=== PATIENT | male | born 1955 | race Caucasian/White ===

== ENCOUNTER → 2017-07-31 08:10 | Outpatient (CLI) | payer OTHER, SELFPAY ==
--- NOTE | 2017-07-31 08:10 | DT_ITS ---
This patient was seen during an EMR downtime July 31, 2017 - August 07, 2017. This patient may have a combination of paper and electronic documentation or all paper documentation. All documentation is viewable within the e-chart portion of [facility] for each patient visit.
[2017-08-06 09:13] LABS: ALB/GLOB Ratio 1.2 RATIO (0.9-2.4); AST(SGOT) 12 U/L (15-37); Alanine Aminotransfer ALT/SGPT 34 U/L (16-61); Albumin, Serum 3.9 g/dL (3.2-5.0); Alkaline Phosphatase 66 U/L (45-117); BUN 15 mg/dL (7-18); BUN/Creat Ratio 15.6 RATIO (10-20); Calcium,Total 8.9 mg/dL (8.5-10.1); Creatinine, Serum 0.96 mg/dL (0.70-1.30); EST Glomerular Filtration Rate 84 mL/min (>60); Est Glom Filt Rate - Afr Amer 102 mL/min (>60); Globulin 3.3 g/dL (2.2-4.2); Glucose 104 mg/dL (74-106); Protein, Total 7.2 g/dL (6.4-8.2)
[2017-08-06 09:14] LABS: Anion Gap 7 (5-15); Chloride 104 mmol/L (98-107); Cholesterol 175 mg/dL (200); High Density Lipoprotein 63 mg/dL; PSA,Total - Annual Screen 5.47 ng/mL (0.00-4.00); Potassium 4.4 mmol/L (3.5-5.1); Sodium Level 140 mmol/L (136-145); Triglycerides 80 mg/dL; Very Low Density Lipoprotein 16 mg/dL (5-40)
== END ==
PROVIDERS: Family Provider Family Medicine; PCP Family Medicine; Visit Provider Family Medicine
DX: Z00.00 Encounter for general adult medical examination without abnormal findings (principal); Z12.5 Encounter for screening for malignant neoplasm of prostate; I10 Essential (primary) hypertension; E78.00 Pure hypercholesterolemia, unspecified
CPT/HCPCS: 36415; 80053; 80061; 84153; G0103

== ENCOUNTER → 2017-10-31 11:06 | Outpatient (CLI) | payer OTHER, SELFPAY ==
[2017-11-01 13:42] LABS: PSA, Free 0.96 ng/mL; PSA, Free % 18.5 % (.); PSA, Total Ultrasensitive 5.2 ng/mL (0.0-4.0)
== END ==
PROVIDERS: Family Provider Family Medicine; PCP Family Medicine; Visit Provider Family Medicine
DX: R97.20 Elevated prostate specific antigen [PSA] (principal)
CPT/HCPCS: 36415; 84153; 84154

== ENCOUNTER → 2018-10-01 10:18 | Outpatient (CLI) | payer MEDICARE, OTHER, SELFPAY ==
[2018-10-01 12:52] LABS: ALB/GLOB Ratio 1.3 RATIO (0.9-2.4); AST(SGOT) 13 U/L (15-37); Alanine Aminotransfer ALT/SGPT 33 U/L (16-61); Albumin, Serum 3.8 g/dL (3.2-5.0); Alkaline Phosphatase 56 U/L (45-117); Anion Gap 8 (5-15); BUN 11 mg/dL (7-18); BUN/Creat Ratio 11.1 RATIO (10-20); Calcium,Total 8.8 mg/dL (8.5-10.1); Chloride 106 mmol/L (98-107); Cholesterol 183 mg/dL (200); Creatinine, Serum 0.99 mg/dL (0.70-1.30); EST Glomerular Filtration Rate 80 mL/min (>60); Est Glom Filt Rate - Afr Amer 97 mL/min (>60); Glucose 99 mg/dL (74-106); High Density Lipoprotein 67 mg/dL; Protein, Total 6.8 g/dL (6.4-8.2); Sodium Level 141 mmol/L (136-145); Triglycerides 142 mg/dL; Very Low Density Lipoprotein 28 mg/dL (5-40)
[2018-10-02 10:44] LABS: PSA, Free 1.15 ng/mL; PSA, Total Ultrasensitive 6.4 ng/mL (0.0-4.0)
== END ==
PROVIDERS: Family Provider Family Medicine; PCP Family Medicine; Visit Provider Family Medicine
DX: R97.20 Elevated prostate specific antigen [PSA] (principal); I10 Essential (primary) hypertension
CPT/HCPCS: 36415; 80053; 80061; 84153; 84154

== ENCOUNTER → 2018-11-19 08:00 | Outpatient (CLI) | payer MEDICARE, OTHER, SELFPAY ==
--- NOTE | 2018-11-19 08:00 | PROSBIL_PTH ---
PATIENT: FERN TAPIA LOC: [facility] U#:[id number] AGE/SX: 69/M ROOM: RE11/19/[address]: Dr. Houston Conklin MD : 1955 BED: DIS: SPEC #: [id number] RECD: 11/20/18 13:27 STATUS: YO MARILYNN #: [id number] SHANTELL: 11/19/18 08:[address]: Houston Conklin DEPT: SURGICAL PATHOLOGY RECD BY: Hernandez Tanner ENTERED: 11/20/18 13:28 SP TYPE: PROST BX MARTHA DR: Dr. Darin Walton MD Tissues: A - PROSTATE RIGHT B - PROSTATE RIGHT C - PROSTATE RIGHT D - PROSTATE LEFT E - PROSTATE LEFT F - PROSTATE LEFT Procedures: PROSTATE BX HEADER OPERATION: Prostate biopsy PRE-OP DIAGNOSIS: Elevated PSA TISSUE SUBMITTED: A - Right apex, B - Right mid, C - Right base, D - Left apex, E - Left mid, F - Left base MICROSCOPIC DIAGNOSIS A. Right prostate, apex, core biopsy: Prostatic adenocarcinoma: Lamar grade: 3+4=7 Number of cores involved: 2/2 Proportion of tissue involved: 50% Perineural invasion: Not identified. Greatest tumor length: 0.8 cm Focal high-grade prostatic intraepithelial neoplasia (HGPIN). B. Right prostate, mid, core biopsy: Prostatic adenocarcinoma: Lamar grade: 3+4=7 Number of cores involved: 2/2 Proportion of tissue involved: ~60% Perineural invasion: Present. Greatest tumor length: 1 cm Focal high-grade prostatic intraepithelial neoplasia (HGPIN). C. Right prostate, base, core biopsy: Prostatic adenocarcinoma: Manjinder grade: 3+4=7 Number of cores involved: 3/3 Proportion of tissue involved: ~75% Perineural invasion: Present. Greatest tumor length: 0.5 cm Focal high-grade prostatic intraepithelial neoplasia (HGPIN). D. Left prostate, apex, core biopsy: Prostatic tissue, negative for malignancy. E. Left prostate, mid, core biopsy: Prostatic tissue, negative for malignancy. F. Left prostate, base, core biopsy: Focal high-grade prostatic intraepithelial neoplasia (HGPIN). SJ:apple 11/21/18 COMMENT Case has been reviewed in consultation with Dr. Nance who concurs with the above diagnosis. IDC:AM MICROSCOPIC DESCRIPTION Slides are reviewed. GROSS DESCRIPTION A - Received is one container designated prostate, right apex. The specimen consists of two elongated fragments of light dorman-white soft tissue each measuring 1 cm in length and 0.1 cm in diameter. The specimen is totally submitted in one cassette. B - Received is one container designated prostate, right mid. The specimen consists of two elongated fragments of light dorman-white soft tissue each measuring 1 cm in length and 0.1 cm in diameter. The specimen is totally submitted in one cassette. C - Received is one container designated prostate, right base. The specimen consists of three elongated fragments of light dorman-white soft tissue each measuring 1.5 cm in length and 0.1 cm in diameter. The specimen is totally submitted in one cassette. D - Received is one container designated prostate, left apex. The specimen consists of two elongated fragments of light dorman-white soft tissue each measuring 0.8 cm in length and 0.1 cm in diameter. The specimen is totally submitted in one cassette. E - Received is one container designated prostate, left mid. The specimen consists of two elongated fragments of light dorman-white soft tissue each measuring 1 cm in length and 0.1 cm in diameter. The specimen is totally submitted in one cassette. F - Received is one container designated prostate, left base. The specimen consists of two elongated fragments of light dorman-white soft tissue each measuring 0.8 cm in length and 0.1 cm in diameter. The specimen is totally submitted in one cassette. / AM:rg 11/20/18 TC:0 [facility]: [id number]
== END ==
PROVIDERS: Family Provider Family Medicine; PCP Family Medicine; Referring Provider Urology; Visit Provider Urology
DX: R97.20 Elevated prostate specific antigen [PSA] (principal)
CPT/HCPCS: 88305; G0416

== ENCOUNTER → 2018-11-26 13:33 | Outpatient (CLI) | payer MEDICARE, OTHER, SELFPAY ==
--- NOTE | 2018-11-26 13:35 | CT_ITS ---
STUDY: CT ABDOMEN AND PELVIS WITH CONTRAST REASON FOR EXAM: Male, 63 years old. New diagnosis of Prostate cancer. RADIATION DOSAGE (If Supplied By Facility): CTDIvol = ( 15.03 ) mGy, DLP = ( 972.07 ) mGycm TECHNIQUE: Transaxial images were obtained from the dome of the diaphragm to the symphysis pubis with oral contrast. IV/Oral Isovue 300 100ml was administered. Sagittal and coronal images were reconstructed. Individualized dose optimization techniques were used for this CT. COMPARISON: None. FINDINGS: The visualized lung bases are unremarkable. The visualized portions of the heart are within normal limits. There are a few subcentimeter low densities consistent with cysts scattered in the liver. Normal gallbladder and extrahepatic biliary system. Normal spleen. Normal pancreas. Normal bilateral adrenal glands. Normal right kidney. Normal left kidney. No hydronephrosis. Normal visualized stomach. Normal small intestine. There are a few sigmoid colon diverticula consistent with diverticulosis. The appendix is visualized and appears normal. There is moderate atherosclerotic calcification of the abdominal aorta and proximal iliac arteries, without a demonstrated aneurysm. Normal inferior vena cava. Normal retroperitoneum. Normal urinary bladder. There is mild enlargement of the prostate gland, measuring 4.5 x 3.5 x 4.75 cm (R 39 cc). Coarse calcification in the prostate gland just right of midline Normal abdominal wall. There are mild degenerative changes of the visualized lower thoracic and lumbar spine. Irregular 1.5 x 0.9 x 1.3 cm sclerotic density in the medial right ilium (series 2 image 95, series 601 image 81) has a benign appearance, such as that seen with local bone infarct. 1.75 x 1.0 x 0.8 cm sclerotic density in the posterolateral margin of the right femoral head (series 2 image 119, series 601 image 68) is difficult to characterize. CT/Abdomen/Pelvis WITH Contrast IMPRESSION: 1. Mildly enlarged prostate gland. No hydronephrosis. 2. Sclerotic densities in the medial right ilium as well as the right femoral head, likely benign. One might consider correlation with bone scan to exclude an active process. 3. Moderate aortoiliac atherosclerotic calcific plaquing. No demonstrated aneurysm. 4. There are a few small diverticula of the sigmoid colon without acute diverticulitis. No sign of bowel obstruction. The appendix is normal. 5. A few subcentimeter benign-appearing cysts are scattered in the liver. Electronically Signed: Andrés Horn MD at 15:03 EDT , Service support ,
[2018-11-26 13:46] LABS: CREATININE FINGERSTICK 0.8 mg/dL (0.70-1.30)
== END ==
PROVIDERS: Family Provider Family Medicine; PCP Family Medicine; Referring Provider Urology; Visit Provider Urology
DX: C61 Malignant neoplasm of prostate (principal)
CPT/HCPCS: 74177; Q9967

== ENCOUNTER → 2018-11-30 10:06 | Outpatient (CLI) | payer MEDICARE, OTHER, SELFPAY ==
--- NOTE | 2018-11-30 10:11 | NM_ITS ---
CLINICAL: 63-year-old male with recent diagnosis of primary prostate carcinoma. WHOLE BODY 99m Tc MDP RADIONUCLIDE BONE SCINTIGRAPHY COMPARISON: CT of the abdomen-pelvis report 11/26/2018 FINDINGS: Following the intravenous administration of 27.0 mCi of 99m Tc MDP, whole body bone images reveal: 1. Increased radiopharmaceutical concentration appears evident in the acromioclavicular, glenohumeral and sternoclavicular compartments of both shoulders, the left knee, posterior midline sacrum. 2. The remaining skeletal structures are scintigraphically unremarkable with normal-appearing renal images and urinary bladder activity identified. An asymmetric increase in uptake is noted in the right superior orbital ridge-frontozygomatic suture consistent with a normal variant. NM/Bone Scan Whole Body IMPRESSION: 1. The increase in radiopharmaceutical concentration identified in the bilateral shoulders, left knee, posterior midline sacrum is most consistent with degenerative arthritis. 2. There is no definitive scintigraphic evidence of diffuse axial skeletal metastatic disease on the current examination. Electronically Signed: Ric Romero DO at 9:45 EDT Tel , Service support ,
== END ==
PROVIDERS: Family Provider Family Medicine; PCP Family Medicine; Referring Provider Urology; Visit Provider Urology
DX: C61 Malignant neoplasm of prostate (principal)
CPT/HCPCS: 78306

== ENCOUNTER 2019-02-06 05:25 | Day surgery (SDC) | payer MEDICARE, OTHER, SELFPAY ==
[2019-01-29 10:57] VITALS: BP 134/85; PULSE 73; RESP 16; TEMP 36.5; O2SAT 95; BMI 29.5
[2019-01-29 12:11] LABS: Hematocrit 46.9 % (40-54); Hemoglobin 15.9 g/dL (13.0-16.5); Mean Corp Hgb Conc 33.9 g/dL (32-36); Mean Corpuscular Hgb 30.6 pg (27.0-32.0); Mean Corpuscular Volume 90.2 fL (80-94); Mean Platelet Vol. 10.2 fl (6.2-12.0); Platelet Count 307 K/mm3 (150-450); RBC Distribution Width CV 12.3 % (11.6-14.6); RBC Distribution Width SD 40.5 fl (35.1-43.9); White Blood Count 5.3 K/mm3 (4.4-11.0)
[2019-01-29 12:50] LABS: Anion Gap 6 (5-15); BUN 12 mg/dL (7-18); BUN/Creat Ratio 12.4 RATIO (10-20); Calcium,Total 9.3 mg/dL (8.5-10.1); Chloride 107 mmol/L (98-107); Creatinine, Serum 0.97 mg/dL (0.70-1.30); EST Glomerular Filtration Rate 83 mL/min (>60); Est Glom Filt Rate - Afr Amer 100 mL/min (>60); Estimated Creatinine Clearance 78.39 ml/min; Glucose 88 mg/dL (74-106); Potassium 4.1 mmol/L (3.5-5.1); Sodium Level 140 mmol/L (136-145)
[2019-02-06] VITALS (11 sets, daily range): BP systolic 111–162; BP diastolic 73–90; PULSE 64–93; RESP 16–18; TEMP 36.3–37; O2SAT 94–99; BMI 29.5
[2019-02-06] MEDS: Lactated Ringers 1,000 ML 100 ML IV ×3 (06:17→13:29)
--- NOTE | 2019-02-06 07:30 | PROST_PTH ---
PATIENT: FERN TAPIA LOC: [facility] [place] U#:[id number] AGE/SX: 63/M ROOM: RE02/06/[address]: Dr. Houston Conklin MD : 1955 BED: DIS: 02/07/2019 SPEC #: [id number] RECD: 02/06/19 16:47 STATUS: YO RERosemary #: [id number] SHANTELL: 02/06/19 07:[address]: Houston Conklin DEPT: SURGICAL PATHOLOGY RECD BY: Hernandez Tanner ENTERED: 02/07/19 09:55 SP TYPE: PROSTATE OTHR DR: Dr. Darin Walton MD Tissues: A - Prostate, NOS B - Lymph node, NOS C - Lymph node, NOS D - Prostate, NOS E - Prostate, NOS Procedures: Surgery Specimen Level IV Surgery Specimen Level V Surgery Specimen Level HEADER OPERATION: Lap robotic prostatectomy PRE-OP DIAGNOSIS: Malignant neoplasm of prostate TISSUE SUBMITTED: A - Fat over prostate, B - Right obturator lymph node, C - Left obturator lymph node, D - Prostate, E - Apical margin MICROSCOPIC DIAGNOSIS A. Fat over prostate: A piece of mature adipose tissue, negative for carcinoma. B. Right obturator lymph node, biopsy: Four out of four lymph nodes, negative for metastatic carcinoma. C. Left obturator lymph node, biopsy: Three out of three lymph nodes, negative for metastatic carcinoma. D. Prostate, radical prostatectomy: Prostatic adenocarcinoma. E. Apical margin: Benign prostatic tissue, negative for carcinoma. SJ:apple 02/08/19 PROSTATE CANCER (RADICAL) SUMMARY: (Including specimens A to E) Procedure: Radical Prostatectomy Prostate Size: Weight: 54 gm Size: 4.5 x 4.5 x 3.6 cm Histologic Type: Acinar adenocarcinoma Histologic Grade: Group 2 (Manjinder score 3+4=7) Percentage of Pattern 4 in Gorham Score 7: ~30% Tumor Quantitation: Percentage of prostate involved by tumor: ~30% Extraprostatic Extension: Present, focal Location of Extraprostatic Extension: Right and left posterior surface. Urinary Bladder Neck Invasion: Not applicable Seminal Vesicle Invasion: Not identified Lymphovascular Invasion: Not identified Perineural Invasion: Present, frequent Margins: focally involved by invasive carcinoma. See comment. Treatment Effect: No known presurgical therapy. Regional Lymph Nodes: Number of lymph nodes involved by carcinoma: 0 Total number of lymph nodes examined: 7 Distant Metastasis: Not applicable Additional Pathologic Findings: High-grade prostatic intraepithelial neoplasia (HGPIN). - Benign nodular prostatic hyperplasia. PATHOLOGIC STAGE: pT3a pN0 Mx The above summary is in compliance with [employer] (CAP) Cancer Protocols Checklist and [place] [employer] on Cancer (AJCC), Staging Manual, 8th Ed. COMMENT The apical enface margin in specimen D, prostate, radical prostatectomy specimen is involved by tumor; however, the separately submitted apical margin is negative for carcinoma. The tumor is also focally present at the posterior margin involving right and left lobe. The tumor involves the apical, mid and basal portion of the right lobe and measures 2.5 x 1.5 cm (measured microscopically); and apical and mid portion of the left lobe and measures 1.0 x 0.5 cm (measured microscopically). Please make reference to previous specimen ([id number]) right prostate, apex, mid and base, core biopsies with diagnosis of prostatic adenocarcinoma and left prostate, base, core biopsy with diagnosis of focal high-grade prostatic intraepithelial neoplasia and left prostate, apex and mid, core biopsies with diagnosis of prostatic tissue, negative for malignancy. Case has been reviewed in consultation with Dr. Carter who concurs with the above diagnosis. IDC:SJ MICROSCOPIC DESCRIPTION Slides are reviewed. GROSS DESCRIPTION A - Received in fixative is one container labeled with the patient's name and designated fat over prostate. The specimen consists of an irregular fragment of yellow fatty tissue measuring 2 x 1 x 0.2 cm. The specimen is totally submitted in one cassette. B - Received in fixative is one container labeled with the patient's name and designated right obturator lymph node. The specimen consists of multiple irregular fragments of yellow fatty tissue that in aggregate measure 5 x 4 x 1 cm. Dissection reveals four indurated fragments of light dorman-yellow tissue ranging in size from 1 to 1.7 cm in greatest dimension. These nodules are submitted in their entirety in one cassette. C - Received in fixative is one container labeled with the patient's name and designated left obturator lymph node. The specimen consists of multiple irregular fragments of yellow fatty tissue that in aggregate measure 3 x 2 x 1 cm. The specimen is submitted in its entirety in one cassette. D - Received in fixative is one container labeled with the patient's name and designated prostate. The specimen consists of a prostate with seminal vesicles. The specimen as a whole measures 7 x 4.5 x 4 cm. The prostate gland measures 4.5 x 4.5 x 3.6 cm. The specimen weighs 54 gm. The external surface is smooth and glistening. No distinct nodularities or mass lesions are identified. The specimen is differentially inked as follows: anterior - red, right half of gland and right seminal vesicle - blue, left half of gland and left seminal vesicle - green, and entire posterior surface - black. The gland is cut from apex to base of gland serially at approximately 3-4 mm sections. No distinct mass lesion is identified. The cut surfaces are dorman-yellow in color. Sections are submitted as follows: 1 - apex (distal mucosal shaved margin, 2 - bladder shave margin (proximal mucosal margin), 3 - right and left seminal vesicles, 4-6 - apex, 7-14 - mid portion of gland, 15-18 - basal portion of gland, 19 & 20 - most basal section of gland. E - Received in fixative is one container labeled with the patient's name and designated apical margin. The specimen consists of an irregular fragment of dorman tissue measuring 0.3 x 0.2 x 0.1 cm. The specimen is totally submitted in one cassette. / AM:apple 02/07/19 TC:0 CPT: 01066, 43562, 45699 x2
--- NOTE | 2019-02-06 07:35 | DCINST_ITS ---
Discharge Diet: Light diet - advance as tolerated, Soft diet Discharge Activity: May Not Drive, May not drive while taking narcotic pain medications., May Shower Return to work on:: 03/13/19 May shower in (days): 1 Lifting Restrictions: no lifting > 10lbs for 6 weeks Call your doctor if your incision/area has: Continuous Slow Oozing, Sudden Increased Bleeding, Increased Pain/ Swelling, Increased Redness, Foul Smelling Discharge, Swelling at the incision site Call your doctor if you observe: Fever of 101 or Higher, Uncontrolled pain Suture Line Care: Avoid Pulling/Pushing, Avoid Pinching/Bending Catheter: Singh to leg bag Drain: Sharon Allergies/Adverse Reactions: Allergies No Known Allergies Allergy (Verified 02/06/19 05:57) Medications to take at Discharge Aspirin E.C. [Ecotrin] 81 mg PO DAILY@0800 01/29/19 Lisinopril/Hydrochlorothiazide [Lisinopril-Hctz 20-12.5 mg Tab] 1 ea PO DAILY 01/29/19 Multivit-Min/FA/Lycopen/Lutein [Centrum Silver Men Tablet] 1 ea PO DAILY 01/29/19 Simvastatin [Zocor] 40 mg PO QHS 01/29/19 Primary Care Physician: Diallo Walton MD [Primary Care Provider] - Test Results: Test results from this visit will be discussed in further detail at your follow- up appointment, if applicable. Please Follow Up With: Houston Conklin MD When: please call to make an appointment- 10 days Proposed Discharge Date: 02/07/19
[2019-02-06] MEDS: Cefazolin 2 GM in 0.9% Normal Saline 100 ML IV (08:34)
[2019-02-06] MEDS: Bupivacaine Mpf 0.5% 30 ML VIAL (11:35)
--- NOTE | 2019-02-06 11:43 | OP.PCM_ITS ---
Report of Operation Date of Procedure: 02/06/19 Pre-Operative Diagnosis: Prostate cancer [place] 7 disease involving the right side of the prostate Post-Operative Diagnosis: Same Surgery/Procedure Performed:: Laparoscopic robotic assisted radical prostatectomy, bilateral nerve sparing dissection, bilateral pelvic lymph node dissection Description of Surgical Findings:: 63-year-old male who presented to the office with elevated PSA he underwent a prostate biopsy biopsy demonstrated [place] 7 disease involving the right side of the prostate high-volume disease in consultation with the patient we discussed the options regarding his prostate cancer one would be close observation, surgical removal prostate, radiation therapy we talked about what risks are involved with the each procedure with surgery specifically we talked about the risk of losing ability to get a natural erections that he may need medications are different prescriptions or devices etc. to maintain erections or get erections. He is still sexually active. With radiation we talked about the side effects of radiation including radiation cystitis proctitis radiation injury to the nerves for erections bladder control problems urinary problems. After reviewing all the side effects and different options between surgery and radiation observation he elected to undergo radical prostatectomy with bilateral nerve sparing. 63-year-old male was taken back to the operating room and smooth induction of general anesthesia he was placed supine on the table. The abdomen was shaved prepped and draped in usual sterile fashion. He was placed in lithotomy position. Nathan catheter was placed in the bladder. The bladder was drained with clear yellow yellow urine. I then made a an incision above the umbilicus infiltrated the skin with half percent % Marcaine and then introduced a Veress needle into the CO2 into the peritoneal cavity. We then placed the camera trocar end we then placed a right robotic trocar and left robotic trocar and and second left robotic trocar we placed an air seal port and and suction port for the post production assistant. We then docked the robot and proceeded with the dissection of the colon was out of the pouch of Sergey in the posterior aspect between the bladder and the rectum I opened up the peritoneum over the seminal vesicles and vas deferens we did our dissection here in this area using no electrocautery and only using bipolar and and mint this q. amounts I first dissected out the right vas deferens following all the way back up to behind the seminal vesicles were transected the right vas deferens with the bipolar and then transected with scissors I then came up on the seminal vesicles we used the bipolar to pinpoint cautery to separate the perforating the blood vessels off the of the seminal vesicle and freed up the seminal vesicle all the way up to the prostate on the right side I then went to the left side and the vas deferens was identified and transected with the bipolar I then freed up the seminal vesicle the left side a ll the way up to the prostate I then identified th Denonvilliers' fascia fascia that was running below the prostate I was able to push this down off the prostate all the way up to the apex and then dissected it laterally to the right side into the left side to free the prostate off the rectum above Denonvilliers' fascia. Once this dissection was completed then we pulled out of the pelvis we then dropped the bladder placed the bladder on traction with the fourth arm created the space of Retzius Retzius. I think started with the dissection of the pelvic lymph nodes on the right side I first dissected the fat off the external iliac artery and iliac vein and then dissected deeper into the pelvis until I identified the obturator nerve I then used large clips to clip along the lateral wall of the pelvis down to the obturator nerve and in doing so this I took the obturator lymph node packet some of the packets broke up a little pieces but all the pieces were then individually dissected out and sent off as a specimen there was fairly healthy lymph node tissue that was removed from the right side after the lymph node dissection was completed the boundaries of course were the lateral pelvic wall the obturator nerve the note of [place] and the iliac vein. We then went to the left side and again dissected a pelvic lymph node dissection the left side and the vacuum drum drier operator space again it was the lateral pelvic wall the obturator nerve and the lymph node of Hecla I then dissected the lymph node tissue off the lateral pelvic wall off the external iliac vein used clips to placed clips on the lymph nodes and then dissected lymph nodes free and handed off as a specimen. Took about 45 minutes to do the dissection of the lymph nodes on both sides once this was completed then we proceeded with the prostate dissection I freed off the fat from the prostate this was sent off as a specimen as a fat of her prostate., FOP. I then dissected the endopelvic fascia off the apex of the prostate at the right and left side dissected to the dorsal vein complex transected both the puboprostatic ligaments and then placed a stitch in the dorsal vein complex to obtain good hemostasis. We then move the catheter around and identified the junction between the bladder and the prostate and the bladder neck and then dissected using bipolar to the catheter then after this we switched over to monopolar just to dissect between the posterior bladder neck and the seminal vesicles and then we took the monopolar off I then went and identified the vas deferens and seminal vesicles that been previously dissected and pulled these out we then placed a prostate on lateral traction with the fourth arm I incised the endopelvic fascia over the top of the prostate dissected the endopelvic fascia off the lateral aspect the prostate sweeping it laterally until I encountered the neurovascular bundle that was running on the lateral aspect of the right prostate we freed up the bundle off the prostate I then identified the vascular pedicle on the right side and use medium size clips on the vascular pedicle and then used diced section and little snips to then free the neurovascular bundle off the right side of the prostate the neurovascular was then slowly swept off the right of the prostate was a little sticky and there is few areas where he had to do some fine cutting in order to free up the neurovascular bundle but I was able to do this in a complete fashion and dissected all the way up to the apex on the right side. We then went to the left side and we incised the endopelvic fascia over the left side of the prostate swept this tissue off the left side of the prostate and identified the neurovascular bundle on the left side of the prostate we dissected off sweeping towards the pedicle pedicle was then identified and then we used small clips to clip to the pedicle and then we able to dissect the left neurovascular bundle off the prostate this came back in a very nice easy fashion with no stickiness in a very nice plane all the way up to the apex. I then transected to the dorsal vein complex we then placed extra stitches in the dorsal vein complex obtain hemostasis I then transected circumferentially around the urethra makes making sure had a nice urethral stump and then transected through the urethra and then put the prostate in an Endo Catch bag. We then reconstructed the bladder neck I closed up the posterior bladder neck and a tennis racquet fashion in order to make a nice small bladder neck to match the size of the urethra. I then laid my stitches between the bladder neck and the urethra we did find a small bleeder in the along the right vascular lymph nodes and along the right neurovascular bundle and use cautery to control the small bleeding we then placed FloSeal in the pelvis to control bleeding at the place another stitch in the dorsal vein complex to control bleeding but once this was done then I continued my anastomosis and I ran the stitches from the anastomosis from the bladder neck to the urethra over catheter we started at 6 o'clock position working her way to the 12 o'clock position in a continuous fashion at the end of the dissection then I flushed the bladder and there was a nice watertight anastomosis between the bladder and the urethra and in the in the bladder neck of the beak reconstructed. We then extracted the prostate through the supraumbilical site closed at site with interrupted stitches we undocked the robot we closed our air seal port with the Gregorio Bourgeois stitch all the instruments were accounted for there is minimal blood loss during the case all the sponges and needles were reported to be correct and patient anesthetic is currently being reversed is being taken back to the PACU in good condition uncle talk to the family. Type of Anesthesia:: General Drains: nathan. - Admit VTE Documentation VTE Present on Admission: No VTE Mechan Device Prophylaxis: SCD's
[2019-02-06] MEDS: Ketorolac 15 MG/ML Vial IV ×3 (12:24→22:58)
[2019-02-06 12:42] LABS: Hematocrit 41.3 % (40-54); Hemoglobin 13.9 g/dL (13.0-16.5); Mean Corp Hgb Conc 33.7 g/dL (32-36); Mean Corpuscular Hgb 30.5 pg (27.0-32.0); Mean Corpuscular Volume 90.8 fL (80-94); Mean Platelet Vol. 10.2 fl (6.2-12.0); Platelet Count 265 K/mm3 (150-450); RBC Distribution Width CV 12.3 % (11.6-14.6); Red Blood Count 4.55 M/mm3 (4.6-6.2); White Blood Count 12.5 K/mm3 (4.4-11.0)
[2019-02-06 13:04] LABS: Anion Gap 5 (5-15); BUN 14 mg/dL (7-18); BUN/Creat Ratio 13.2 RATIO (10-20); Calcium,Total 8.4 mg/dL (8.5-10.1); Chloride 107 mmol/L (98-107); Creatinine, Serum 1.06 mg/dL (0.70-1.30); EST Glomerular Filtration Rate 74 mL/min (>60); Est Glom Filt Rate - Afr Amer 90 mL/min (>60); Estimated Creatinine Clearance 71.74 ml/min; Glucose 162 mg/dL (74-106); Potassium 4.4 mmol/L (3.5-5.1); Sodium Level 139 mmol/L (136-145)
[2019-02-06] MEDS: 0.45% Normal Saline 1,000 ML 125 ML IV ×2 (13:58→21:39)
[2019-02-06] MEDS: Acetaminophen 500 MG Tablet PO (15:34)
[2019-02-06] MEDS: Ciprofloxacin 400 MG/200 ML BAG 200 MG IV (16:55)
[2019-02-06] MEDS: Morphine 2 MG/ML Syringe IV ×3 (17:40→22:06)
[2019-02-06] MEDS: HYDROcodone Bitartrate/Apap 5/325 Tablet PO (20:29)
[2019-02-06] MEDS: Docusate Sodium 100 MG Capsule PO (20:30)
[2019-02-06] MEDS: Atorvastatin Calcium 20 MG Tablet PO (20:30)
[2019-02-06] MEDS: Tolterodine Tartrate 4 MG CAP.SA PO (20:50)
--- NOTE | 2019-02-06 21:05 | NURSING ---
pt complaint of bladder discomfort like he is not emptying. nathan draining, bladder scanned for 0mL. medication given. pt ambulated in mayers and returned to his chair
[2019-02-06] MEDS: 0.9% Saline Lock 10 ML Syringe IV ×2 (22:07→22:59)
[2019-02-07] MEDS: Morphine 2 MG/ML Syringe IV (01:04)
[2019-02-07] MEDS: 0.9% Saline Lock 10 ML Syringe IV ×3 (01:04→11:21)
[2019-02-07 01:08] VITALS: BP 139/81; PULSE 109; RESP 16; TEMP 37.1; O2SAT 94
[2019-02-07] MEDS: Ciprofloxacin 400 MG/200 ML BAG 200 MG IV (04:19)
[2019-02-07] MEDS: HYDROcodone Bitartrate/Apap 5/325 Tablet PO ×2 (04:20→10:20)
[2019-02-07 04:25] VITALS: BP 134/74; PULSE 94; RESP 16; TEMP 36.8; O2SAT 95
[2019-02-07] MEDS: 0.45% Normal Saline 1,000 ML 125 ML IV (05:03)
[2019-02-07] MEDS: Ketorolac 15 MG/ML Vial IV ×2 (05:04→11:21)
[2019-02-07 06:36] LABS: Hematocrit 28.5 % (40-54); Mean Corp Hgb Conc 35.1 g/dL (32-36); Mean Corpuscular Hgb 31.3 pg (27.0-32.0); Mean Corpuscular Volume 89.1 fL (80-94); Mean Platelet Vol. 10.3 fl (6.2-12.0); Platelet Count 224 K/mm3 (150-450); RBC Distribution Width CV 12.4 % (11.6-14.6); RBC Distribution Width SD 40.8 fl (35.1-43.9); White Blood Count 9.3 K/mm3 (4.4-11.0)
[2019-02-07 07:00] LABS: Anion Gap 8 (5-15); BUN 16 mg/dL (7-18); Calcium,Total 7.8 mg/dL (8.5-10.1); Chloride 102 mmol/L (98-107); Creatinine, Serum 1.23 mg/dL (0.70-1.30); EST Glomerular Filtration Rate 63 mL/min (>60); Est Glom Filt Rate - Afr Amer 76 mL/min (>60); Estimated Creatinine Clearance 61.82 ml/min; Glucose 170 mg/dL (74-106); Sodium Level 134 mmol/L (136-145)
[2019-02-07 07:50] VITALS: BP 143/83; PULSE 110; RESP 18; TEMP 36.8; O2SAT 97
[2019-02-07] MEDS: Docusate Sodium 100 MG Capsule PO (07:53)
[2019-02-07] MEDS: hydroCHLOROthiazide 12.5mg 12.5 MG PO (07:53)
[2019-02-07] MEDS: Multivitamins,Ther W-Minerals Tablet 1 TABLET PO (07:53)
[2019-02-07] MEDS: Lisinopril 20 MG Tablet PO (07:54)
[2019-02-07] MEDS: Pantoprazole Sodium 20 MG Tablet PO (07:54)
[2019-02-07] MEDS: Acetaminophen 500 MG Tablet PO (07:59)
[2019-02-07] MEDS: ChlorproMAZINE 25 MG Tablet PO (11:20)
== END 2019-02-07 11:45 | disposition home or self-care (01) ==
LOC: SDC 05:25 → AC 05:25 → ACINP 02-07 07:34 → MS2 02-07 07:35
PROVIDERS: Family Provider Family Medicine; PCP Family Medicine; Referring Provider Urology; Visit Provider Urology
PROC: 0VT04ZZ Resection of Prostate, Percutaneous Endoscopic Approach (ICD-10-PCS; CPT 55866; principal; 2019-02-06 07:10)
DX: C61 Malignant neoplasm of prostate (principal); F17.200 Nicotine dependence, unspecified, uncomplicated; R97.20 Elevated prostate specific antigen [PSA]; I10 Essential (primary) hypertension; E78.00 Pure hypercholesterolemia, unspecified; F10.20 Alcohol dependence, uncomplicated; Y90.9 Presence of alcohol in blood, level not specified
CPT/HCPCS: 38571; 55866; 36415; 80048; 85027; 86850; 86900; 86901; 88305; 88307; 88309; 99251; J7120; A4216; G0463; J0744; J2405

== ENCOUNTER → 2019-03-26 10:20 | Outpatient (CLI) | payer MEDICARE, OTHER, SELFPAY ==
[2019-02-06 14:11] VITALS: BMI 29.5
[2019-03-26 11:44] LABS: PSA,Total- Diagnostic < 0.01 ng/mL (0.0-4.0)
== END ==
PROVIDERS: PCP Family Medicine; Referring Provider Urology; Visit Provider Urology
DX: C61 Malignant neoplasm of prostate (principal)
CPT/HCPCS: 36415; 84153

== ENCOUNTER → 2019-07-26 13:43 | Outpatient (CLI) | payer MEDICARE, OTHER, SELFPAY ==
[2019-02-06 14:11] VITALS: BMI 29.5
[2019-07-26 15:48] LABS: PSA,Total- Diagnostic < 0.01 ng/mL (0.0-4.0)
== END ==
PROVIDERS: PCP Family Medicine; Referring Provider Urology; Visit Provider Urology
DX: C61 Malignant neoplasm of prostate (principal)
CPT/HCPCS: 36415; 84153

== ENCOUNTER → 2020-01-24 11:30 | Outpatient (CLI) | payer MEDICARE, OTHER, SELFPAY ==
[2019-02-06 14:11] VITALS: BMI 29.5
[2020-01-24 12:36] LABS: ALB/GLOB Ratio 1.3 RATIO (0.9-2.4); AST(SGOT) 11 U/L (15-37); Alanine Aminotransfer ALT/SGPT 30 U/L (16-61); Albumin, Serum 3.9 g/dL (3.2-5.0); Alkaline Phosphatase 64 U/L (45-117); Anion Gap 3 (5-15); BUN 12 mg/dL (7-18); BUN/Creat Ratio 12.4 RATIO (10-20); Calcium,Total 8.8 mg/dL (8.5-10.1); Chloride 106 mmol/L (98-107); Cholesterol 194 mg/dL (200); Creatinine, Serum 0.97 mg/dL (0.70-1.30); EST Glomerular Filtration Rate 82 mL/min (>60); Est Glom Filt Rate - Afr Amer 100 mL/min (>60); Globulin 3.1 g/dL (2.2-4.2); Glucose 105 mg/dL (74-106); High Density Lipoprotein 70 mg/dL; PSA,Total- Diagnostic < 0.01 ng/mL (0.0-4.0); Potassium 3.9 mmol/L (3.5-5.1); Sodium Level 138 mmol/L (136-145); Triglycerides 100 mg/dL; Very Low Density Lipoprotein 20 mg/dL (5-40)
== END ==
PROVIDERS: PCP Family Medicine; Referring Provider Urology; Visit Provider Urology
DX: C61 Malignant neoplasm of prostate (principal); E78.00 Pure hypercholesterolemia, unspecified
CPT/HCPCS: 36415; 80053; 80061; 84153

== ENCOUNTER → 2020-07-28 08:53 | Outpatient (CLI) | payer MEDICARE, OTHER, SELFPAY ==
[2019-02-06 14:11] VITALS: BMI 29.5
[2020-07-28 09:52] LABS: PSA,Total- Diagnostic 0.02 ng/mL (0.0-4.0)
== END ==
PROVIDERS: PCP Family Medicine; Referring Provider Urology; Visit Provider Urology
DX: C61 Malignant neoplasm of prostate (principal)
CPT/HCPCS: 36415; 84153

== ENCOUNTER → 2021-02-01 08:08 | Outpatient (CLI) | payer MEDICARE, OTHER, SELFPAY ==
[2021-02-01 09:48] LABS: Anion Gap 6 (5-15); BUN 14 mg/dL (7-18); BUN/Creat Ratio 13.2 RATIO (10-20); Calcium,Total 8.8 mg/dL (8.5-10.1); Chloride 106 mmol/L (98-107); Creatinine, Serum 1.06 mg/dL (0.70-1.30); EST Glomerular Filtration Rate 74 mL/min (>60); Est Glom Filt Rate - Afr Amer 90 mL/min (>60); Glucose 117 mg/dL (74-106); PSA,Total- Diagnostic 0.06 ng/mL (0.0-4.0); Sodium Level 140 mmol/L (136-145)
== END ==
PROVIDERS: PCP Family Medicine; Referring Provider Urology; Visit Provider Urology
DX: C61 Malignant neoplasm of prostate (principal)
CPT/HCPCS: 36415; 80048; 84153

== ENCOUNTER → 2021-08-17 | Outpatient (CLI) | payer MEDICARE, OTHER, SELFPAY ==
[2021-08-17 15:57] LABS: PSA,Total- Diagnostic 0.08 ng/mL (0.0-4.0)
== END | disposition home or self-care (01) ==
LOC: LAB 14:31
PROVIDERS: PCP Family Medicine; Visit Provider Urology
DX: C61 Malignant neoplasm of prostate (principal)
CPT/HCPCS: 36415; 84153

== ENCOUNTER → 2022-03-04 | Outpatient (CLI) | payer MEDICARE, OTHER, SELFPAY ==
[2022-03-04 08:25] LABS: PSA,Total- Diagnostic 0.08 ng/mL (0.0-4.0)
== END | disposition home or self-care (01) ==
LOC: LAB 07:29
PROVIDERS: PCP Family Medicine; Referring Provider Urology; Visit Provider Urology
DX: C61 Malignant neoplasm of prostate (principal)
CPT/HCPCS: 36415; 84153

== ENCOUNTER → 2022-09-08 | Outpatient (CLI) | payer MEDICARE, OTHER, SELFPAY ==
[2022-09-09 11:46] LABS: PSA,Total- Diagnostic 0.12 ng/mL (0.0-4.0)
== END | disposition home or self-care (01) ==
LOC: LAB 14:26
PROVIDERS: PCP Family Medicine; Referring Provider Urology; Visit Provider Urology
DX: C61 Malignant neoplasm of prostate (principal)
CPT/HCPCS: 36415; 84153; G0103

== ENCOUNTER → 2022-12-29 | Outpatient (CLI) | payer MEDICARE, OTHER, SELFPAY ==
[2022-12-29 15:49] LABS: ALB/GLOB Ratio 1.3 RATIO (0.9-2.4); AST(SGOT) 14 U/L (15-37); Alanine Aminotransfer ALT/SGPT 31 U/L (16-61); Albumin, Serum 3.9 g/dL (3.2-5.0); Alkaline Phosphatase 62 U/L (45-117); Anion Gap 8 (5-15); BUN 14 mg/dL (7-18); BUN/Creat Ratio 13.3 RATIO (10-20); Calcium,Total 8.9 mg/dL (8.5-10.1); Chloride 107 mmol/L (98-107); Cholesterol 162 mg/dL (200); Creatinine, Serum 1.05 mg/dL (0.70-1.30); EST Glomerular Filtration Rate 74 mL/min (>60); Est Glom Filt Rate - Afr Amer 90 mL/min (>60); Globulin 3.1 g/dL (2.2-4.2); Glucose 93 mg/dL (74-106); High Density Lipoprotein 59 mg/dL; Potassium 3.8 mmol/L (3.5-5.1); Sodium Level 140 mmol/L (136-145); Triglycerides 105 mg/dL; Very Low Density Lipoprotein 21 mg/dL (5-40)
[2023-01-02 10:01] LABS: Magnesium 2.4 mg/dL (1.6-2.6); Thyroid Stim Hormone (TSH) 2.51 uIU/mL (0.358-3.74)
== END | disposition home or self-care (01) ==
LOC: MFPLAB 13:53
PROVIDERS: PCP Family Medicine; Visit Provider Family Medicine
DX: E78.00 Pure hypercholesterolemia, unspecified (principal); R00.0 Tachycardia, unspecified
CPT/HCPCS: 36415; 80053; 80061; 83735; 84443

== ENCOUNTER → 2023-03-01 | Outpatient (CLI) | payer MEDICARE, OTHER, SELFPAY ==
--- NOTE | 2023-03-01 12:53 | ECHOD_ITS ---
Reason For Study: Aflutter Procedure This was a 2D Doppler, Color Flow transthoracic echocardiogram. Exam performed in department. Left Ventricle Normal LV size. Left ventricular systolic function is normal. The estimated ejection fraction is 55 %. No regional wall motion abnormalities noted. Right Ventricle Normal RV size. Normal systolic function. Atria Normal left atrium. Normal right atrium. Mitral Valve Normal mitral valve. Tricuspid Valve Normal tricuspid valve. Mild tricuspid valve insufficiency. Pulmonary artery systolic pressure is 22 mmHg. Aortic Valve Trisinus/trileaflet aortic valve. Pulmonic Valve Normal pulmonic valve. Great Vessels Normal aortic root. The pulmonary artery is normal size. Normal inferior vena cava. Pericardium/Pleural No pericardial effusion. MMode/2D Measurements & Calculations LVIDd: 4.5 cm IVSd: 0.89 cm Ao root diam: 3.3 cm LVIDs: 3.0 cm LVPWd: 1.0 cm RVDd: 3.1 cm FS: 32.1 % LAV(MOD-bp): 45.9 ml LVAd ap4: 15.9 cm2 SV(MOD-sp4): 20.4 ml LAV(MOD-bp) Indexed: 21.8 ml/m2 LVLd ap4: 6.0 cm LAV(MOD-sp2): 45.0 ml EDV(MOD-sp4): 34.3 ml LAV(MOD-sp4): 41.7 ml EDV(sp4-el): 35.7 ml LVAs ap4: 9.3 cm2 LVLs ap4: 5.3 cm ESV(MOD-sp4): 13.9 ml ESV(sp4-el): 13.8 ml EF(MOD-sp4): 59.6 % EF(sp4-el): 61.3 % SV(sp4-el): 21.9 ml LA A4 area: 17.3 cm2 LA dimension(2D): 4.5 cm RA A4 area: 12.3 cm2 TAPSE: 1.3 cm Doppler Measurements & Calculations MV E max han: 75.9 cm/sec Lat Peak E' Han: 10.0 cm/sec Med Peak E' Han: 10.4 cm/sec E/E' lat: 7.6 E/E' med: 7.3 Ao V2 max: 112.6 cm/sec LV V1 max: 80.4 cm/sec PA V2 max: 89.6 cm/sec Ao max P.1 mmHg LV V1 max P.6 mmHg Ao V2 mean: 87.8 cm/sec Ao mean P.3 mmHg Ao V2 VTI: 16.1 cm TR max han: 223.1 cm/sec TR max P.9 mmHg ECHO/Echo Complete Interpretation Summary Normal LV size. Left ventricular systolic function is normal. The estimated ejection fraction is 55 %. Structurally normal valves. Ordering Physician: Greyson Camacho Referring Physician: Darin Walton Performed By: Patti Messina, FELISA, RVT
== END | disposition home or self-care (01) ==
LOC: CVS 12:49
PROVIDERS: PCP Family Medicine; Referring Provider Internal Medicine Cardiovascular Disease; Visit Provider Internal Medicine Cardiovascular Disease
DX: I48.92 Unspecified atrial flutter (principal); R94.31 Abnormal electrocardiogram [ECG] [EKG]
CPT/HCPCS: 93306

== ENCOUNTER 2023-03-02 10:42 | Day surgery (SDC) | payer MEDICARE, OTHER, SELFPAY ==
[2023-02-14 10:33] LABS: Anion Gap 2 (5-15); BUN 13 mg/dL (7-18); BUN/Creat Ratio 11.9 RATIO (10-20); Calcium,Total 9.3 mg/dL (8.5-10.1); Chloride 105 mmol/L (98-107); Creatinine, Serum 1.09 mg/dL (0.70-1.30); EST Glomerular Filtration Rate 71 mL/min (>60); Est Glom Filt Rate - Afr Amer 86 mL/min (>60); Glucose 117 mg/dL (74-106); Potassium 4.1 mmol/L (3.5-5.1); Sodium Level 138 mmol/L (136-145)
--- NOTE | 2023-02-14 13:01 | HP.PCM_ITS ---
History and Physical Date of Admission: 03/02/23 This is a pleasant 67-year-old man who presents today for a cardioversion. He has no previous cardiac history other than hypertension who went for routine physical and an EKG was done in your office which demonstrated a narrow complex tachycardia with flutter waves consistent with atrial flutter at a rate of 140 bpm. He was placed on the beta-jesu as well as an anticoagulant and has tolerated this well. He apparently is quite active he denies any chest pain or shortness of breath or paroxysmal nocturnal dyspnea or pedal edema he has had no neck arm or jaw discomfort to suggest angina. He has been compliant with all his medications his most recent lipid profile demonstrated total cholesterol 162 HDL 59 LDL of 82. His EKG in the office demonstrated atrial flutter with a rate of 95 bpm and no acute changes his blood pressure is under good control. Intake Vital Signs See EMR Allergies See EMR Medications See EMR [facility] Medical History Atrial flutter Benign essential hypertension Tachycardia Surgical History Hx of prostatectomy Family History Father Heart disease Social History Smoking Status: Light Smoker (<10/day) alcohol intake: current alcohol intake frequency: 0-2 drinks per day ROS Const Const: Negative for fatigue, weakness, headache(s), daytime sleepiness or difficulty sleeping Eyes Eyes: Negative for change in vision ENT ENT: Negative for headache(s), dizziness or Nosebleed/epistaxis Cardio Chest Pain: No Palpitations: No Edema: None Resp Respiratory: Negative for SOB with activity, SOB at rest, SOB orthopnea\SOB lying down or Cough GI GI: Negative nausea, vomiting or heartburn Neuro Neuro: Negative for dizziness, lightheadedness, near syncope, headache(s) or weakness Endo Endo: Negative for fatigue Cardiology Exam Const Appearance: cooperative, healthy appearing, no acute distress, well developed and well groomed Nutritional Appearance: average body habitus and well nourished Orientation: alert, awake and oriented x3 Head Head: normal to inspection, normocephalic and atraumatic Ears: hearing grossly normal bilaterally and external ears normal Nose: external nose normal, nares normal, nasal mucous membranes and turbinates normal, septum normal and no nasal discharge Face and Sinus: face symmetric Mouth: oral mucosae normal, tongue normal, oropharynx normal and moist mucous membranes Teeth and gingiva: dentition normal Throat: posterior oropharynx normal, tonsils normal and uvula midline Eyes General: appearance normal, both eyes and all related structures Eyelids: eyelids normal Conjunctivae: conjunctivae normal Pupils: PERRL, normal by confrontation and accommodation normal EOM: EOM intact bilaterally Neck Neck: normal visual inspection, trachea midline and no JVD JVD: +5 Carotids: normal carotid upstroke and bounding pulses Chest Chest inspection: normal inspection of the chest, symmetric chest movement and normal respiratory effort Auscultation: Bilateral: Clear to Auscultation Cardio Palpation: normal PMI Rate: regular rate Rhythm: regular rhythm Heart sounds: S1 normal, S2 normal and normal, physiologic split S2; Negative rub, gallop or murmur GI GI: normal to inspection, soft, no hepatosplenomegaly and bowel sounds present Neuro General: patient alert, patient awake, patient oriented x3, gait normal, moves all extremities and no focal sensory deficit Skin Skin: no rashes or lesions noted Extremities Pulses: Normal: Right Femoral Pulse, Left Femoral Pulse, Right Dorsalis Pedis Pulse, Left Dorsalis Pedis Pulse, Right Posterior Tibial Pulse, Left Posterior Tibial Pulse, Right Radial Pulse and Left Radial Pulse Lower Extremity Edema: None: Bilateral Musculoskel Musculoskeletal: No joint tenderness Psych Psychological: normal affect Supplemental Info Supplemental Information Stress Test 02/23/07 Conclusion Exercise stress test with no EKG criteria for ischemia at a high workload. Nuclear images demonstrate no evidence of ischemia. CT Abdomen and Pelvis with Contrast 11/26/18 FINDINGS: There is moderate atherosclerotic calcification of the abdominal aorta and proximal iliac arteries, without a demonstrated aneurysm. Normal inferior vena cava. Normal retroperitoneum. Assessment and Plan Assessment and Plan (1) Atrial flutter: Status: Acute Plan: He does have a history of atrial flutter the duration of which is unclear at this time. His [id number] score is at least 2 and my recommendation at this time will be to continue with anticoagulation and attempt DC cardioversion. The risk benefits alternatives have been explained to him and his they understand and agree to proceed.
[2023-03-01 09:35] VITALS: BMI 30.1
--- NOTE | 2023-03-02 12:28 | PCM.OP.PRO ---
Procedure Report Date of Procedure: 03/02/23 DC cardioversion. 67-year-old man with a history of persistent atrial flutter is symptomatic. The patient has been on anticoagulation for at least 4 weeks. Patient presented to the cardiac catheterization lab in the postabsorptive nonsedated state. Informed consent was obtained. The patient was seen by the physician from the critical care division. Anterior-posterior pads were applied. The patient was then administered 100 mg of intravenous propofol. 200 J of synchronized DC cardioversion energy was applied with prompt reversal to sinus rhythm. Patient tolerated the procedure well. Conclusion: Successful DC cardioversion from atrial flutter to sinus rhythm. Continue as per protocol.
--- NOTE | 2023-03-02 12:51 | PCM.OP.PRO ---
Procedure Report Date of Procedure: 03/02/23 CONSCIOUS SEDATION REPORT BRIEF HISTORY OF PRESENT ILLNESS: The patient is a 67 year-old male who presented to [facility] for an elective outpatient cardioversion due to underlying atrial fibrillation. The patient reports no PO intake since midnight, but is currently therapeutic on anticoagulation. The patient does not have a history of obstructive sleep apnea. The patient reports smoking less than 10 cigarettes a day. He drinks at least 2 drinks daily. The patient denies any recent constitutional symptoms such as fevers, chills, nausea or vomiting. The patient denies previous applicable anesthetic complications. PHYSICAL EXAMINATION: VITAL SIGNS: Reviewed and were acceptable. GENERAL: The patient is a male, in no apparent distress, speaking in full sentences. HEENT: Normocephalic, atraumatic. Mucous membranes are moist and pink. Good mouth opening noted. Trachea is midline. Good neck mobility. MP [IV] CHEST: S1, S2 irregularly irregular. No murmurs, rubs or gallops were noted. LUNGS: Clear to auscultation bilaterally without appreciable wheezes, rales or rhonchi. ABDOMEN: Soft, nontender, nondistended. Positive bowel sounds. EXTREMITIES: There is no clubbing, cyanosis or edema. ASA Class: II DESCRIPTION OF PROCEDURE: After confirmation of informed consent, the patient's anesthesia plan was reviewed in detail. [Propofol] was chosen. Risks and benefits were reviewed and the patient agreed to proceed. At [12:18], the patient was given [40 mg of propofol]. [The patient required a total of 100 mg of propofol throughout the procedure to achieve appropriate sedation. The patient achieved an appropriate level of sedation and received [1] attempt[s] synchronized cardioversion, at [200 J respectively] by Dr. Camacho at the bedside. This was [successful] in achieving normal sinus rhythm. The patient was monitored until [12:32], at which time the patient reached their baseline mental status and function. The patient tolerated the procedure well. COMPLICATIONS: None ESTIMATED BLOOD LOSS: None RECOMMENDATIONS: Okay to recover in usual fashion. Procedures Pulmonary CF Procedures Pulmonary: 02126 Con Sedation
== END 2023-03-02 13:34 | disposition home or self-care (01) ==
LOC: CLSP 10:42
PROVIDERS: PCP Family Medicine; Referring Provider Internal Medicine Cardiovascular Disease; Visit Provider Internal Medicine Cardiovascular Disease
DX: I48.92 Unspecified atrial flutter (principal); I10 Essential (primary) hypertension; F17.200 Nicotine dependence, unspecified, uncomplicated; Z79.01 Long term (current) use of anticoagulants
CPT/HCPCS: 36415; 80048; 92960; 93005; J7040

== ENCOUNTER → 2023-04-11 | Outpatient (CLI) | payer MEDICARE, OTHER, SELFPAY ==
[2023-04-11 10:26] LABS: PSA,Total- Diagnostic 0.07 ng/mL (0.0-4.0)
== END | disposition home or self-care (01) ==
PROVIDERS: PCP Family Medicine; Referring Provider Nurse Practitioner; Visit Provider Nurse Practitioner
DX: C61 Malignant neoplasm of prostate (principal)
CPT/HCPCS: 36415; 84153

== ENCOUNTER → 2023-10-10 | Outpatient (CLI) | payer MEDICARE, OTHER, SELFPAY ==
[2023-10-10 12:25] LABS: PSA,Total- Diagnostic 0.07 ng/mL (0.0-4.0)
== END | disposition home or self-care (01) ==
LOC: LAB 09:49
PROVIDERS: PCP Family Medicine; Referring Provider Urology; Visit Provider Urology
DX: C61 Malignant neoplasm of prostate (principal)
CPT/HCPCS: 36415; 84153

== ENCOUNTER → 2024-04-15 | Outpatient (CLI) | payer MEDICARE, SELFPAY ==
[2024-04-15 11:44] LABS: PSA,Total- Diagnostic 0.11 ng/mL (0.0-4.0)
== END | disposition home or self-care (01) ==
LOC: LAB 10:30
PROVIDERS: PCP Family Medicine; Referring Provider Urology; Visit Provider Urology
DX: C61 Malignant neoplasm of prostate (principal)
CPT/HCPCS: 36415; 84153

== ENCOUNTER → 2024-09-19 | Outpatient (CLI) | payer MEDICARE, SELFPAY ==
[2024-09-19 13:25] LABS: Anion Gap 12 (5-15); BUN 16 mg/dL (4-19); BUN/Creat Ratio 15.4 RATIO (10-20); Calcium,Total 9.1 mg/dL (7.6-11.0); Carbon Dioxide 23.6 mmol/L (21.0-32.0); Chloride 101 mmol/L (98-108); Glucose 127 mg/dL (70-99); Potassium 3.9 mmol/L (3.3-5.1)
== END | disposition home or self-care (01) ==
LOC: LAB 12:03
PROVIDERS: PCP Family Medicine; Referring Provider Internal Medicine Cardiovascular Disease; Visit Provider Internal Medicine Cardiovascular Disease
DX: I48.92 Unspecified atrial flutter (principal)
CPT/HCPCS: 36415; 80048

== ENCOUNTER 2024-09-20 06:40 | Day surgery (SDC) | payer MEDICARE, SELFPAY ==
[2024-09-19 14:10] VITALS: BMI 30.3
--- OUTSIDE RECORDS SUMMARY | 2024-09-20 06:42 | XMS RPT_ITS | CCD ---
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 Diallo Walton Primary Care Provider [phone] Dr. Diallo Walton Referring Provider Dr. Greyson Camacho Attending Provider [phone] Greyson Camacho Referring Provider [phone] Greyson Camacho Other Provider Jaron SORENSON, RODRIGO Mosley Attending Provider Dr. Alan Simmons Attending Provider Unavailabl e Houston Conklin Referring Unavailable Rubin, Houston Jacobs Attending Unavailable Darin Walton Primary Care Unavailable RubinHouston Referring Unavailable Rubin, Houston Jacobs Attending Unavailable Darin Walton Primary Care Unavailable Juan Luis Messina NP Attending Unavailable Darin Walton Referring Unavailable Darin Walton Primary Care Unavailable Dr. Darin Walton MD Primary Care Provider Dr. Darin Walton MD Referring Provider Dr. Greyson Camacho MD Attending Provider [phone] Doug WEN, Dr. 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 atorvastatin 20 mg oral tablet (1 source) HMG-CoA Reductase Inhibitor Start: 08-04-2023 take 1 tablet by mouth once daily Atorvastatin 20 mg tablet Active 20 mg PO daily August 04, 2023 12:00am hydroCHLOROthiazide 12.5 mg / lisinopril 20 mg oral tablet (8 sources) Thiazide Diuretic, Angiotensin Converting Enzyme Inhibitor Start: 01-29-2019 Lisinopril-Hydroc hlorothiazide 1 EACH tablet Active 1 NMA PO DAILY January 29, 2019 1:00am Start: 01-29-2019 Lisinopril-Hyd rochlorothiazide Active 1 EACH PO DAILY January 29, 2019 12:00am metoprolol tartrate 25 mg oral tablet (15 sources) beta-Adrenergic Heather Start: 05-26-2023 End: 06-17-2024 take 1 tablet by mouth twice daily Metoprolol Tartrate 25 mg tablet Active 25 mg PO TWICE A DAY 180 3 June 17, 2024 3:20pm Start: 01-25-2023 End: 05-26-2023 Metoprolol Tartrate 50 mg ta blet Discontinued 25 mg PO TWICE A DAY 120 2 January 25, 2023 12:19pm May 26, 2023 9:43am Start: 01-25-2023 End: 01-25-2023 take 25 mg by mouth twice daily Metoprolol Tartrate Ac tive 25 MG PO TWICE A DAY 120 January 25, 2023 11:19am Start: 01-11-2023 End: 01-25-2023 take 1 tablet by mouth twice daily Metoprolol Tartrate 50 mg tablet Discontinued 50 mg PO TWICE A DAY January 11, 2023 1:00am January 25, 2023 11:38am Zqhjjtxf-Oem-Tm-Lycopen-Lute in (2 sources) Start: 01-29-2019 Rqjocvpx-Vvz-Nf-Lycopen-Lute in Active 1 EACH PO DAILY January 29, 2019 12:00am Start: 01-29-2019 Cbkufwvg-Csl-E z-Zeyrnyv-Hqllyu Active 1 EACH PO DAILY January 29, 2019 1:00am Completed/Discontinued Medications Medication Drug Class(es) Dates Sig (Normalized) Sig (Original) acetaminophen 325 mg / HYDROcodone bitartrate 5 mg oral tablet (8 sources) Opioid Agonist Start: 02-06-2019 End: 02-13-2019 Hydrocodone-Acetami nophen 1 EACH tablet Discontinued 1 NMA PO EVERY 4 HOURS NEEDED as needed for Pain Score 1-10 14 5 0 February 06, 2019 February 10, 2019 1:00am February 13, 2019 1:12am Malignant neoplasm of prostate Start: 02-06-2019 End: 02-13-2019 Hydrocodone-Acetaminophen Di scontinued 1 EACH PO EVERY 4 HOURS NEEDED 14 5 February 06, 2019 February 13, 2019 12:12am aspirin 81 mg delayed release oral tablet (8 sources) Platelet Aggregation Inhibitor, Nonsteroidal Anti-inflammatory Drug Start: 01-29-2019 End: 01-25-2023 take 1 tablet by mouth once daily Aspirin 81 MG tablet Discontinued 81 mg PO DAILY@0800 January 29, 2019 1:00am January 25, 2023 12:19pm ciprofloxacin 500 mg oral tablet (8 sources) Quinolone Antimicrobial Start: 02-06-2019 End: 01-11-2023 take 1 tablet by mouth twice daily Ciprofloxacin Hcl 500 MG tablet Discontinued 500 mg PO TWICE A DAY 14 0 February 06, 2019 1:00am January 11, 2023 11:19am docusate sodium 100 mg oral capsule (8 sources) Start: 02-06-2019 End: 01-25-2023 take 1 capsule by mouth twice daily Docusate Sodium 100 MG capsule Discontinued 100 mg PO TWICE A DAY 20 0 February 06, 2019 1:00am January 25, 2023 11:36am gabapentin 100 mg oral capsule (3 sources) Anti-epileptic Agent Start: 07-07-2016 GABAPENTIN 100 MG CAPS daily GABAPENTIN [id number] Gemma Brower lisinopril 20 mg oral tablet (3 sources) Angiotensin Converting Enzyme Inhibitor Start: 07-07-2016 LISINOPRIL 20 MG TABS daily LISINOPRIL [id number] Gemma Brower meloxicam 15 mg oral tablet (3 sources) Nonsteroidal Anti-inflammatory Drug Start: 07-07-2016 MOBIC 15 MG TABS MELOXICAM [id number] Gemma Brower Ew-Riu-Vabqm-K1-Ly copen-Lutein (5 sources) Start: 01-29-2019 End: 01-25-2023 Dr-Bhn-Ggdsr-K1-Ly copen-Lutein Discontinued 1 EACH PO DAILY January 29, 2019 12:00am January 25, 2023 10:37am Start: 01-29-2019 Nq-Nhw-Rriae-K 6-Dlvzgko-Ljlrix Active 1 EACH PO DAILY January 29, 2019 12:00am Start: 01-29-2019 Bg-Ote-Yngwl-K 4-Bsjlfre-Sitidb Active 1 EACH PO DAILY January 29, 2019 1:00am He-Xqt-Vidls-W9-Svmnvve-Hjfb in 1 EACH tablet (1 source) Start: 01-29-2019 End: 01-25-2023 take 1 tablet by mouth once daily Df-Ojc-Sxlen-P3-Uabfkca-Dgzfcv 1 EACH tablet Discontinued 1 NMA PO DAILY January 29, 2019 1:00am January 25, 2023 11:37am simvastatin 40 mg oral table t (11 sources) HMG- CoA Redu ctas e Inhi bito r Start: 01-29-2019 End: 08-04-2023 take 1 tablet by mouth at bedtime Simvastatin 40 MG tablet Discontinued 40 mg PO AT BEDTIME January 29, 2019 1:00am August 04, 2023 9:15am Start: 07-07-2016 SIMVASTATIN 10 MG TABS daily SIMVASTATIN [id number] Gemma Brower Problems Active Problems Problem Classification Problem Date Documented Date Episodic/Chronic Cancer of prostate (1 source) Malignant neoplasm of prostate; Translations: [Malignant neoplasm of prostate] Onset: 04-30-2024 Chronic Cardiac dysrhythmias (8 sources) Atrial flutter; Translations: [Unspecified atrial flutter] 01-11-2023 Chronic Cardiac dysrhythmias (4 sources) Tachycardia; Translations: [Tachycardia, unspecified] 01-11-2023 Episodic Disorders of lipid metabolism (3 sources) Hypercholesterolemia; Translations: [Disorder of bile acid and cholesterol metabolism, unspecified] Onset: 07-07-2016 07-07-2016 Chronic Essential hypertension (11 sources) Hypertensive disorder; Translations: [Benign essential hypertension] Onset: 07-07-2016 07-07-2016 Chronic Other screening for suspected conditions (not mental disorders or infectious disease) (4 sources) Electrocardiogram abnormal; Translations: [Abnormal electrocardiogram [ECG] [EKG]] 02-28-2023 Episodic Residual codes; unclassified (2 sources) History of cardioversion; Translations: [Personal history of other medical treatment] 03-09-2023 Episodic Past or Other Problems Problem Classification Problem Date Documented Da te Episodic/Chronic Other bone disease and musculoskeletal deformities (6 sources) Segmental and somatic dysfunction; Translations: [Segmental and somatic dysfunction of sacral region] Onset: 07-07-2016 07-07-2016 Episodic Spondylosis; intervertebral disc disorders; other back problems (2 sources) Lumbar radiculopathy; Translations: [Radiculopathy, lumbar region] Onset: 07-07-2016 07-07-2016 Episodic Results Test Name Value Interpretation Reference Range Facility PSA,Total- Diagnosticon 03-30 PSA, DIAGNOSTIC 0.11 ng/mL Normal 0.0-4.0 [facility] Comment on above: Result Comment: This test was performed using the TPSA assay method for the Dimension chemistry system. Values obtained with different assay methods cannot be used interchangably. When changing PSA assays in the course of monitoring a patient, additional sequential testing should be carried out to confirm baseline values. Performed By: #### L [id number] #### [facility] [address] [place], [place], [id number] PSA,Total- Diagnosticon 09-27 PSA, DIAGNOSTIC 0.07 ng/mL Normal 0.0-4.0 [facility] Comment on above: Result Comment: This test was performed using the TPSA assay method for the [employer] chemistry system. Values obtained with different assay methods cannot be used interchangably. When changing PSA assays in the course of monitoring a patient, additional sequential testing should be carried out to confirm baseline values. Performed By: #### L [id number] #### [facility] [address] [place], [place], [id number] Cardiology Visit Reporton Cardiology Visit Report [facility] [address] [place], [place] [address] OFFICE VISIT Date of Service: 08/04/23 MR#: [id number] Acct: [id number] Name: FERN TAPIA #: [id number] : 1955 Provider: RODRIGO walker Age/Sex: 67/M Location: [facility] [place] Status: Signed [facility] History of Present Illness Details: Pleasant 67-year-old man with no previous cardiac history other than hypertension who went for routine physical and an EKG was done in your office which demonstrated a narrow complex tachycardia with flutter waves consistent with atrial flutter at a rate of 140 bpm. He was placed on the beta- heather as well as an anticoagulant and has tolerated this well. He apparently is quite active he denies any chest pain or shortness of breath or paroxysmal nocturnal dyspnea or pedal edema he has had no neck arm or jaw discomfort to suggest angina. He has been compliant with all his medications his most recent lipid profile demonstrated total cholesterol 162 HDL 59 LDL of 82. He denies chest, arm, jaw, or neck discomfort. He denies palpitations. He denies bilateral lower extremity edema. He denies claudication. He denies shortness of breath with activity, shortness of breath at rest, orthopnea, or PND. He denies chronic cough. He denies significant, sudden weight gain. He denies lightheadedness, dizziness, near-syncope, or syncope. He denies blood in urine, blood in stool, or epistaxis. He denies fever with chills. He denies myalgia. He denies fatigue. His exercise level has remained stable. Intake Vital Signs 01/25/23 10:32 03/02/23 11:02 08/04/23 08:55 Height 5 ft 10.5 in 5 ft 10 in 5 ft 10 in Weight: 208 lb BMI 29.8 BP 133/83 H Blood Pressure Location Lt brachial Position Sitting Respiration 18 Pulse 57 L Pulse Source NIBP Intake Visit Reasons: 6 M FU Bridge Manager Required: No Accompanied by: None Is patient in pain?: No Allergies No Known Allergies Allergy (Verified 08/04/23 09:13) Medications ???Medication ???Instructions ???Recorded ???Confirmed ???Type lisinopril 20 1 ea PO DAILY 01/29/19 08/04/23 History mg-hydrochlorothiaz sabra 12.5 mg tablet metoprolol tartrate 25 mg tablet 25 mg PO BID #180 tabs 05/26/23 08/04/23 Rx apixaban 5 mg tablet (Eliquis) 5 mg PO BID 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 #360 05/29/23 08/04/23 Rx tabs atorvastatin 20 mg tablet 20 mg PO QDAY 08/04/23 08/04/23 History Ejection fraction %: 55 [facility] Medical History History of cardioversion Atrial flutter Tachycardia Benign essential hypertension Surgical History Hx of prostatectomy Family History Father Heart disease Social History (Updated 08/04/23 @ 09:16 by Shereen Aragon) Smoking Status: Former smoker how long ago did patient quit smokin year ago alcohol intake: current alcohol intake frequency: 0-2 drinks per day substance use type: does not use caffeine: Yes Type: coffee Number of servings: 1 ROS Const Const: Negative for fatigue, weakness, headache(s), frequent falls, difficulty sleeping or excessive sweating Eyes Eyes: Negative for loss of peripheral vision, transient loss of vision, blurry vision, double vision or tunnel vision ENT ENT: Negative for headache(s), dizziness, Nosebleed/epistaxis or balance problems Cardio Chest Pain: No Palpitations: No Edema: None Muscle aches with walking: None Resp Respiratory: Negative for SOB with activity, SOB at rest, SOB orthopnea SOB lying down, Cough or paroxysmal nocturnal dyspnea GI GI: Negative nausea, vomiting, heartburn or black,tarry stools : Negative for hematuria Musc Musc: Negative for muscle aches/ myalgia, muscle weakness, joint pain or balance problems Skin Skin: Negative non-healing lesions, rash or unusual bruising Neuro Neuro: Negative for dizziness, lightheadedness, near syncope, syncope, frequent falls, headache(s), weakness, blurry vision, double vision or lack of coordination Sandro Hematologic/Lymphat ic: Negative for easy bleeding or easy bruising Endo Endo: Negative for fatigue, excessive sweating or increased thirst/drinking Psych Psych: Negative for anxiety or depression Allergy Allergy/Immunology: Negative for hives and Negative for rash Cardiology Exam Const Appearance: cooperative, healthy appearing, comfortable and no acute distress Nutritional Appearance: average body habitus and well nourished Orientation: alert, awake and oriented x3 Head Head: normal to inspection Ears: hearing grossly normal bilaterally Nose: external nose normal Face and Sinus: face symmetric Mouth: moist mucous membranes Eyes General: appearance normal, both eyes and all relate (more content not included)... Normal [facility] Basophil percentageOrdered B y: Janet Francisco on 04-11-2023 Basophil percentage 0.07 ng/mL 0.0-4.0 [facility] Comment on above: This test was perfor med using the TPSA assay method for the[employer] chemistry system. Values obtained with differentassay methods cannot be used interchangably.When changing PSA assays in the course of monitoring apatient, additional sequential testing should be carriedout to confirm baseline values. Basophil percentageOrdered B y: Greyson Camacho on 02-14-2023 Chloride [Moles/Vol] 105 mmol/L 98-107 [facility] Glucose [Mass/Vol] 117 mg/dL 74-106 [facility] Comment on above: Fasting Glucose resu lt from 100 to 125 mg/dL suggests IMPAIRED HOMEOSTASIS per A.D.A. criteria. Potassium [Moles/Vol] 4.1 mmol/L 3.5-5.1 [facility] Sodium [Moles/Vol] 138 mmol/L 136-145 [facility] Laboratory - Chemistry and C hemistry - challengeOrdered By: Greyson Camacho on 02-14-2023 CO2 [Moles/Vol] 31.0 mmol/L 21.0-32.0 [facility] Urea nitrogen/Creatinine [Mass ratio] 11.9 mg/mg 10-20 [facility] No Panel InformationOrdered By: Greyson Camacho on 02-14-2023 Estimated GFR (MDRD) Amer 86 mL/min >60 [facility] Comment on above: GFR Calc Estimated GFR (MDRD) Non-Af Amer 71 mL/min >60 [facility] Comment on above: Non- GFR Calc Serum or plasma calcium kristen urement (mass/volume)Ordered By: Greyson Camacho on 02-14-2023 Calcium [Mass/Vol] 9.3 mg/dL 8.5-10.1 [facility] Serum or plasma creatinine m easurement (mass/volume)Ordered By: [place] [facility] on 02-14-2023 Creatinine [Mass/Vol] 1.09 mg/dL 0.70-1.30 [facility] Comment on above: The validity of the calculated GFR & GFRAA in patients over 70 years has not been determined. Clinical correlation is essential. Serum or plasma urea nitroge n measurement (mass/volume)Ordered By: [facility] on 02-14-2023 Urea nitrogen [Mass/Vol] 13 mg/dL 7-18 [facility] Thin prep Papanicolaou smear with manual screeningOrdered By: Greyson [facility] on 02-14-2023 Thin prep Papanicolaou smear with manual screening 2 5-15 [facility] Basophil percentageOrdered B y: Diallo Walton on 12-29-2022 Bilirubin [Mass/Vol] 1.00 mg/dL 0.20-1.00 [facility] Comment on above: For patients on eltr ombopag therapy, use of Dimension [place] TBIL is not recommended. Chloride [Moles/Vol] 107 mmol/L 98-107 [facility] Cholesterol [Mass/Vol] 162 mg/dL <200 [facility] Comment on above: <200 mg/dL Desirable 200-240 mg/dL Borderline >240 mg/dL High Risk Glucose [Mass/Vol] 93 mg/dL 74-106 [facility] Potassium [Moles/Vol] 3.8 mmol/L 3.5-5.1 [facility] Protein [Mass/Vol] 7.0 g/dL 6.4-8.2 [facility] Sodium [Moles/Vol] 140 mmol/L 136-145 [facility] Triglyceride [Mass/Vol] 105 mg/dL <199 [facility] Comment on above: The drugs N-Acetylcy steine and Metamizole may falsely depress this assay.Serum Triglycerides Reference Interval Normal <150 mg/dL Borderline high 150 - 199 mg/dL High 200 - 499 mg/dL Very High > or = 500 mg/dL Laboratory - Chemistry and C hemistry - challengeOrdered By: Diallo Walton on 12-29-2022 ALP [Catalytic activity/Vol] 62 U/L 45-117 [facility] ALT [Catalytic activity/Vol] 31 U/L 16-61 [facility] CO2 [Moles/Vol] 25.0 mmol/L 21.0-32.0 [facility] Globulin (S) [Mass/Vol] 3.1 g/dL 2.2-4.2 [facility] Magnesium [Mass/Vol] 2.4 mg/dL 1.6-2.6 [facility] Urea nitrogen/Creatinine [Mass ratio] 13.3 mg/mg 10-20 [facility] No Panel InformationOrdered By: Diallo Walton on 12-29-2022 Estimated GFR (MDRD) Amer 90 mL/min >60 [facility] Comment on above: GFR Calc Estimated GFR (MDRD) Non-Af Amer 74 mL/min >60 [facility] Comment on above: Non- GFR Calc Thyroid Stimulating Hormone (TSH) 2.51 uIU/mL 0.358-3.74 [facility] Serum or plasma albumin kristen urement (mass/volume)Ordered By: Diallo Walton on 12-29-2022 Albumin [Mass/Vol] 3.9 g/dL 3.2-5.0 [facility] Serum or plasma albumin/glob ulin mass ratioOrdered By: Diallo Walton on 12-29-2022 Albumin/Globulin [Mass ratio] 1.3 {ratio} 0.9-2.4 [facility] Serum or plasma calcium kristen urement (mass/volume)Ordered By: Diallo Walton on 12-29-2022 Calcium [Mass/Vol] 8.9 mg/dL 8.5-10.1 [facility] Serum or plasma cholesterol in HDL measurement (mass/volume)Ordered By: Diallo Walton on 12-29-2022 Cholesterol in HDL [Mass/Vol] 59 mg/dL >40 [facility] Comment on above: The drugs N-Acetylcy steine and Metamizole may falsely depress this assay. Reference Range HDL <40 mg/dL Low HDL Cholesterol HDL >or= 60 mg/dL High HDL Cholesterol Serum or plasma cholesterol in VLDL measurement (mass/volume)Ordered By: Diallo Walton on 12-29-2022 Cholesterol in VLDL [Mass/Vol] 21 mg/dL 5-40 [facility] Serum or plasma creatinine m easurement (mass/volume)Ordered By: Diallo Walton on 12-29-2022 Creatinine [Mass/Vol] 1.05 mg/dL 0.70-1.30 [facility] Comment on above: The validity of the calculated GFR & GFRAA in patients over 70 years has not been determined. Clinical correlation is essential. Serum or plasma low density lipoprotein (LDL) cholesterol measurement (mass/volume)Ordered By: Diallo Walton on 12-29-2022 Cholesterol in LDL [Mass/Vol] 82 mg/dL 0-130 [facility] Serum or plasma urea nitroge n measurement (mass/volume)Ordered By: Diallo Walton on 12-29-2022 Urea nitrogen [Mass/Vol] 14 mg/dL 7-18 [facility] Thin prep Papanicolaou smear with manual screeningOrdered By: Diallo Walton on 12-29-2022 Thin prep Papanicolaou smear with manual screening 14 U/L 15-37 [facility] Thin prep Papanicolaou smear with manual screening 8 5-15 [facility] No Panel InformationOrdered By: Houston Conklin on 09-08-2022 Prostate Specific Antigen Total 0.12 ng/mL 0.0-4.0 [facility] Comment on above: This test was perfor med using the TPSA assay method for theDimension chemistry system. Values obtained with differentassay methods cannot be used interchangably.When changing PSA assays in the course of monitoring apatient, additional sequential testing should be carriedout to confirm baseline values. No Panel InformationOrdered By: Dr. Conklin on 03-04-2022 Prostate Specific Antigen Total 0.08 ng/mL 0.0-4.0 [facility] Comment on above: This test was perfor med using the TPSA assay method for theDimension chemistry system. Values obtained with differentassay methods cannot be used interchangably.When changing PSA assays in the course of monitoring apatient, additional sequential testing should be carriedout to confirm baseline values. No Panel Informationon 08-17 Prostate Specific Antigen Total 0.08 ng/mL 0.0-4.0 [facility] Work Phone: Comment on above: This test was perfor med using the TPSA assay method for theDimension chemistry system. Values obtained with differentassay methods cannot be used interchangably.When changing PSA assays in the course of monitoring apatient, additional sequential testing should be carriedout to confirm baseline values. CURlevi 02-16-2019 [facility] [place] MICRO - Microbiology PROCEDURE: Urine Culture [*1] SOURCE: Urine, Clean Catch BODY SITE: COLLECTED DATE/TIME: 02/14/2019 14:54 EST RECEIVED DATE/TIME: 02/14/2019 20:12 EST START DATE/TIME: 02/14/2019 20:12 EST FREE TEXT SOURCE: FINAL REPORTS Final Report [] Verified Date/Time/Personnel : 02/16/2019 07:36 EST No growth at 48 hours. PRELIMINARY REPORTS Preliminary Report [] Verified Date/Time/Personnel : 02/15/2019 08:57 EST No growth to date Performing Locations *1: This test was performed at: [address], [address] [place] [address] ([place]) Comment on above: Performed By: #### C UR #### [address] [address] .Auto Diffon 02-14-2019 Ammonia (P) [Mass/Vol] 0.70 10 3/mcL Normal 0.15-1.00 [facility] ([place]) Comment on above: Performed By: #### C ADRIANE WILSON ANEU #### [address] [address] #### BMP, GFR #### [address] [address] Basophils (Bld) [#/Vol] 0.00 10 3/mcL Normal 0.00-0.19 [facility] ([place]) Comment on above: Performed By: #### C BCADRIANE ANEU #### [address] [address] #### BMP, GFR #### [address] [address] Basophils/100 WBC (Bld) 0.3 % Normal 0.0-2.5 [facility] ([place]) Comment on above: Performed By: #### C BC, ADIFF, ANEU #### [address] [address] #### BMP, GFR #### [address] [address] Eosinophils (Bld) [#/Vol] 0.10 10 3/mcL Normal 0.00-0.40 [facility] ([place] Comment on above: Performed By: #### C BC, ADIFF, ANEU #### [place] [address] #### BMP, GFR #### [address] [address] Eosinophils/100 WBC (Bld) 0.4 % Normal 0.0-7.0 [facility] ([place] Comment on above: Performed By: #### C BC, ADIFF, ANEU #### [place] [address] #### BMP, GFR #### [address] [address] Lymphocytes (Bld) [#/Vol] 0.60 10 3/mcL Low 0.77-3.85 [facility] ([place] Comment on above: Performed By: #### C BC, ADIFF, ANEU #### [place] [address] #### BMP, GFR #### [address] [address] Lymphocytes/100 WBC (Bld) 4.7 % Low 10.0-50.0 [facility] ([place] Comment on above: Performed By: #### C BC, ADIFF, ANEU #### [place] [address] #### BMP, GFR #### [address] [address] Monocytes/100 WBC (Bld) 5.5 % Normal 1.7-13.0 [facility] ([place] Comment on above: Performed By: #### C BC, ADIFF, ANEU #### [place] [address] [place], [place] [address] #### BMP, GFR #### [address] [address] Neutrophils/100 WBC (Bld) 89.1 % High 37.0-80.0 [facility] ([place] Comment on above: Performed By: #### C BC, ADIFF, ANEU #### [address] [address] #### BMP, GFR #### [address] [address] .GFRon 02-14-2019 GFR 81 ml/min/1.73sqm Normal [facility] ([place] Comment on above: Result Comment: GFR Population mean for , Non- Americans Ages 20-29 = 116 mL/min/1.73 sq.m. Ages 30-39 = 107 mL/min/1.73 sq.m. Ages 40-49 = 99 mL/min/1.73 sq.m. Ages 50-59 = 93 mL/min/1.73 sq.m. Ages 60-69 = 85 mL/min/1.73 sq.m. Ages 70+ = 75 mL/min/1.73 sq.m. Chronic Kidney Disease: Less than 60 mL/min/1.73 square meters End Stage Renal Disease: Less than 15 mL/min/1.73 square meters Performed By: #### C BC, ADIFF, ANEU #### [address] [address] #### BMP, GFR #### [address] [address] GFR Non- 66 ml/min/1.73sqm Normal [facility] ([place]) Comment on above: Result Comment: GFR Population mean for , Non- Americans Ages 20-29 = 116 mL/min/1.73 sq.m. Ages 30-39 = 107 mL/min/1.73 sq.m. Ages 40-49 = 99 mL/min/1.73 sq.m. Ages 50-59 = 93 mL/min/1.73 sq.m. Ages 60-69 = 85 mL/min/1.73 sq.m. Ages 70+ = 75 mL/min/1.73 sq.m. Chronic Kidney Disease: Less than 60 mL/min/1.73 square meters End Stage Renal Disease: Less than 15 mL/min/1.73 square meters Performed By: #### C BCADRIANE, ANEU #### [place] [address] #### BMP, GFR #### [place] [address] .NEUABSon 02-14-2019 Neutrophils (Bld) [#/Vol] 12.10 10 3/mcL High 2.85-6.16 [facility] [place] Comment on above: Performed By: #### C ADRIANE WILSON, ANEU #### [place] [address] #### BMP, GFR #### [place] [address] .Urinalysis Microscopic (AO) on 02-14-2019 RBC (U) [#/Vol] 0-5 None [facility]en [facility] ([place]) Comment on above: Performed By: #### U A, UAMICAO #### [place] [address] UA Bacteria Trace [facility] ([place]) Comment on above: Performed By: #### U A, UAMICAO #### [place] [address] UA Fine Granular Casts 0-5 [facility] ([place]) Comment on above: Performed By: #### U A, UAMICAO #### [place] [address] UA Mucous 1+ /hpf Normal [facility] ([place]) Comment on above: Performed By: #### U A, UAMICAO #### [place] [address] UA Squam Epithelial 0-5 None Seen [facility] ([place]) Comment on above: Performed By: #### U A, UAMICAO #### [place] [id number] UA WBC 0-5 None Seen [facility] [place] Comment on above: Performed By: #### U A, UAMICAO #### [address] [address] UA Yeast Trace [facility] ([place] Comment on above: Performed By: #### U A, UAMICAO #### [address] [address] BMPon 02-14-2019 Calcium [Mass/Vol] 8.3 mg/dL Low 8.4-10.2 [facility] ([place]) Comment on above: Performed By: #### C BC, ADIFF, ANEU #### [address] [address] #### BMP, GFR #### [address] [address] Chloride [Moles/Vol] 103 mmol/L Normal 98-107 [facility] ([place]) Comment on above: Performed By: #### C BC, ADIFF, ANEU #### [address] [address] #### BMP, GFR #### [place] [address] CO2 [Moles/Vol] 25 mmol/L Normal 23-31 [facility] ([place]) Comment on above: Performed By: #### C BC, ADIFF, ANEU #### [address] [address] #### BMP, GFR #### [address] [address] Creatinine [Mass/Vol] 1.11 mg/dL Normal 0.70-1.30 [facility] ([place]) Comment on above: Performed By: #### C BC, ADIFF, ANEU #### [address] [address] #### BMP, GFR #### [address] [address] Electrolyte Balance 13.0 mEq/L Normal [facility] ([place]) Comment on above: Performed By: #### C BC, ADIFF, ANEU #### [address] [address] #### BMP, GFR #### [address] [address] Glucose [Mass/Vol] 142 mg/dL High 80-115 [facility] ([place]) Comment on above: Performed By: #### C BC, ADIFF, ANEU #### [address] [address] #### BMP, GFR #### [address] [address] Potassium [Moles/Vol] 3.9 mmol/L Normal 3.5-5.1 [facility] ([place]) Comment on above: Performed By: #### C BC, ADIFF, ANEU #### [address] [address] #### BMP, GFR #### [address] [address] Sodium [Moles/Vol] 141 mmol/L Normal 136-145 [facility] ([place]) Comment on above: Performed By: #### C BC, ADIFF, ANEU #### [address] [address] #### BMP, GFR #### [address] [address] Urea nitrogen [Mass/Vol] 16 mg/dL Normal 7-18 [facility] [place] Comment on above: Performed By: #### C BC, ADIFF, ANEU #### [address] [address] #### BMP, GFR #### [address] [address] Urea nitrogen/Creatinine [Mass ratio] 14 ratio Normal 7-27 [facility] ([place] Comment on above: Performed By: #### C BC, ADIFF, ANEU #### [address] [address] #### BMP, GFR #### [address] [address] CBCon 02-14-2019 Erythrocyte distribution width (RBC) [Ratio] 13.8 % Normal 11.5-14.5 [facility] ([place]) Comment on above: Performed By: #### C LEE ANN WILSONIFF, ANEU #### [address] [address] #### BMP, GFR #### [place] [address] Hematocrit (Bld) [Volume fraction] 27.6 % Low 42.0-52.0 [facility] ([place] Comment on above: Performed By: #### C ADRIANE WILSON, ANEU #### [address] [address] #### BMP, GFR #### [place] [address] Hemoglobin (Bld) [Mass/Vol] 9.2 G/dL Low 14.0-18.0 [facility] ([place] Comment on above: Performed By: #### C LEE ANN WILSONIFF, ANEU #### [address] [address] #### BMP, GFR #### [place] [address] MCH (RBC) [Entitic mass] 30.8 pg Normal 27.0-31.2 [facility] ([place] Comment on above: Performed By: #### C ADRIANE WILSON, ANEU #### [place] [address] #### BMP, GFR #### [place] [address] MCHC (RBC) [Mass/Vol] 33.5 G/dL Normal 31.8-35.4 [facility] ([place]) Comment on above: Performed By: #### C STEVE, ADIFF, ANEU #### [address] [address] #### BMP, GFR #### [place] [address] MCV (RBC) [Entitic vol] 92.1 fL Normal 80.0-94.0 [facility] ([place]) Comment on above: Performed By: #### C BC, ADIFF, ANEU #### [address] [address] #### BMP, GFR #### [address] [address] Platelet mean volume (Bld) [Entitic vol] 7.6 fL Normal 7.4-10.4 [facility] ([place]) Comment on above: Performed By: #### C BC, ADIFF, ANEU #### [place] [address] #### BMP, GFR #### [address] [address] Platelets (Bld) [#/Vol] 509 10 3/mcL High 130-400 [facility] ([place] Comment on above: Performed By: #### C BC, ADIFF, ANEU #### [place] [address] #### BMP, GFR #### [address] [address] RBC (Bld) [#/Vol] 3.00 10 6/mcL Low 4.04-6.13 [facility] ([place]) Comment on above: Performed By: #### C BC, ADIFF, ANEU #### [place] [address] #### BMP, GFR #### [address] [address] WBC (Bld) [#/Vol] 13.50 10 3/mcL High 4.60-10.80 [facility] ([place]) Comment on above: Performed By: #### C BC, ADIFF, ANEU #### [place] [address] #### BMP, GFR #### [address] [address] [address] ABDOMEN/PELVIS W/O CONTRA Callie 02-14-2019 CT ABDOMEN/PELVIS W/O CONTRAST ORIGINAL CT ABDOMEN/PELVIS W/O CONTRAST CLINICAL STATEMENT: BILATERAL flank pain. Suprapubic pain with abdominal distention. Unable to empty bladder after Singh removal today. Prostate cancer status post radical prostatectomy 02/07/2019. No fever, nausea, or vomiting. COMPARISON: None TECHNIQUE: Exam was performed without administration of contrast. Axial images were obtained from the lung bases through the pubic symphysis. Coronal and sagittal reformatted images were generated from the axial dataset. This exam was performed according to our departmental dose optimization program, and includes the following measures where applicable: automated exposure control, adjustment of the mAs and/or kVp according to patient size and/or exam, and an iterative reconstruction algorithm. FINDINGS: There are minor degenerative changes noted in the spine. Small scattered areas of pleural thickening are present at the lung bases. The liver, spleen, adrenal glands and pancreas are normal. There is a small LEFT upper quadrant splenule present. The kidneys appear normal. There is a Singh catheter within the urinary bladder. There is prominent hyperdensity identified at the region of the prostate bed, and there is also some bilateral pelvic extraperitoneal heterogeneous density present extending to the lower pelvis. These findings are compatible with regions of hemorrhage. Just above the prostate bed, this measures 5.7 x 3 cm. At the RIGHT pelvic extraperitoneal space, blood measures 3.2 x 5.5 cm. There is a small amount of air extending into a RIGHT inguinal hernia, and there is also extraluminal gas at the RIGHT lateral flank. This appears to be extraperitoneal. No colonic abnormality is evident. There is mild small bowel distention, suggesting a mildly dynamic ileus. No additional contributory abnormality is identified. IMPRESSION: 1. The study is positive for areas of hemorrhage at the prostate, lower central pelvis and bilateral pelvic extraperitoneal space RIGHT greater than LEFT. 2. Small amount of extraperitoneal air at the RIGHT flank and the RIGHT inguinal region presumably from recent previous procedure. 3. Mild small bowel ileus. Interpreted By: Hitesh Lewis MD Preliminary Report By: Goldy Anderson MD Electronically Signed By: Hitesh Lewis MD Dictated Date: 02/14/2019 3:08:20 PM Prelim Date: 02/14/2019 3:22:59 PM Sign Date: 02/14/2019 3:40:00 PM Ordering Provider:Gopal King Normal [facility] ([place]) UAon 02-14-2019 Color (U) Yellow Normal [facility] ([place]) Comment on above: Performed By: #### U A, UAMICAO #### [place] [address] Glucose (U) [Mass/Vol] Negative Normal Negative [facility] ([place]) Comment on above: Performed By: #### U A, UAMICAO #### [place] [address] Ketones Ql (U) Negative [facility] Comment on above: Performed By: #### U A, UAMICAO #### [place] [address] UA Appear Clear Normal Clear [facility] ([place] Comment on above: Performed By: #### U A, UAMICAO #### [place] [address] UA Blood Moderate Negative [facility] ([place] Comment on above: Performed By: #### U A, UAMICAO #### [place] [address] UA Leuk Est Negative Normal Negative [facility] ([place]) Comment on above: Performed By: #### U A, UAMICAO #### [place] [address] UA Nitrite Negative Normal Negative [facility] ([place]) Comment on above: Performed By: #### U A, UAMICAO #### [place] [address] UA pH 6.0 Normal 5.0 - 8.0 [facility] ([place] Comment on above: Performed By: #### U A, UAMICAO #### [place] [id number] UA Protein Negative Normal Negative [facility] ([place] Comment on above: Performed By: #### U A, UAMICAO #### [place] [id number] UA Spec Grav 1.020 Normal 1.015-1.025 [facility] ([place]) Comment on above: Performed By: #### U A, UAMICAO #### [facility] [address] [place] [address] UA Specimen Type Catheter Normal [facility] ([place]) Comment on above: Performed By: #### U A, UAMICAO #### [facility] [address] [place] [address] UA Urobilinogen 1.0 E.U./dL Normal 0.2-1.0 [facility] ([place]) Comment on above: Performed By: #### U A, UAMICAO #### [facility] [address] [place] [address] Urobilinogen Qn (U) Negative Normal Negative [facility] ([place]) Comment on above: Performed By: #### U A, UAMICAO #### [address] [address] Office Visit: Spine Visit- N EWon 07-07-2016 Alcoholism counseling (procedure) no Invalid Interpretation Code [facility] Work Phone: Dietary management education, guidance, and counseling (procedure) yes Invalid Interpretation Code [facility] Work Phone: Documentation of current medications (procedure) Done Invalid Interpretation Code [facility] Work Phone: Smoking cessation education (procedure) yes Invalid Interpretation Code [facility] Work Phone: Tobacco smoking status NHIS Never Invalid Interpretation Code [facility] Work Phone: Tobacco use [facility] Current every day smoker Invalid Interpretation Code [facility] Work Phone: Vital Signs Date Time Vital Sign Value Performing Clinician Tejali mo 09-19-2024 11:19-0400 Body height 177.[address] Darin Walton MD Work Phone: [facility] 09-19-2024 11:19-0400 Body mass index (BMI) [Ratio] 30.4 kg/m2 Dr. Darin Walton MD Work Phone: [facility] 09-19-2024 11:19-0400 Body weight 96.[address] Darin Walton MD Work Phone: [facility] 09-19-2024 11:19-0400 Diastolic blood pressure 82 mm[Hg] Dr. Darin Walton MD Work Phone: 8(700)835-304158 [place] [address] 09-19-2024 11:19-0400 Heart rate 142 /min Dr. Darin Walton MD Work Phone: 3(933)046-074458 [place] [address] 09-19-2024 11:19-0400 Respiratory rate 16 /min Dr. Darin Walton MD Work Phone: 0(940)400-080046 [address] 09-19-2024 11:19-0400 Systolic blood pressure 120 mm[Hg] Dr. Darin Walton MD Work Phone: 5(497)119-204365 [place] [address] 03-02-2023 11:02-0500 Body height 177.[address] Diallo Walton Work Phone: 6(285)081-919158 [place] [address] 03-02-2023 11:02-0500 Body weight 95.[address] Diallo Walton Work Phone: 9(917)629-227646 [address] 03-01-2023 09:35-0500 Body mass index (BMI) [Ratio] 30.1 kg/m2 Dr. Diallo Walton Work Phone: 1(784)957-999458 [place] [address] 01-25-2023 10:32-0500 Body mass index (BMI) [Ratio] 29.7 kg/m2 Dr. Diallo Walton Work Phone: 8(592)734-027858 [place] [address] 01-25-2023 10:32-0500 Body weight 95.[address] Diallo Walton Work Phone: 4(898)941-095058 [place] [address] 01-25-2023 10:32-0500 Diastolic blood pressure 93 mm[Hg] Dr. Diallo Walton Work Phone: 0(748)928-053558 [place] [address] 01-25-2023 10:32-0500 Heart rate 71 /min Dr. Diallo Walton Work Phone: 2(455)707-137458 [place] [address] 01-25-2023 10:32-0500 Respiratory rate 14 /min Dr. Diallo Walton Work Phone: [facility] 01-25-2023 10:32-0500 Systolic blood pressure 133 mm[Hg] Dr. Diallo Walton Work Phone: [facility] 07-07-2016 10:32-0400 BMI (Body Mass Index) 29.53 kg/m2 [facility] Work Phone: 07-07-2016 10:32-0400 BP Diastolic 56 mm[Hg] [facility] Work Phone: 07-07-2016 10:32-0400 BP Systolic 145 mm[Hg] [facility] Work Phone: 07-07-2016 10:32-0400 Height 175.26 cm [facility] Work Phone: 07-07-2016 10:32-0400 Weight 90.72 kg [facility] Work Phone: Encounters Encounter Date Encounter Type Care Provider Facility Start: 09-19-2024 End: 09-19-[address] Darin Walton MD Work Phone: -[facility] Start: 09-19-2024 End: 09-19-[address] Greyson Camacho MD -[facility] Work Phone: Start: 04-15-2024 End: 04-15-2024 ambulatory [place] Conklin Facility:[facility] Start: 10-10-2023 End: 10-10-2023 ambulatory [place] Conklin Facility:[facility] Start: 08-04-2023 End: 08-04-2023 ambulatory Juan Luis Messina NP Facility[facility] Start: 04-11-2023 End: 04-11-[address] Diallo Walton Work Phone: [facility] Work Phone: Start: 04-11-2023 End: 04-11-[address] Diallo Walton Work Phone: [facility] Work Phone: Start: 03-09-2023 End: 03-09-[address] Diallo Walton Work Phone: [facility] Work Phone: Start: 03-02-2023 Non-patient / Non-visit Dr. Diallo Walton Work Phone: [facility] Start: 03-02-2023 End: 03-02-2023 Admission to same day surgery center Dr. Diallo Walton Work Phone: [facility]Intake Rn/Special Procedures Work Phone: Start: 03-02-2023 End: 03-02-[address] Diallo Walton Work Phone: [facility] Work Phone: Start: 03-01-2023 Non-patient / Non-visit Dr. Diallo Walton Work Phone: [facility] Work Phone: Start: 03-01-2023 Non-patient / Non-visit Dr. Diallo Walton Work Phone: [facility] Start: 03-01-2023 End: 03-01-[address] Diallo Walton Work Phone: [facility] Work Phone: Start: 03-01-2023 End: 03-01-[address] Diallo Walton Work Phone: [facility] Work Phone: Start: 02-14-2023 Non-patient / Non-visit Dr. Diallo Walton Work Phone: [facility] Start: 01-25-2023 End: 01-25-[address] Diallo Walton Work Phone: [facility] Work Phone: Start: 12-29-2022 End: 12-29-2022 ambulatory [facility] Work Phone: Start: 12-29-2022 End: 12-29-2022 Patient encounter procedure [facility] Start: 09-08-2022 End: 09-08-2022 ambulatory [facility] Work Phone: Start: 09-08-2022 End: 09-08-2022 Patient encounter procedure [facility] Work Phone: Start: 03-04-2022 End: 03-04-2022 ambulatory [facility] Work Phone: Start: 03-04-2022 End: 03-04-2022 Patient encounter procedure [facility] Start: 08-17-2021 End: 08-17-2021 Patient encounter procedure [facility] Procedures Date Procedure Procedure Detail Performing Clinician Start: 07-07-2016 End: 07-07-2016 Chiropractic manipulation Jahaira Hutchins Dossi DC Work Phone: Start: 07-07-2016 End: 07-07-2016 Electric stimulation therapy Jahaira Hutchins Dossi DC Work Phone: Start: 07-07-2016 End: 07-07-2016 Mechanical traction therapy Jahaira Hutchins Dossi DC Work Phone: Start: 07-07-2016 End: 07-07-2016 X-ray exam of lower spine Jahaira Hutchins Dossi DC Work Phone: Plan of Treatment Date Care Activity Detail Author Start: 09-19-2024 Basic metabolic 2008 panel with ionized calcium - Serum or Plasma [facility] Start: 09-19-2024 Evaluation of diagno stic study results [facility] Start: 03-02-2023 Patient discharge [facility] Start: 07-21-2016 End: 07-21-2016 Appointment Appointment [facility] Work Phone: Start: 07-19-2016 End: 07-19-2016 Appointment Appointment [facility] Work Phone: Start: 07-18-2016 End: 07-18-2016 Appointment Appointment [facility] Work Phone: Start: 07-14-2016 End: 07-14-2016 Appointment Appointment [facility] Work Phone: Start: 07-13-2016 End: 07-13-2016 Appointment Appointment [facility] Work Phone: Start: 07-12-2016 End: 07-12-2016 Appointment Appointment [facility] Work Phone: Start: 07-11-2016 End: 07-11-2016 Appointment Appointment [facility] Work Phone: Start: 07-07-2016 End: 07-07-2016 Appointment Appointment [facility] Work Phone: Anion gap in Serum or Plasma [facility] BUN/Creatinine ratio [facility] Calcium [Mass/volume ] in Serum or Plasma [facility] Carbon dioxide, tota l [Moles/volume] in Central venous blood [facility] Cardioversion [facility] Cardioversion [facility] Creatinine [Mass/vol ume] in Serum or Plasma [facility] Glucose [Mass/volume ] in Serum or Plasma [facility] Measurement of renal function [facility] Patient referral [facility] Work Phone: Potassium measurement [facility] Serum chloride measurement [facility] Sodium measurement [facility] Urea nitrogen [Mass/ volume] in Serum or Plasma [facility] Immunizations Immunization Date Immunization Notes Care Provider Fa cilibowen 01-07-[address] [facility] Payers Date Payer Category Payer Medicare [id number] 2023 Self-pay [id number] 2023 Medicare [id number] 2023 Unknown [id number] Unknown [id number] Unknown [id number] Social History Date Type Detail Facility Start: 01-29-2019 End: 03-02-2023 Tobacco smoking status LAIS Unknown if ever smoked [facility] Start: 01-29-2019 Cigarettes [facility] Start: 1955 Sex Assigned At Male [facility] Start: 08-04-2023 Tobacco smoking stat [facility] Ex-smoker (finding) [facility] Medical Equipment Procedure Code Equipment Code Equipment Origin al Text Equipment Identifier Dates NEVIN MORA LG FDA Start: 02-06-2019 NEVIN MORA LG FDA Start: 02-06-2019 NEVIN MORA FDA Start: 02-06-2019 NEVIN MORA FDA Start: 02-06-2019 NEVIN MORA FDA Start: 02-06-2019 NEVIN MORA FDA Start: 02-06-2019 NEVIN MORA FDA Start: 02-06-2019 SEALANT,FLOSEAL HEMOSTATIC 5ML FDA Start: 02-06-2019 NEVIN MORA LG FDA Start: 02-06-2019 NEVIN MORA LG FDA Start: 02-06-2019 NEVIN MORA FDA Start: 02-06-2019 CLIPNEVIN PORRAS D WECK FDA Start: 02-06-2019 CLIPNEVIN PORRAS D WECK FDA Start: 02-06-2019 ABBYHEMFELICITA PORRAS D WECK FDA Start: 02-06-2019 CLIPHEMFELICITA PORRAS D WECK FDA Start: 02-06-2019 SEALANT,FLOSEAL HEMOSTATIC 5ML FDA Start: 02-06-2019 ABBYSOYFELICITA EDOUARD WECK FDA Start: 02-06-2019 ABBYSOYFELICITA EDOUARD WECK FDA Start: 02-06-2019 ABBYNEVIN PORRAS D WEANILA FDA Start: 02-06-2019 ABBYNEVIN PORRAS D WEANILA FDA Start: 02-06-2019 ABBYNEVIN PORRAS D WEANILA FDA Start: 02-06-2019 ABBYNEVIN PORRAS D WEANILA FDA Start: 02-06-2019 ABBYNEVIN PORRAS D WEANILA FDA Start: 02-06-2019 SEALANT,FLOSEAL HEMOSTATIC 5ML FDA Start: 02-06-2019 ABBYSOYFELICITA EDOUARD WECK FDA Start: 02-06-2019 ABBYLEONARDANILA EDOUARD WEANILA FDA Start: 02-06-2019 ABBYNEVIN PORRAS D WECK FDA Start: 02-06-2019 ABBYNEVIN PORRAS D WEANILA FDA Start: 02-06-2019 ABBYNEVIN PORRAS D WEANILA FDA Start: 02-06-2019 ABBYNEVIN PORRAS D WEANILA FDA Start: 02-06-2019 ABBYNEVIN PORRAS D WEANILA FDA Start: 02-06-2019 SEALANT,FLOSEAL HEMOSTATIC 5ML FDA Start: 02-06-2019 ABBYLEONARDANILA LG WECK FDA Start: 02-06-2019 ABBYHEMARSENIOANILA LG WECK FDA Start: 02-06-2019 ABBYNEVIN PORRAS D WECK FDA Start: 02-06-2019 ABBYNEVIN PORRAS D WECK FDA Start: 02-06-2019 ABBYNEVIN PORRAS D WECK FDA Start: 02-06-2019 ABBYNEVIN PORRAS D WECK FDA Start: 02-06-2019 ABBYNEVIN PORRAS D WECK FDA Start: 02-06-2019 SEALANT,FLOSEAL HEMOSTATIC 5ML FDA Start: 02-06-2019 CLIP,HEMFELICITA EDOUARD DENNY FDA Start: 02-06-2019 NEVIN MORA LG FDA Start: 02-06-2019 ABBYNEVIN FDA Start: 02-06-2019 ABBYNEVIN FDA Start: 02-06-2019 NEVIN MORA FDA Start: 02-06-2019 ABBYNEVIN FDA Start: 02-06-2019 ABBYNEVIN FDA Start: 02-06-2019 SEALANT,FLOSEAL HEMOSTATIC 5ML FDA Start: 02-06-2019 ABBYNEVIN LG FDA Start: 02-06-2019 ABBYLEONARDANILA EDOUARD DENNY FDA Start: 02-06-2019 ABBYLEONARDANILA ME Freda BALDWIN FDA Start: 02-06-2019 ABBYNEVIN FDA Start: 02-06-2019 ABBYNEVIN FDA Start: 02-06-2019 ABBYNEVIN BALDWIN FDA Start: 02-06-2019 ABBYNEVIN FDA Start: 02-06-2019 SEALANT,FLOSEAL HEMOSTATIC 5ML FDA Start: 02-06-2019 ABBYNEVIN SILKE DENNY FDA Start: 02-06-2019 ABBYLEONARDANILA EDOUARD DENNY FDA Start: 02-06-2019 ABBYNEVIN FDA Start: 02-06-2019 ABBYNEVIN FDA Start: 02-06-2019 ABBYNEVIN FDA Start: 02-06-2019 ABBYNEVIN BALDWIN FDA Start: 02-06-2019 ABBYNEVIN FDA Start: 02-06-2019 SEALANT,FLOSEAL HEMOSTATIC 5ML FDA Start: 02-06-2019 Progress note 09-19-2024 Note Date & Type Note Facility 09-19-2024 Progress note [facility] Progress note 09-19-2024 Note Date & Type Note Facility 09-19-2024 Progress note Note Date/Time September 19, 2024 11:46am [facility] [address] [place] [address] OFFICE VISIT Date of Service: 09/19/24 MR#: [id number] Acct: [id number] Name: FERN TAPIA Rep #: [id number] : 1955 Provider: Dr. William Camacho MD Age/Sex: 69/M Location[place] [facility] Status: Signed HPI HPI History of Present Illness Details: Pleasant 69-year-old man with history of atrial flutter. He had been on the beta-heather anticoagulation and underwent a DC cardioversion over a year ago. He says that he has been doing well compliant with all his medications has had no cardiac symptomatology his last echocardiogram demonstrated ejection fractionof 55%. He walked into the office today not noted to be tachycardic but an EKG which was done demonstrated atrial flutter with a rate of 131 bpm. He denies missing any dosages of anticoagulation. He denies chest, arm, jaw, or neck discomfort. He denies palpitations. He denies bilateral lower extremity edema. He denies claudication. He denies shortness of breath with activity, shortness of breath at rest, orthopnea, or PND. He denies chronic cough. He denies significant, sudden weight gain. He denies lightheadedness, dizziness, near-syncope, or syncope. He denies blood inurine, blood in stool, or epistaxis. He denies fever with chills. He denies myalgia. He denies fatigue. His exercise level has remained stable. 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 Required: No Accompanied by: Self Is patient in pain?: No Allergies No Known Allergies Allergy (Verified 09/19/24 11:22) Medications ?Medication ?Instructions ?Recorded ?Confirmed ?Type lisinopril 20 1 ea PO DAILY 01/29/1909/19 History mg-hydrochlorothiazide 12.5 mg tablet atorvastatin 20 mg tablet 20 mg PO QDAY 08/04/2309/19 History apixaban 5 mg tablet (Eliquis) 5 mg PO BID 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 #[id number] 05/30/24 09/19/24 Rx tabs metoprolol tartrate 25 mg tablet 25 mg PO BID #180 tab s 06/17/24 09/19/24 Rx Have you fallen in the past year?: No PFSH Medical History History of cardioversion Atrial flutter Tachycardia Benign essential hypertension Surgical History Hx of prostatectomy Family History Father Heart disease Social History Smoking Status: Former smoker how long ago did patient quit smokin year ago alcohol intake: current alcohol intake frequency: 0-2 drinks per day substance use type: does not use caffeine: Yes Type: coffee Number of servings: 1 ROS Const Const: Negative for fatigue, weakness, headache(s), daytime sleepiness or difficulty sleeping ENT ENT: Negative for headache(s), dizziness or Nosebleed/epistaxis Cardio Chest Pain: No Palpitations: No Edema: None Resp Respiratory: Negative for SOB with activity, SOB at rest, SOB orthopnea\SOB lying down or Cough GI GI: Negative nausea, vomiting or heartburn Neuro Neuro: Negative for dizziness, lightheadedness, near syncope, headache(s) or weakness Endo Endo: Negative for fatigue Cardiology Exam Const Appearance: cooperative, healthy appearing, comfortable and no acute distress Nutritional Appearance: average body habitus and well nourished Orientation: alert, awake and oriented x3 Head Head: normal to inspection Ears: hearing grossly normal bilaterally Nose: external nose normal Face and Sinus: face symmetric Mouth: moist mucous membranes Eyes General: appearance normal, both eyes and all related structures Eyelids: eyelids normal EOM: EOM intact bilaterally Neck Neck: normal visual inspection and no JVD Carotids: normal carotid upstroke Chest Chest inspection: normal inspection of the chest, symmetric chest movement and normal respiratory effort; Negative cough Auscultation: Bilateral: Clear to Auscultation Cardio Rate: regular rate Rhythm: regular rhythm Heart sounds: S1 normal and S2 normal; Negative rub, gallop or murmur GI GI: normal to inspection Neuro General: patient alert, patient awake, patient oriented x3 and CN's II-XI intactbilaterally Skin Skin: no rashes or lesions noted Extremities Pulses: Normal: Right Posterior Tibial Pulse, Left Posterior Tibial Pulse, RightRadial Pulse and Left Radial Pulse Lower Extremity Edema: None: Bilateral Psych Psychological: normal affect Supplemental Info Supplemental Information Echocardiogram 03/01/2023: Interpretation Summary Normal LV size. Left ventricular systolic function is normal. The estimated ejection fraction is 55 %. Structurally normal valves. Stress Test 02/23/07 Conclusion Exercise stress test with no EKG criteria for ischemia at a high workload. Nuclear images demonstrate no evidence of ischemia. CT Abdomen and Pelvis with Contrast 11/26/18 FINDINGS: There is moderate atherosclerotic calcification of the abdominal aorta and proximal iliac arteries, without a demonstrated aneurysm. Normal inferior vena cava. Normal retroperitoneum. 7 Day Monitor 01/10/23 Summary Predominant rhythm: AFL Atrial Flutter: 100% PVC: 2.1% Labs: LDL Cholesterol 82 mg/dL (0-130) HDL Cholesterol 59 mg/dL (40-) Cholesterol 162 mg/dL (200) Triglycerides 105 mg/dL (-199) Diagnostics: Electrocardiogram Echocardiogram Pulmonary: No Data to Display Past Visits: Cardiology Visit 09/19/24 Assessment and Plan Assessment and Plan (1) Atrial flutter: Status: Acute Qualifiers: Atrial flutter type: unspecified Qualified Code(s): I48.92 - Unspecified atrial flutter Plan: Atrial Fibrillation Diagnosis: 01/04/2023 he appears to have had a recurrence of the above. [id number] score: 2 (age, HTN) (2.2% stroke risk) Atrial fibrillation/flutter stage: 3A, paroxysmal 12 Lead EC03/09/2023-sinus bradycardia 55 bpm DCCV: 03/01/2023 Echocardiogram: 03/01/2023-EF: 55%, normal left atrium, normal right atrium size Heart Rate Control: Metoprolol tartrate 25 mg p.o. twice daily I will increase the above dose to 50 mg twice a day until he undergoes DC cardioversion. Anticoagulation/CVA Protection: Eliquis 5 mg p.o. twice daily He will continue current medications. Lifestyle modification reviewed with him. No changes made today. (2) Benign essential hypertension: Status: Acute Plan: Patient's blood pressure is well-controlled. We will continue to monitor. We will not make any medication regimen changes. Orders: Orders 12 Lead EKG performed by [facility] Today I48.92 - Unspecified atrial flutter, R00.0 -Tachycardia, unspecified Basic Metabolic Profile (BMP) Today I48.92 - Unspecified atrial flutter Cardioversion Today I48.92 - Unspecified atrial flutter Plan Details Additional Comments: Thank you for allowing us to participate in the patients plan of care, if you have any questions please do not hesitate to call. This note was generated using a voice recognition system and there may be incorrect words, spelling or punctuation that were not noted when reviewing the office note prior to saving. Portions of this documentation were copied and pasted from previous office visitnotes to provide a cohesive continuity of the history. The note has been reviewed, edited, and updated, as necessary. Follow Up: 2 Months (sd) Coding Level of Care Code Off vis,est,level 4 Diagnoses Atrial flutter, unspecified type I48.92 Atrial flutter type: unspecified Benign essential hypertension I10 Coding Level of Care Code Off vis,est,level 4 Diagnoses Atrial flutter, unspecified type I48.92 Atrial flutter type: unspecified Benign essential hypertension I10 Clinical Quality Measures Falls Risk Screening/Assistive Devices Have you fallen in the past year?: No 09/19/24 1146 <Electronically signed by Greyson Barba> Date _ Greyson Lnage Signature: Date (if applicable) CC: Dr. Darin Walton MD ~ [facility] Work Phone: Procedure note 03-02-2023 Note Date & Type Note Facility 03-02-2023 Procedure note [facility] Procedure note 03-02-2023 Note Date & Type Note Facility 03-02-2023 Procedure note [facility] History and physical note 02-14-2023 Note Date & Type Note Facility 02-14-2023 History and physi victor manuel note Note Date/Time February 14, 2023 1:04pm [facility] Medical Records Department [address] [place] [address] History & Physical Exam 02/14/23 1301 MR#: [id number] Acct: [id number] Name: FERN TAPIA Rep #:[id number] : 1955 67 From: Greyson Camacho MD PCP: Dr. Diallo Walton MD [place] [facility] [place] History and Physical Date of Admission: 03/02/23 This is a pleasant 67-year-old man who presents today for a cardioversion. He has no previous cardiac history other than hypertension who went for routine physical and an EKG was done in your office which demonstrated a narrow complex tachycardia with flutter waves consistent with atrial flutter at a rate of 140 bpm. He was placed on the beta-heather as well as an anticoagulant and has tolerated this well. He apparently is quite active he denies any chest pain or shortness of breath or paroxysmal nocturnal dyspnea or pedal edema he has had noneck arm or jaw discomfort to suggest angina. He has been compliant with all his medications his most recent lipid profile demonstrated total cholesterol 162HDL 59 LDL of 82. His EKG in the office demonstrated atrial flutter with a rateof 95 bpm and no acute changes his blood pressure is under good control. Intake Vital Signs See EMR Allergies See EMR Medications See EMR [facility] Medical History Atrial flutter Benign essential hypertension Tachycardia Surgical History Hx of prostatectomy Family History Father Heart disease Social History Smoking Status: Light Smoker (<10/day) alcohol intake: current alcohol intake frequency: 0-2 drinks per day ROS Const Const: Negative for fatigue, weakness, headache(s), daytime sleepiness or difficulty sleeping Eyes Eyes: Negative for change in vision ENT ENT: Negative for headache(s), dizziness or Nosebleed/epistaxis Cardio Chest Pain: No Palpitations: No Edema: None Resp Respiratory: Negative for SOB with activity, SOB at rest, SOB orthopnea\SOB lying down or Cough GI GI: Negative nausea, vomiting or heartburn Neuro Neuro: Negative for dizziness, lightheadedness, near syncope, headache(s) or weakness Endo Endo: Negative for fatigue Cardiology Exam Const Appearance: cooperative, healthy appearing, no acute distress, well developed and well groomed Nutritional Appearance: average body habitus and well nourished Orientation: alert, awake and oriented x3 Head Head: normal to inspection, normocephalic and atraumatic Ears: hearing grossly normal bilaterally and external ears normal Nose: external nose normal, nares normal, nasal mucous membranes and turbinates normal, septum normal and no nasal discharge Face and Sinus: face symmetric Mouth: oral mucosae normal, tongue normal, oropharynx normal and moist mucous membranes Teeth and gingiva: dentition normal Throat: posterior oropharynx normal, tonsils normal and uvula midline Eyes General: appearance normal, both eyes and all related structures Eyelids: eyelids normal Conjunctivae: conjunctivae normal Pupils: PERRL, normal by confrontation and accommodation normal EOM: EOM intact bilaterally Neck Neck: normal visual inspection, trachea midline and no JVD JVD: +5 Carotids: normal carotid upstroke and bounding pulses Chest Chest inspection: normal inspection of the chest, symmetric chest movement and normal respiratory effort Auscultation: Bilateral: Clear to Auscultation Cardio Palpation: normal PMI Rate: regular rate Rhythm: regular rhythm Heart sounds: S1 normal, S2 normal and normal, physiologic split S2; Negative rub, gallop or murmur GI GI: normal to inspection, soft, no hepatosplenomegaly and bowel sounds present Neuro General: patient alert, patient awake, patient oriented x3, gait normal, moves all extremities and no focal sensory deficit Skin Skin: no rashes or lesions noted Extremities Pulses: Normal: Right Femoral Pulse, Left Femoral Pulse, Right Dorsalis Pedis Pulse, Left Dorsalis Pedis Pulse, Right Posterior Tibial Pulse, Left Posterior Tibial Pulse, Right Radial Pulse and Left Radial Pulse Lower Extremity Edema: None: Bilateral Musculoskel Musculoskeletal: No joint tenderness Psych Psychological: normal affect Supplemental Info Supplemental Information Stress Test 02/23/07 Conclusion Exercise stress test with no EKG criteria for ischemia at a high workload. Nuclear images demonstrate no evidence of ischemia. CT Abdomen and Pelvis with Contrast 11/26/18 FINDINGS: There is moderate atherosclerotic calcification of the abdominal aorta and proximal iliac arteries, without a demonstrated aneurysm. Normal inferior vena cava. Normal retroperitoneum. Assessment and Plan Assessment and Plan (1) Atrial flutter: Status: Acute Plan: He does have a history of atrial flutter the duration of which is unclear at this time. His [id number] score is at least 2 and my recommendation at this time will be to continue with anticoagulation and attempt DC cardioversion. Therisk benefits alternatives have been explained to him and his they understand and agree to proceed. 02/14/23 1333 <Electronically signed by Greyson Camacho MD> Cosigner Signature (if applicable): 02/14/23 1304 <Electronically signed by Mealny Salmeron NP COATING MANAGER-C> CC: COATING MANAGER-C Melany Salmeron; Dr. Diallo Walton MD; Dr. Greyson Camacho MD~ Signed [facility] Work Phone: Evaluation note Note Date & Type Note Facility Evaluation note No assessment information availa ble [facility] Work Phone: Evaluation note Note Date & Type Note Facility Evaluation note Diagnosis Onset Date Atrial flutter acute Benign essential hypertension acute [facility] Work Phone: Evaluation note Note Date & Type Note Facility Evaluation note Diagnosis Onset Date Resolution Atrial flutter acute September 19, 2024 11:18am Benign essential hypertension acute September 19, 2024 11:18am [facility] Work Phone: Reason for referral (narrative) Note Date & Type Note Facility Reason for referral (narrative) No reason for referral information available [facility] Work Phone: Summary Purpose Family History Relationship Condition Age at Onset Recorded Date/T anu father Cardiac disease Unknown Advance Directives Advance Directive Response Recorded Date/ Time Living Will Yes February 06, 2 019 2:59pm Power of School Library Media Program Director Yes February 06, 2019 2:59pm Advance Directive Response Recorded Date/ Time Living Will Yes February 06 019 1:59pm Power of School Library Media Program Director Yes February 06, 2019 1:59pm Advance Directive Response Recorded Date/ Time Advance Directives on File No Tessy 2023 11:02am Name of Medical Power of School Library Media Program Director Mari Wolff er- Spouse March 02, 2023 11:02am Advance Directives Yes March 02, 2023 11:02am Living Will Yes March 02 11:02am Power of School Library Media Program Director Yes March 02 11:02am Advance Directive Response Recorded Date/ Time Living Will Yes March 02 12:02pm Do you have a Healthcare Power of School Library Media Program Director? Yes March 02, 2023 12:02pm Advance Directives Yes March 02, 2023 12:02pm Chief Complaint and Reason for Visit Chief Complaint Malignant neoplasm o f prostate Chief Complaint NEW ONSET AFLUTTER ( RANNEY) Atrial fibrillation Unspecified atrial flutter Amb Documentation AFIB Atrial fibrillation Atrial fibrillation Reason for Visit Atrial flutter Benign essential hypertension Chief Complaint NEW ONSET AFLUTTER ( RANNEY) Atrial fibrillation Unspecified atrial flutter Amb Documentation AFIB Atrial fibrillation Atrial fibrillation 1 W DCCV EKG Reason for Visit Atrial flutter Benign essential hypertension Chief Complaint Admit Date 1 Y FU September 19, 2024 11:1 8am Reason for Visit Admit Date Atrial flutter September 19, 2024 11:1 8am Benign essential hypertension September 19, 2024 11:18am Additional Source Comments (unrecognized sect ion and content) No Status Records FoundNo Status Records Found INFORMATION SOURCE (unrecogn ized section and content) DATE CREATED AUTHOR 02/16/2019 [facility] ([place]) DATE CREATED AUTHOR AUTHOR'S ORGANIZ ATION 05/01/2024 [facility] Goals (unrecognized section and content) Goals may be documented in a n alternate sectionGoals may be documented in an alternate sectionGoals may be documented in an alternate sectionGoals may be documented in an alternate sectionGoals may be documented in an alternate sectionGoals may be documented in an alternate sectionGoals may be documented in an alternate sectionGoals may be documented in an alternate section Care Teams (unrecognized sec tion and content) Team Status: Active Member Role Status Dates Dr. Diallo Walton MD Family Provider Active Dr. Diallo Walton MD Primary Care Provider Activ e Team Status: Inactive Member Role Status Dates Dr. Diallo Walton MD Primary Care Provider Activ e Dr. Houston Conklin MD Attending Provider, Referr ing Provider Active Team Status: Inactive Member Role Status Dates Dr. Diallo Walton MD Primary Care Provider, Atte nding Provider Active Team Status: Inactive Member Role Status Dates Dr. Diallo Walton MD Primary Care Provider, Refe rring Provider Active Dr. Greyson Camacho MD Attending Provider Active Team Status: Active Member Role Status Dates Dr. Diallo Walton MD Primary Care Provider Activ e Dr. Greyson Camacho MD Attending Provider, Referring Provider, Other Provider Active Team Status: Active Member Role Status Dates Dr. Diallo Walton MD Primary Care Provider Activ e Dr. Greyson Camacho MD Attending Provider Active Team Status: Active Member Role Status Dates Dr. Diallo Walton MD Primary Care Provider Activ e Melany Salmeron COATING MANAGER, COATING MANAGER-C Attending Provider Active Team Status: Active Member Role Status Dates Dr. Diallo Walton MD Primary Care Provider Activ e Dr. Greyson Camacho MD Referring Provider, Other Provide r Active Dr. Alan Simmons MD Attending Provider Active Team Status: Inactive Member Role Status Dates Dr. Diallo Walton MD Primary Care Provider Activ e Dr. Greyson Camacho MD Attending Provider, Referring Pro vider Active Team Status: Active Member Role Status Dates Dr. Diallo Walton MD Primary Care Provider Activ e Dr. Greyson Camacho MD Attending Provider, Referring Pro vider Active Team Status: Inactive Member Role Status Dates Dr. Diallo Walton MD Primary Care Provider Activ e Janet Francisco Attending Provider, Referring Provide r Active Team Status: Active Member Role/Relationship Status Dates Dr. Darin Walton MD Primary Care Provider Acti ve Team Status: Inactive Member Role/Relationship Status Dates Dr. Darin Walton MD Primary Care Provider Acti ve Start: September 19, 2024 End: September 19, 2024 Dr. Darin Walton MD Referring Provider Active Start: September 19, 2024 End: September 19, 2024 Dr. Greyson Camacho MD Attending Provider Active S tart: September 19, 2024 End: September 19, 2024 Team Status: Active Member Role/Relationship Status Dates Dr. Darin Walton MD Primary Care Provider Acti ve Start: September 19, 2024 Dr. Greyson Camacho MD Attending Provider Active S tart: September 19, 2024 Dr. Greyson Camacho MD Referring Provider Active S tart: September 19, 2024 FOR RECORDS PERTAINING TO PATIENTS WHO ARE OR HAVE BEEN ENROLLED IN A CHEMICAL DEPENDENCY/SUBSTANCEABUSE PROGRAM, SOME INFORMATION MAY BE OMITTED. This clinical summary was aggregated from multiple sources. Caution should be exercised in using it in the provision of clinical care. This summary normalizes information from multiple sources, and as a consequence, information in this document may materially change the coding, format and clinical context of patient data. In addition, data may be omitted in some cases. CLINICAL DECISIONS SHOULD BE BASED ON THE PRIMARY CLINICAL RECORDS. [facility] [employer] [facility]. provides no warranty or guarantee of the accuracy or completeness of information in this document.
--- NOTE | 2024-09-20 08:12 | PCM.OP.PRO2 ---
Non-invasive Procedural Procedure Information Date of Procedure: 09/20/24 Pre-Procedure Diagnosis: Atrial flutter Post-Procedure Diagnosis: Type I atrial flutter Procedure Performed:: DC cardioversion Procedure Time Out: 08:00 Procedure Start Time: 08:05 Procedure Stop Time: 08:10 Special Medications: 60 mg intravenous propofol Description of procedure: Patient was brought to cardiac catheterization lab in the postabsorptive nonsedated state. Informed consent was obtained. Dr. Mckinley saw the patient. Anterior posterior pads were applied. 60 mg of intravenous propofol were administered and then 200 J of biphasic DC cardioversion energy were applied with prompt reversal to sinus rhythm. Patient did have mild 2-second pauses but then reverted into sinus rhythm. Patient tolerated the procedure well. Procedure findings: Successful DC cardioversion from atrial flutter to sinus rhythm. Patient will continue anticoagulation at this time In addition the patient was discussed and was seen by Dr. Benitez of the electrophysiology department. It was determined that this would be an appropriate candidate for atrial flutter ablation here in [place]. A tentative date has been set for October 17. Risk benefits alternatives have been explained to the patient as well as his and they are all in agreement. Arrangements will be made for this. Complications Complications: No
--- NOTE | 2024-09-20 08:29 | PCM.OP.PRO2 ---
Procedures Pulmonary Pulmonary Procedures /Diagnostic Testin Con Sedation Non-invasive Procedural Procedure Information Date of Procedure: 09/20/24 Description of procedure: CONSCIOUS SEDATION REPORT DATE OF SERVICE: September 20, 2024 BRIEF HISTORY OF PRESENT ILLNESS: The patient is a 69-year-old male who presented to [facility] to undergo an elective outpatient cardioversion due to underlying atrial fibrillation. The patient did undergo a prior cardioversion in February 2023, during which time, the patient required 100 mg of propofol to achieve an appropriate level of sedation. The patient is systemically anticoagulated on Eliquis. His last surface echocardiogram demonstrated an ejection fraction of approximately 55%. The patient does not carry a diagnosis of obstructive sleep apnea. He does have a prior tobacco abuse history. PHYSICAL EXAMINATION: VITAL SIGNS: Reviewed and were acceptable. GENERAL: The patient is a male, in no apparent distress, speaking in full sentences. HEENT: Normocephalic, atraumatic. Mucous membranes are moist and pink. Good mouth opening noted. Trachea is midline. Good neck mobility. CHEST: S1, S2 irregularly irregular. No murmurs, rubs or gallops were noted. LUNGS: Clear to auscultation bilaterally without appreciable wheezes, rales or rhonchi. ABDOMEN: Soft, nontender, nondistended. Positive bowel sounds. EXTREMITIES: There is no clubbing, cyanosis or edema. ASA Class: II DESCRIPTION OF PROCEDURE: After confirmation of informed consent, the patient's anesthesia plan was reviewed in detail. Propofol was chosen. Risks and benefits were reviewed and the patient agreed to proceed. At 808, the patient was given 60 mg of propofol. The patient achieved an appropriate level of sedation and was given a 200 joule synchronized cardioversion by Dr. Camacho at the bedside. This was successful in achieving normal sinus rhythm. The patient was monitored until 824, at which time he reached his baseline mental status and function. The patient tolerated the procedure well. COMPLICATIONS: None ESTIMATED BLOOD LOSS: None RECOMMENDATIONS: Okay to recover in usual fashion.
== END 2024-09-20 09:10 | disposition home or self-care (01) ==
PROVIDERS: PCP Family Medicine; Referring Provider Internal Medicine Cardiovascular Disease; Visit Provider Internal Medicine Cardiovascular Disease
DX: I48.92 Unspecified atrial flutter (principal); I48.91 Unspecified atrial fibrillation; Z87.891 Personal history of nicotine dependence; Z79.01 Long term (current) use of anticoagulants; I10 Essential (primary) hypertension; Z82.49 Family history of ischemic heart disease and other diseases of the circulatory system
CPT/HCPCS: 92960; 93005

== ENCOUNTER → 2024-10-14 | Outpatient (CLI) | payer MEDICARE, SELFPAY ==
[2024-10-14 10:53] LABS: AST(SGOT) 21 U/L (<=37); Alanine Aminotransfer ALT/SGPT 25 U/L (<=46); Albumin, Serum 4.5 g/dL (3.4-4.8); Alkaline Phosphatase 69 U/L (40-129); Anion Gap 11 (5-15); BUN 14 mg/dL (4-19); BUN/Creat Ratio 13.8 RATIO (10-20); Calcium,Total 9.5 mg/dL (7.6-11.0); Carbon Dioxide 25.6 mmol/L (21.0-32.0); Chloride 100 mmol/L (98-108); Cholesterol 181 mg/dL (<=200); Globulin 2.7 g/dL (2.2-4.2); Glucose 119 mg/dL (70-99); Low Density Lipoprotein Calc. 98 mg/dL; Potassium 4.2 mmol/L (3.3-5.1); Triglycerides 97 mg/dL; Very Low Density Lipoprotein 19 mg/dL (5-40); cholesterol:hdl ratio screen 2.85
[2024-10-14 11:43] LABS: PSA,Total- Diagnostic 0.17 ng/mL (0.00-4.00)
--- OUTSIDE RECORDS SUMMARY | 2024-10-14 20:52 | XMS RPT_ITS | CCD ---
Author Organization [facility] [employer] Care Team Providers Care Engineer [employer] Name Role Phone Brower, Gemma R Unavailable Unavailable Brower, Gemma R Unavailable Unavailable Leonarda, Gemma R Unavailable Unavailable Dr. Diallo Walton Primary Care Provider Dr. Diallo Walton Referring Provider Dr. Greyson Camacho Attending Provider [phone] Greyson Camacho Referring Provider [phone] Greyson Camacho Other Provider Jaron SORENSON, MULTIFOCAL LENS INSPECTORMiryam Mosley Attending Provider Dr. Alan Simmons Attending Provider [facility] Isabelle WEN, Dr. Webster Primary Care Provider Dr. Darin Walton MD Referring Provider Dr. Greyson Camacho MD Attending Provider [phone] Greyson Camacho MD Referring Provider [phone] Greyson Camacho MD Other Provider Dr. Jasper Mckinley DO Attending Provider Greyson Camacho Attending Unavailable Doug, Greyson Referring Unavailable Darin Walton Primary Care Unavailable DougKiran alasril Attending Unavailable Doug, Corrales Referring Unavailable Darin Walton Primary Care Unavailable Good Benitez Attending Unavailable Darin Walton Primary Care Unavailable Doug, Corrales Attending Unavailable Doug, Greyson Referring Unavailable Darin Walton Primary Care Unavailable Doug, [place]rales Consulting Unavailable Jasper Mckinley Attending Unavailable Doug, Corrales Referring Unavailable Darin Walton Primary Care Unavailable Greyson Camacho Consulting Unavailable Greyson Camacho Attending Unavailable Darin Walton Referring Unavailable Darin Walton Primary Care Unavailable Greyson Camacho Attending Unavailable Darin Walton Referring Unavailable Darin Walton Primary Care Unavailable Houston Conklin Attending Unavailable Houston Conklin Referring Unavailable Darin Walton Primary Care Unavailable Medications Current Medications Medication Drug Class(es) Dates Sig (Normalized) Sig (Original) atorvastatin 20 mg oral tablet (4 sources) HMG-CoA Reductase Inhibitor Start: 08-04-2023 take 1 tablet by mouth once daily Atorvastatin 20 mg tablet Active 20 mg PO daily August 04, 2023 12:00am hydroCHLOROthiazide 12.5 mg / lisinopril 20 mg oral tablet (11 sources) Thiazide Diuretic, Angiotensin Converting Enzyme Inhibitor Start: 01-29-2019 Lisinopril-Hydroc hlorothiazide 1 EACH tablet Active 1 NMA PO DAILY January 29, 2019 1:00am Start: 01-29-2019 Lisinopril-Hyd rochlorothiazide Active 1 EACH PO DAILY January 29, 2019 12:00am Ajlkbmas-Ihl-Pm-Lycopen-Lute in (2 sources) Start: 01-29-2019 Jaqkrcpj-Mpq-Up-Lycopen-Lute in Active 1 EACH PO DAILY January 29, 2019 12:00am Start: 01-29-2019 Ecqmjjco-Jki-C v-Kpsycmh-Abboeu Active 1 EACH PO DAILY January 29, 2019 1:00am Completed/Discontinued Medications Medication Drug Class(es) Dates Sig (Normalized) Sig (Original) acetaminophen 325 mg / HYDROcodone bitartrate 5 mg oral tablet (11 sources) Opioid Agonist Start: 02-06-2019 End: 02-13-2019 Hydrocodone-Acetami nophen 1 EACH tablet Discontinued 1 NMA PO EVERY 4 HOURS NEEDED as needed for Pain Score 1-10/10 14 5 0 February 06, 2019 February 10, 2019 1:00am February 13, 2019 1:12am Malignant neoplasm of prostate Start: 02-06-2019 End: 02-13-2019 Hydrocodone-Acetaminophen Di scontinued 1 EACH PO EVERY 4 HOURS NEEDED 14 5 February 06, 2019 February 13, 2019 12:12am apixaban 5 mg oral tablet (20 sources) Factor Xa Inhibitor Start: 01-25-2023 End: 05-30-2024 take 1 tablet by mouth twice daily Apixaban (Eliquis) 5 mg tablet Discontinued 5 mg PO TWICE A DAY 360 May 29, 2023 1:55pm May 30, 2024 3:39pm Pt to grape picker RX aspirin 81 mg delayed release oral tablet (11 sources) Platelet Aggregation Inhibitor, Nonsteroidal Anti-inflammatory Drug Start: 01-29-2019 End: 01-25-2023 take 1 tablet by mouth once daily Aspirin 81 MG tablet Discontinued 81 mg PO DAILY@0800 January 29, 2019 1:00am January 25, 2023 12:19pm ciprofloxacin 500 mg oral tablet (11 sources) Quinolone Antimicrobial Start: 02-06-2019 End: 01-11-2023 take 1 tablet by mouth twice daily Ciprofloxacin Hcl 500 MG tablet Discontinued 500 mg PO TWICE A DAY 14 February 06, 2019 1:00am January 11, 2023 11:19am docusate sodium 100 mg oral capsule (11 sources) Start: 02-06-2019 End: 01-25-2023 take 1 capsule by mouth twice daily Docusate Sodium 100 MG capsule Discontinued 100 mg PO TWICE A DAY 20 February 06, 2019 1:00am January 25, 2023 11:36am gabapentin 100 mg oral capsule (3 sources) Anti-epileptic Agent Start: 07-07-2016 GABAPENTIN 100 MG CAPS daily GABAPENTIN [id number] Gemma Brower lisinopril 20 mg oral tablet (3 sources) Angiotensin Converting Enzyme Inhibitor Start: 07-07-2016 LISINOPRIL 20 MG TABS daily LISINOPRIL [id number] Gemma Brower meloxicam 15 mg oral tablet (3 sources) Nonsteroidal Anti-inflammatory Drug Start: 07-07-2016 MOBIC 15 MG TABS MELOXICAM [id number] Gemma Brower metoprolol tartrate 25 mg oral tablet (20 sources) beta-Adrenergic Heather Start: 05-26-2023 End: 06-17-2024 take 1 tablet by mouth twice daily Metoprolol Tartrate 25 mg tablet Discontinued 25 mg PO TWICE A DAY 180 May 31, 2024 8:07am June 17, 2024 3:20pm Start: 01-25-2023 End: [...] 11, 2023 1:00am January 25, 2023 11:38am Aa-Rbk-Kcnfl-K9-Sqlhgju-Pofx in (5 sources) Start: 01-29-2019 End: 01-25-2023 Om-Yef-Lhlkc-Y7-Azmfmre-Leap in Discontinued 1 EACH PO DAILY January 29, 2019 12:00am January 25, 2023 10:37am Start: 01-29-2019 Ta-Kcw-Szieo-K 8-Kmeqigq-Tfdagy Active 1 EACH PO DAILY January 29, 2019 12:00am Start: 01-29-2019 Xt-Cme-Rwcgh-K 9-Vyanbmi-Eqvrll Active 1 EACH PO DAILY January 29, 2019 1:00am Mb-Uqg-Hqbfr-M1-Mdalhzg-Haio in 1 EACH tablet (4 sources) Start: 01-29-2019 End: 01-25-2023 take 1 tablet by mouth once daily Gi-Dsw-Utliv-S3-Lfqpvbn-Obghbf 1 EACH tablet Discontinued 1 NMA PO DAILY January 29, 2019 1:00am January 25, 2023 11:37am simvastatin 40 mg oral table t (14 sources) HMG- CoA Redu ctas e Inhi bito r Start: 01-29-2019 End: 08-04-2023 take 1 tablet by mouth at bedtime Simvastatin 40 MG tablet Discontinued 40 mg PO AT BEDTIME January 29, 2019 1:00am August 04, 2023 9:15am Start: 07-07-2016 SIMVASTATIN 10 MG TABS daily SIMVASTATIN [id number] Gemma Brower Problems Active Problems Problem Classification Problem Date Documented Date Episodic/Chronic Cancer of prostate (1 source) Malignant neoplasm of prostate; Translations: [Malignant neoplasm of prostate] Onset: 04-30-2024 Chronic Cardiac dysrhythmias (16 sources) Atrial flutter; Translations: [Unspecified atrial flutter] Onset: 09-27-2024 01-11-2023 Chronic Cardiac dysrhythmias (9 sources) Tachycardia; Translations: [Tachycardia, unspecified] Onset: 09-19-2024 01-11-2023 Episodic Disorders of lipid metabolism (3 sources) Hypercholesterolemia; Translations: [Disorder of bile acid and cholesterol metabolism, unspecified] Onset: 07-07-2016 07-07-2016 Chronic Essential hypertension (18 sources) Hypertensive disorder; Translations: [Benign essential hypertension] Onset: 07-07-2016 07-07-2016 Chronic Other screening for suspected conditions (not mental disorders or infectious disease) (7 sources) Electrocardiogram abnormal; Translations: [Abnormal electrocardiogram [ECG] [EKG]] 02-28-2023 Episodic Residual codes; unclassified (5 sources) History of cardioversion; Translations: [Personal history of other medical treatment] 03-09-2023 Episodic Residual codes; unclassified (1 source) Personal history of other medical treatment; Translations: [Personal history of other medical treatment] Onset: 09-27-2024 Episodic Past or Other Problems Problem Classification [...] Test Name Value Interpretation Reference Range Facility Office Visit Reporton 2024 Office Visit Report [facility] [address] [place] [address] OFFICE VISIT Date of Service: 09/27/24 MR#: [id number] Acct: [id number] Patient: FERN TAPIA Rep #: [id number] : 1955 Provider: Dr. Greyson Camacho MD Age/Sex: 69/M [place] [facility] [place] Status: Signed Intake Vital Signs 09/19/24 11:19 09/20/24 07:23 Height 5 ft 10 in 5 ft 10.08 in Intake Visit Reasons: 1 W DCCV Allergies No Known Allergies Allergy (Verified 09/19/24 11:22) Have you fallen in the past year?: No Nursing Note Patient in office for post cardioversion EKG. DCCV was done by Dr. Camacho on 09/20/2024. EKG reviewed by MMM. Patient in normal rhythm, can continue current medications unchanged. Follow-up with Saurav Ag on 11/01/2024. Patient states he has an appointment for a procedure with Dr. Benitez, but he's supposed to talk to someone about it first. Patient aware note will be sent to Dr. Camacho and office will call 's cell phone (per pt request) with recommendations. Assessment and Plan Assessment and Plan Orders: Orders 12 Lead EKG performed by [facility] 09/27/24 I48.92 - Unspecified atrial flutter, Z92.89 - Personal history of other medical treatment Clinical Quality Measures Falls Risk Screening/Assistive Devices Have you fallen in the past year?: No 09/28/24918 Date Greyson Camacho MD Cosigner Signature: Date (if applicable) CC: Normal [facility] Procedure Reporton Procedure Report [facility] Medical Records Department [address] [place] [address] Procedure Report 09/20/24 0829 MR#: [id number] Acct: [id number] Name: FERN TAPIA Rep #: [id number] : 1955 69 From: Jasper Mckinley DO PCP: Dr. Darin Walton MD Status:[facility] Location: [facility] Procedures Pulmonary Pulmonary Procedures /Diagnostic Testin Con Sedation Non-invasive Procedural Procedure Information Date of Procedure: 09/20/24 Description of procedure: CONSCIOUS SEDATION REPORT DATE OF SERVICE: September 20, 2024 BRIEF HISTORY OF PRESENT ILLNESS: The patient is a 69-year-old male who presented to [facility] to undergo an elective outpatient cardioversion due to underlying atrial fibrillation. The patient did undergo a prior cardioversion in February 2023, during which time, the patient required 100 mg of propofol to achieve an appropriate level of sedation. The patient is systemically anticoagulated on Eliquis. His last surface echocardiogram demonstrated an ejection fraction of approximately 55%. The patient does not carry a diagnosis of obstructive sleep apnea. He does have a prior tobacco abuse history. PHYSICAL EXAMINATION: VITAL SIGNS: Reviewed and were acceptable. GENERAL: The patient is a male, in no apparent distress, speaking in full sentences. HEENT: Normocephalic, atraumatic. Mucous membranes are moist and pink. Good mouth opening noted. Trachea is midline. Good neck mobility. CHEST: S1, S2 irregularly irregular. No murmurs, rubs or gallops were noted. LUNGS: Clear to auscultation bilaterally without appreciable wheezes, rales or rhonchi. ABDOMEN: Soft, nontender, nondistended. Positive bowel sounds. EXTREMITIES: There is no clubbing, cyanosis or edema. ASA Class: II DESCRIPTION OF PROCEDURE: After confirmation of informed consent, the patient's anesthesia plan was reviewed in detail. Propofol was chosen. Risks and benefits were reviewed and the patient agreed to proceed. At 808, the patient was given 60 mg of propofol. The patient achieved an appropriate level of sedation and was given a 200 joule synchronized cardioversion by Dr. Camacho at the bedside. This was successful in achieving normal sinus rhythm. The patient was monitored until 824, at which time he reached his baseline mental status and function. The patient tolerated the procedure well. COMPLICATIONS: None ESTIMATED BLOOD LOSS: None RECOMMENDATIONS: Okay to recover in usual fashion. 09/20/24830 Cosigner Signature (if applicable): CC: Dr. Darin Walton MD; Dr. Greyson Camacho MD; Dr. Jasper Mckinley DO Signed Normal [facility] Procedure Report [facility] Medical Records Department [address] [place] [address] Procedure Report 09/20/24 08 MR#: [id number] Acct: [id number] Name: FERN TAPIA Rep #: [id number] : 1955 69 From: Greyson Camacho MD PCP: Dr. Darin Walton MD Status:[facility] Location: [facility] Non-invasive Procedural Procedure Information Date of Procedure: 09/20/24 Pre-Procedure Diagnosis: Atrial flutter Post-Procedure Diagnosis: Type I atrial flutter Procedure Performed:: DC cardioversion Procedure Time Out: 08:00 Procedure Start Time: 08:05 Procedure Stop Time: 08:10 Special Medications: 60 mg intravenous propofol Description of procedure: Patient was brought to cardiac catheterization lab in the postabsorptive nonsedated state. Informed consent was obtained. Dr. Mckinley saw the patient. Anterior posterior pads were applied. 60 mg of intravenous propofol were administered and then 200 J of biphasic DC cardioversion energy were applied with prompt reversal to sinus rhythm. Patient did have mild 2-second pauses but then reverted into sinus rhythm. Patient tolerated the procedure well. Procedure findings: Successful DC cardioversion from atrial flutter to sinus rhythm. Patient will continue anticoagulation at this time In addition the patient was discussed and was seen by Dr. Benitez of the electrophysiology department. It was determined that this would be an appropriate candidate for atrial flutter ablation here in [place]. A tentative date has been set for October 17. Risk benefits alternatives have been explained to the patient as well as his and they are all in agreement. Arrangements will be made for this. Complications Complications: No 09/20/24 0816 Cosigner Signature (if applicable): CC: Dr. Darin Walton MD; Dr. Greyson Camacho MD; Dr. Good Benitez MD Signed ADDENDUM by Dr. Good Benitez MD on 09/20/24 at 1422 Addendum The patient 69-year-old gentleman with history of paroxysmal atrial flutter. Patient had undergone cardioversion in 2023 and had a recurrence. Patient presented today as an outpatient for repeat cardioversion for atrial flutter. Prior to the cardioversion I reviewed the EKG. EKG shows flutter waves positive in lead V1 and negative in leads II, III, aVF suggesting this is a right-sided isthmus dependent counterclockwise flutter. I discussed with him and his regarding the risks and benefits of EP study and flutter ablation. I explained the risk of potential groin complications, bleeding, bruising as well as risk of cardiac perforation. They are agreeable to proceed with attempted right-sided flutter ablation. At present I do not feel patient would require a left-sided A-fib ablation with isolation of pulmonary veins. Patient underwent successful cardioversion today and will be discharged. Patient will continue on oral anticoagulation. Patient will be scheduled for flutter ablation in 1 month's time. Good Benitez MD 09/20/24 09/20/24 2810 Cosigner Signature (if applicable): cc: Dr. Darin Walton MD; Dr. Greyson Camacho MD; Dr. Good Benitez MD * Signed Normal [facility] Anion gap in Serum or Plasma Ordered By: Greyson Camacho on 09-19-2024 Anion gap [Moles/Vol] 12 mmol/L 07-11 [facility] BUN/creatinine ratioOrdered By: Greyson Camacho on 09-19-2024 Urea nitrogen/Creatinine [Mass ratio] 15.4 mg/mg 12-16 [facility] Basic Metabolic Profile (BMP )on 09-19-2024 BUN/CRE 15.4 RATIO Normal 12-16 [facility] Comment on above: Performed By: #### L 500.2500 #### [facility] [address] [place], [address] Calcium [Mass/Vol] 9.1 mg/dL Normal 7.6-11.0 [facility] Comment on above: Performed By: #### L [id number] #### [facility] [address] [place], [address] Chloride [Moles/Vol] 101 mmol/L Normal 98-108 [facility] Comment on above: Performed By: #### L [id number] #### [facility] [address] [place], [address] CO2 [Moles/Vol] 23.6 mmol/L Normal 21.0-32.0 [facility] Comment on above: Performed By: #### L [id number] #### [facility] [address] [place], [address] Creatinine [Mass/Vol] 1.01 mg/dL Normal 0.70-1.20 [facility] Comment on above: Performed By: #### L [id number] #### [facility] [address] [place], [address] GAP 12 Normal 5-15 [facility] Comment on above: Performed By: #### L 500.2500 #### [facility] [address] [place], [address] GFR/1.73 sq M.predicted among non-blacks MDRD (S/P/Bld) [Vol rate/Area] 80 mL/min/{1.73_m2} Normal >60 [facility] Comment on above: Result Comment: mL/m in/1.73m2 CKD-EPI Creatinine Equation (2020) Performed By: #### L 500.2500 #### [facility] [address] [place], [address] Glucose [Mass/Vol] 127 mg/dL High 70-99 [facility] Comment on above: Performed By: #### L [id number] #### [facility] [address] [place], [address] Potassium [Moles/Vol] 3.9 mmol/L Normal 3.3-5.1 [facility] Comment on above: Performed By: #### L [id number] #### [facility] [address] [place], [address] Sodium [Moles/Vol] 137 mmol/L Normal 133-145 [facility] Comment on above: Performed By: #### L [id number] #### [facility] [address] [place], [address] Urea nitrogen [Mass/Vol] 16 mg/dL Normal 4-19 [facility] Comment on above: Performed By: #### L [id number] #### [facility] [address] [place], [address] Carbon dioxide, total [Moles /volume] in Central venous bloodOrdered By: Greyson Camacho on 09-19-2024 CO2 [Moles/Vol] 23.6 mmol/L 21.0-32.0 [facility] Cardiology Visit Reporton Cardiology Visit Report [facility] [address] [place] [address] OFFICE VISIT Date of Service: 09/19/24 MR#: [id number] Acct: [id number] Name: FERN TAPIA Rep #: [id number] : 1955 Provider: Dr. Greyson Camacho MD Age/Sex: 69/M Location: [facility] Status: Signed HPI HPI History of Present Illness Details: Pleasant 69-year-old man with history of atrial flutter. He had been on the beta-heather anticoagulation and underwent a DC cardioversion over a year ago. He says that he has been doing well compliant with all his medications has had no cardiac symptomatology his last echocardiogram demonstrated ejection fraction of 55%. He walked into the office today [...] Monitor Intake Visit Reasons: 1 Y FU Traffic Supervisor Required: No Accompanied by: Self Is patient in pain?: No Allergies No Known Allergies Allergy (Verified 09/19/24 11:22) Medications ???Medication ???Instructions ???Recorded ???Confirmed ???Type lisinopril 20 1 ea PO DAILY 01/29/19 09/19/24 Hi story mg-hydrochlorothiazi de 12.5 mg tablet atorvastatin 20 mg tablet 20 mg PO QDAY 08/04/23 09/19/24 Hi story apixaban 5 mg tablet (Eliquis) 5 mg PO BID Pt to grape picker RX #[id number] 05/30/24 09/19/24 Rx tabs metoprolol tartrate 25 mg tablet 25 mg PO BID #180 tabs 06/17/24 Rx Have you fallen in the past [...] SOB at rest, SOB orthopnea SOB lying down or Cough GI GI: Negative [...] awake, patient oriented x3 and CN's II-XI intact bilaterally Skin Skin: no rashes or lesions noted Extremities Pulses: Normal: Right Posterior Tibial Pulse, Left Posterior Tibial Pulse, Right Radial Pulse and Left Radial Pulse Lower Extremity Edema: None: Bilateral Psych Psychological: normal affect Supplemental Info Supplemental Informa (more content not included)... Normal [facility] Chloride assayOrdered By: Kiran Camacho on 09-19-2024 Chloride [Moles/Vol] 101 mmol/L 98-108 [facility] Glomerular filtration rate ( GFR) estimation/1.73 sq m using serum, plasma, or whole bOrdered By: Greyson Camacho on 09-19-2024 GFR/1.73 sq M.predicted among non-blacks MDRD (S/P/Bld) [Vol rate/Area] 80 mL/min/{1.73_m2} >60 [facility] Comment on above: mL/min/1.73m2 CKD-EP I Creatinine Equation (2020) Potassium measurement (mass/ volume)Ordered By: Greyson Camacho on 09-19-2024 Potassium (Unsp spec) [Mass/Vol] 3.9 mmol/L 3.3-5.1 [facility] Serum creatinine measurement (mass/volume)Ordered By: Greyson Camacho on 09-19-2024 Creatinine [Mass/Vol] 1.01 mg/dL 0.70-1.20 [facility] Serum glucose measurement (m ass/volume)Ordered By: Greyson Doug on 09-19-2024 Glucose [Mass/Vol] 127 mg/dL High 70-99 [facility] Serum or plasma calcium kristen urement (mass/volume)Ordered By: Corrales Odug on 09-19-2024 Calcium [Mass/Vol] 9.1 mg/dL 7.6-11.0 [facility] Serum or plasma urea nitroge n measurement (mass/volume)Ordered By: Corrales Doug on 09-19-2024 Urea nitrogen [Mass/Vol] 16 mg/dL - [facility] Sodium levelOrdered By: Kiranri l Doug on 09-19-2024 Sodium [Moles/Vol] 137 mmol/L 133-145 [facility] PSA,Total- Diagnosticon 03-30 PSA, DIAGNOSTIC 0.11 ng/mL Normal 0.0-4.0 [facility] Comment on above: Result Comment: This test was performed using the TPSA assay method for the [employer] chemistry system. Values obtained with different assay methods cannot be used interchangably. When changing PSA assays in the course of monitoring a patient, additional sequential testing should be carried out to confirm baseline values. Performed By: #### L [id number] #### [facility] [place], [address] Basophil percentageOrdered B y: Janet Francisco on 04-11-2023 Basophil percentage 0.07 ng/mL 0.0-4.0 [facility] Comment on above: This test was perfor med using the TPSA assay method for theDidatuan chemistry system. Values obtained with differentassay methods cannot be used interchangably.When changing PSA assays in the course of monitoring apatient, additional sequential testing should be carriedout to confirm baseline values. Basophil percentageOrdered B y: Greyson Camacho on 02-14-2023 Chloride [Moles/Vol] 105 mmol/L 98-107 [facility] Glucose [Mass/Vol] 117 mg/dL 74-106 [facility] Comment on above: Fasting Glucose resu lt from 100 to 125 mg/dL suggests IMPAIRED HOMEOSTASIS per A.D.A. criteria. Potassium [Moles/Vol] 4.1 mmol/L 3.5-5.1 [facility] Sodium [Moles/Vol] 138 mmol/L 136-145 [facility] Laboratory - Chemistry and C hemistry - challengeOrdered By: Greyson Camacho on 02-14-2023 CO2 [Moles/Vol] 31.0 mmol/L 21.0-32.0 [facility] Urea nitrogen/Creatinine [Mass ratio] 11.9 mg/mg 10-20 [facility] No Panel InformationOrdered By: Greyson Camacho on 02-14-2023 Estimated GFR (MDRD) Amer 86 mL/min >60 [facility] Comment on above: GFR Calc Estimated GFR (MDRD) Non-Af Amer 71 mL/min >60 [facility] Comment on above: Non- GFR Calc Serum or plasma calcium kristen urement (mass/volume)Ordered By: Greyson Camacho on 02-14-2023 Calcium [Mass/Vol] 9.3 mg/dL 8.5-10.1 [facility] Serum or plasma creatinine m easurement (mass/volume)Ordered By: Greyson Camacho on 02-14-2023 Creatinine [Mass/Vol] 1.09 mg/dL 0.70-1.30 [facility] Comment on above: The validity of the calculated GFR & GFRAA in patients over 70 years has not been determined. Clinical correlation is essential. Serum or plasma urea nitroge n measurement (mass/volume)Ordered By: Greyson Camacho on 02-14-2023 Urea nitrogen [Mass/Vol] 13 mg/dL 7-18 [facility] Thin prep Papanicolaou smear with manual screeningOrdered By: Greyson Camacho on 02-14-2023 Thin prep Papanicolaou smear with manual screening 2 5-15 [facility] Basophil percentageOrdered B y: Diallo Walton on 12-29-2022 Bilirubin [Mass/Vol] 1.00 mg/dL 0.20-1.00 [facility] Comment on above: For patients on eltr ombopag therapy, use of Dimension Eclectic TBIL is not recommended. Chloride [Moles/Vol] 107 mmol/L 98-107 [facility] Cholesterol [Mass/Vol] 162 mg/dL <200 [facility] Comment on above: <200 mg/dL Desirable 200-240 mg/dL Borderline >240 mg/dL High Risk Glucose [Mass/Vol] 93 mg/dL 74-106 [facility] Potassium [Moles/Vol] 3.8 mmol/L 3.5-5.1 [facility] Protein [Mass/Vol] 7.0 g/dL 6.4-8.2 [facility] Sodium [Moles/Vol] 140 mmol/L 136-145 [facility] Triglyceride [Mass/Vol] 105 mg/dL <199 [facility] Comment on above: The drugs N-Acetylcy steine and Metamizole may falsely depress this assay.Serum Triglycerides Reference Interval Normal <150 mg/dL Borderline high 150 - 199 mg/dL High 200 - 499 mg/dL Very High > or = 500 mg/dL Laboratory - Chemistry and C hemistry - challengeOrdered By: Diallo Walton on 12-29-2022 ALP [Catalytic activity/Vol] 62 U/L 45-117 [facility] ALT [Catalytic activity/Vol] 31 U/L 16-61 [facility] CO2 [Moles/Vol] 25.0 mmol/L 21.0-32.0 [facility] Globulin (S) [Mass/Vol] 3.1 g/dL 2.2-4.2 [facility] Magnesium [Mass/Vol] 2.4 mg/dL 1.6-2.6 [facility] Urea nitrogen/Creatinine [Mass ratio] 13.3 mg/mg 10-20 [facility] No Panel InformationOrdered By: Diallo Walton on 12-29-2022 Estimated GFR (MDRD) Amer 90 mL/min >60 [facility] Comment on above: GFR Calc Estimated GFR (MDRD) Non-Af Amer 74 mL/min >60 [facility] Comment on above: Non- GFR Calc Thyroid Stimulating Hormone (TSH) 2.51 uIU/mL 0.358-3.74 [facility] Serum or plasma albumin kristen urement (mass/volume)Ordered By: Diallo Walton on 12-29-2022 Albumin [Mass/Vol] 3.9 g/dL 3.2-5.0 [facility] Serum or plasma albumin/glob ulin mass ratioOrdered By: Diallo Walton on 12-29-2022 Albumin/Globulin [Mass ratio] 1.3 {ratio} 0.9-2.4 [facility] Serum or plasma calcium kristen urement (mass/volume)Ordered By: Diallo Watlon on 12-29-2022 Calcium [Mass/Vol] 8.9 mg/dL 8.5-10.1 [facility] Serum or plasma cholesterol in HDL measurement (mass/volume)Ordered By: Diallo Walton on 12-29-2022 Cholesterol in HDL [Mass/Vol] 59 mg/dL >40 [facility] Comment on above: The drugs N-Acetylcy steine and Metamizole may falsely depress this assay. Reference Range HDL <40 mg/dL Low HDL Cholesterol HDL >or= 60 mg/dL High HDL Cholesterol Serum or plasma cholesterol in VLDL measurement (mass/volume)Ordered By: Diallo Walton on 12-29-2022 Cholesterol in VLDL [Mass/Vol] 21 mg/dL 5-40 [facility] Serum or plasma creatinine m easurement (mass/volume)Ordered By: Diallo Walton on 12-29-2022 Creatinine [Mass/Vol] 1.05 mg/dL 0.70-1.30 [facility] Comment on above: The validity of the calculated GFR & GFRAA in patients over 70 years has not been determined. Clinical correlation is essential. Serum or plasma low density lipoprotein (LDL) cholesterol measurement (mass/volume)Ordered By: Diallo Walton on 12-29-2022 Cholesterol in LDL [Mass/Vol] 82 mg/dL 0-130 [facility] Serum or plasma urea nitroge n measurement (mass/volume)Ordered By: Diallo Walton on 12-29-2022 Urea nitrogen [Mass/Vol] 14 mg/dL 7-18 [facility] Thin prep Papanicolaou smear with manual screeningOrdered By: Diallo Walton on 12-29-2022 Thin prep Papanicolaou smear with manual screening 14 U/L 15-37 [facility] Thin prep Papanicolaou smear with manual screening 8 5-15 [facility] No Panel InformationOrdered By: Houston Conklin on 07-13-2023 Prostate Specific Antigen Total 0.12 ng/mL 0.0-4.0 [facility] Comment on above: This test was perfor med using the TPSA assay method for theDimension chemistry system. Values obtained with differentassay methods cannot be used interchangably.When changing PSA assays in the course of monitoring apatient, additional sequential testing should be carriedout to confirm baseline values. No Panel InformationOrdered By: Dr. Conklin on 03-04-2022 Prostate Specific Antigen Total 0.08 ng/mL 0.0-4.0 [facility] Comment on above: This test was perfor med using the TPSA assay method for theDimension chemistry system. Values obtained with differentassay methods cannot be used interchangably.When changing PSA assays in the course of monitoring apatient, additional sequential testing should be carriedout to confirm baseline values. No Panel Informationon 08-17 Prostate Specific Antigen Total 0.08 ng/mL 0.0-4.0 [facility] Work Phone: Comment on above: This test was perfor med using the TPSA assay method for theDimension chemistry system. Values obtained with differentassay methods cannot be used interchangably.When changing PSA assays in the course of monitoring apatient, additional sequential testing should be carriedout to confirm baseline values. Robina 02-16-2019 HERNAN Gruber MICRO - Microbiology PROCEDURE: Urine Culture [*1] SOURCE: Urine, Clean Catch BODY SITE: COLLECTED DATE/TIME: 02/14/2019 14:54 EST RECEIVED DATE/TIME: 02/14/2019 20:12 EST START DATE/TIME: 02/14/2019 20:12 EST FREE TEXT SOURCE: FINAL REPORTS Final Report [] Verified Date/Time/Personnel: 02/16/2019 07:36 EST No growth at 48 hours. PRELIMINARY REPORTS Preliminary Report [] Verified Date/Time/Personnel: 02/15/2019 08:57 EST No growth to date Performing Locations *1: This test was performed at: [facility], [address] [place] [address], [id number] , [facility] ([place]) Comment on above: Performed By: #### C UR #### [address] [address] .Auto Diffon 02-14-2019 Ammonia (P) [Mass/Vol] 0.70 10 3/mcL Normal 0.15-1.00 [facility] ([place]) Comment on above: Performed By: #### C BC, ADIFF, ANEU #### [address] [address] #### BMP, GFR #### [address] [address] Basophils (Bld) [#/Vol] 0.00 10 3/mcL Normal 0.00-0.19 [facility] ([place]) Comment on above: Performed By: #### C STEVE, ADIFF, ANEU #### [place] [address] #### BMP, GFR #### [address] [address] Basophils/100 WBC (Bld) 0.3 % Normal 0.0-2.5 [facility] ([place]) Comment on above: Performed By: #### C BC, ADIFF, ANEU #### [place] [address] #### BMP, GFR #### [address] [address] Eosinophils (Bld) [#/Vol] 0.10 10 3/mcL Normal 0.00-0.40 [facility] ([place]) Comment on above: Performed By: #### C BC, ADIFF, ANEU #### [place] [address] #### BMP, GFR #### [address] [address] Eosinophils/100 WBC (Bld) 0.4 % Normal 0.0-7.0 [facility] ([place]) Comment on above: Performed By: #### C BC, ADIFF, ANEU #### [place] [address] #### BMP, GFR #### [address] [address] Lymphocytes (Bld) [#/Vol] 0.60 10 3/mcL Low 0.77-3.85 [facility] ([place]) Comment on above: Performed By: #### C BC, ADIFF, ANEU #### [address] [address] #### BMP, GFR #### [address] [address] Lymphocytes/100 WBC (Bld) 4.7 % Low 10.0-50.0 [facility] ([place]) Comment on above: Performed By: #### C BC, ADIFF, ANEU #### [address] [address] #### BMP, GFR #### [address] [address] Monocytes/100 WBC (Bld) 5.5 % Normal 1.7-13.0 [facility] ([place]) Comment on above: Performed By: #### C BC, ADIFF, ANEU #### [place] [address] [address] #### BMP, GFR #### [address] [address] Neutrophils/100 WBC (Bld) 89.1 % High 37.0-80.0 [facility] ([place]) Comment on above: Performed By: #### C BC, ADIFF, ANEU #### [address] [address] #### BMP, GFR #### [address] [address] .GFRon 02-14-2019 GFR 81 ml/min/1.73sqm Normal [facility] ([place]) Comment on above: Result Comment: GFR Population [...] Performed By: #### C BCADRIANE, ANEU #### [address] [address] #### BMP, GFR #### [address] [address] GFR Non- 66 ml/min/1.73sqm Normal [facility] ([place]) Comment on above: Result Comment: GFR Population [...] mL/min/1.73 square meters Performed By: #### C ADRIANE WILSON, ANEU #### [address] [address] #### BMP, GFR #### [address] [address] .NEUABSon 02-14-2019 Neutrophils (Bld) [#/Vol] 12.10 10 3/mcL High 2.85-6.16 [facility] ([place]) Comment on above: Performed By: #### C BCADRIANE, ANEU #### [address] [address] #### BMP, GFR #### [address] [address] .Urinalysis Microscopic (AO) on 02-14-2019 RBC (U) [#/Vol] 0-5 None Seen [facility] ([place]) Comment on above: Performed By: #### U A, UAMICAO #### [place] [address] UA Bacteria Trace [facility] ([place]) Comment on above: Performed By: #### U A, UAMICAO #### [place] [address] UA Fine Granular Casts 0-5 [facility] ([place]) Comment on above: Performed By: #### U A, UAMICAO #### [place] [address] UA Mucous 1+ /hpf Normal [facility] ([place]) Comment on above: Performed By: #### U A, UAMICAO #### [place] [address] UA Squam Epithelial 0-5 None Seen [facility] ([place]) Comment on above: Performed By: #### U A, UAMICAO #### [place] [address] UA WBC 0-5 None Seen [facility] ([place]) Comment on above: Performed By: #### U A, UAMICAO #### [place] [address] UA Yeast Trace [facility] ([place]) Comment on above: Performed By: #### U A, UAMICAO #### [place] [address] BMPon 02-14-2019 Calcium [Mass/Vol] 8.3 mg/dL Low 8.4-10.2 [facility] ([place]) Comment on above: Performed By: #### C BC, ADIFF, ANEU #### [address] [address] #### BMP, GFR #### [place] [address] Chloride [Moles/Vol] 103 mmol/L Normal 98-107 [facility] ([place]) Comment on above: Performed By: #### C BC, ADIFF, ANEU #### [address] [address] #### BMP, GFR #### [address] [address] CO2 [Moles/Vol] 25 mmol/L Normal 23-31 [facility] ([place]) Comment on above: Performed By: #### C BC, ADIFF, ANEU #### [address] [address] #### BMP, GFR #### [address] [address] Creatinine [Mass/Vol] 1.11 mg/dL Normal 0.70-1.30 [facility] ([place]) Comment on above: Performed By: #### C BC, ADIFF, ANEU #### [address] [address] #### BMP, GFR #### [address] [address] Electrolyte Balance 13.0 mEq/L Normal [facility] ([place]) Comment on above: Performed By: #### C BC, ADIFF, ANEU #### [address] [address] #### BMP, GFR #### [address] [address] Glucose [Mass/Vol] 142 mg/dL High 80-115 [facility] ([place]) Comment on above: Performed By: #### C BC, ADIFF, ANEU #### [address] [address] #### BMP, GFR #### [address] [address] Potassium [Moles/Vol] 3.9 mmol/L Normal 3.5-5.1 [facility] ([place]) Comment on above: Performed By: #### C BC, ADIFF, ANEU #### [address] [address] #### BMP, GFR #### [address] [address] Sodium [Moles/Vol] 141 mmol/L Normal 136-145 [facility] ([place]) Comment on above: Performed By: #### C BC, ADIFF, ANEU #### [address] [address] #### BMP, GFR #### [address] [address] Urea nitrogen [Mass/Vol] 16 mg/dL Normal 7-18 [facility] ([place]) Comment on above: Performed By: #### C BC, ADIFF, ANEU #### [address] [address] #### BMP, GFR #### [address] [address] Urea nitrogen/Creatinine [Mass ratio] 14 ratio Normal 7-27 [facility] ([place]) Comment on above: Performed By: #### C BC, ADIFF, ANEU #### [address] [address] #### BMP, GFR #### [address] [address] CBCon 02-14-2019 Erythrocyte distribution width (RBC) [Ratio] 13.8 % Normal 11.5-14.5 [facility] ([place]) Comment on above: Performed By: #### C BC, ADIFF, ANEU #### [address] [address] #### BMP, GFR #### [address] [address] Hematocrit (Bld) [Volume fraction] 27.6 % Low 42.0-52.0 [facility] ([place]) Comment on above: Performed By: #### C BC, ADIFF, ANEU #### [address] [address] #### BMP, GFR #### [address] [address] Hemoglobin (Bld) [Mass/Vol] 9.2 G/dL Low 14.0-18.0 [facility] ([place]) Comment on above: Performed By: #### C BC, ADIFF, ANEU #### [address] [address] #### BMP, GFR #### [address] [address] MCH (RBC) [Entitic mass] 30.8 pg Normal 27.0-31.2 [facility] ([place]) Comment on above: Performed By: #### C BC, ADIFF, ANEU #### [place] [address] #### BMP, GFR #### [address] [address] MCHC (RBC) [Mass/Vol] 33.5 G/dL Normal 31.8-35.4 [facility] ([place]) Comment on above: Performed By: #### C BC, ADIFF, ANEU #### [place] [address] #### BMP, GFR #### [address] [address] MCV (RBC) [Entitic vol] 92.1 fL Normal 80.0-94.0 [facility] ([place]) Comment on above: Performed By: #### C BC, ADIFF, ANEU #### [place] [address] #### BMP, GFR #### [address] [address] Platelet mean volume (Bld) [Entitic vol] 7.6 fL Normal 7.4-10.4 [facility] ([place]) Comment on above: Performed By: #### C BC, ADIFF, ANEU #### [place] [id number] #### BMP, GFR #### [address] [address] Platelets (Bld) [#/Vol] 509 10 3/mcL High 130-400 [facility] ([place]) Comment on above: Performed By: #### C BC, ADIFF, ANEU #### [place] [id number] #### BMP, GFR #### [address] [address] RBC (Bld) [#/Vol] 3.00 10 6/mcL Low 4.04-6.13 [facility] ([place]) Comment on above: Performed By: #### C BC, LEE ANNIFF, ANEU #### [address] [address] #### BMP, GFR #### [address] [address] WBC (Bld) [#/Vol] 13.50 10 3/mcL High 4.60-10.80 [facility] ([place]) Comment on above: Performed By: #### C BC, LEE ANNIFF, ANEU #### [address] [address] #### BMP, GFR #### [address] [address] [address] ABDOMEN/PELVIS W/O CONTRA STon 02-14-2019 CT ABDOMEN/PELVIS W/O CONTRAST ORIGINAL CT [...] 02/14/2019 3:40:00 PM Ordering Provider:Gopal King Normal [facility] ([place]) [facility] 02-14-2019 Color (U) Yellow Normal [facility] ([place]) Comment on above: Performed By: #### U A, UAMICAO #### [place] [address] Glucose (U) [Mass/Vol] Negative Normal Negative [facility] ([place]) Comment on above: Performed By: #### U A, UAMICAO #### [address] [address] Ketones Ql (U) Negative Normal Negative [facility] ([place]) Comment on above: Performed By: #### U A, UAMICAO #### [address] [address] UA Appear Clear Normal Clear [facility] ([place]) Comment on above: Performed By: #### U A, UAMICAO #### [address] [address] UA Blood Moderate Negative [facility] ([place]) Comment on above: Performed By: #### U A, UAMICAO #### [place] [address] UA Leuk Est Negative Normal Negative [facility] ([place]) Comment on above: Performed By: #### U A, UAMICAO #### [place] [address] UA Nitrite Negative Normal Negative [facility] ([place]) Comment on above: Performed By: #### U A, UAMICAO #### [place] [address] UA pH 6.0 Normal 5.0 - 8.0 [facility] ([place]) Comment on above: Performed By: #### U A, UAMICAO #### [place] [address] UA Protein Negative Normal Negative [facility] ([place]) Comment on above: Performed By: #### U A, UAMICAO #### [place] [address] UA Spec Grav 1.020 Normal 1.015-1.025 [facility] ([place]) Comment on above: Performed By: #### U A, UAMICAO #### [place] [address] UA Specimen Type Catheter Normal [facility] ([place]) Comment on above: Performed By: #### U A, UAMICAO #### [place] [address] UA Urobilinogen 1.0 E.U./dL Normal 0.2-1.0 [facility] ([place]) Comment on above: Performed By: #### U A, UAMICAO #### [place] [address] Urobilinogen Qn (U) Negative Normal Negative [facility] ([place]) Comment on above: Performed By: #### U A, UAMICAO #### [place] [address] Office Visit: Spine Visit- N EWon 07-07-2016 Alcoholism counseling (procedure) no Invalid Interpretation Code [facility] Work Phone: Dietary management education, guidance, and counseling (procedure) yes Invalid Interpretation Code [facility] Work Phone: Documentation of current medications (procedure) Done Invalid Interpretation Code [facility] Work Phone: Smoking cessation education (procedure) yes Invalid Interpretation Code [facility] Work Phone: Tobacco smoking status NHIS Never Invalid Interpretation Code [facility] Work Phone: Tobacco use HS Current every day smoker Invalid Interpretation Code [facility] Work Phone: Vital Signs Date Time Vital Sign Value Performing Clinician Faci mo 09-20-2024 07:23-0400 Body height [address] Darin Walton MD Work Phone: [facility] 09-20-2024 07:23-0400 Body weight 96.[address] Darin Walton MD Work Phone: [facility] 09-19-2024 14:10-0400 Body mass index (BMI) [Ratio] 30.3 kg/m2 Dr. Darin Walton MD Work Phone: [facility] 09-19-2024 11:19-0400 Body height 177.[address] Darin Walton MD Work Phone: [facility] 09-19-2024 11:19-0400 Body mass index (BMI) [Ratio] 30.4 kg/m2 Dr. Darin Walton MD Work Phone: [facility] 09-19-2024 11:19-0400 Body weight 96.[address] Darin Walton MD Work Phone: [facility] 09-19-2024 11:19-0400 Diastolic blood pressure 82 mm[Hg] Dr. Darin Walton MD Work Phone: [facility] 09-19-2024 11:19-0400 Heart rate 142 /min Dr. Darin Walton MD Work Phone: [facility] 09-19-2024 11:19-0400 Respiratory rate 16 /min Dr. Darin Walton MD Work Phone: [facility] 09-19-2024 11:19-0400 Systolic blood pressure 120 mm[Hg] Dr. Darin Walton MD Work Phone: [facility] 03-02-2023 11:02-0500 Body height 177.[address] Diallo Walton Work Phone: [facility] 03-02-2023 11:02-0500 Body weight 95.[address] Diallo Walton Work Phone: [facility] 03-01-2023 09:35-0500 Body mass index (BMI) [Ratio] 30.1 kg/m2 Dr. Diallo Walton Work Phone: [facility] 01-25-2023 10:32-0500 Body mass index (BMI) [Ratio] 29.7 kg/m2 Dr. Diallo Walton Work Phone: [facility] 01-25-2023 10:32-0500 Body weight 95.[address] Diallo Walton Work Phone: [facility] 01-25-2023 10:32-0500 Diastolic blood pressure 93 mm[Hg] Dr. Diallo Walton Work Phone: [facility] 01-25-2023 10:32-0500 Heart rate 71 /min Dr. Diallo Walton Work Phone: [facility] 01-25-2023 10:32-0500 Respiratory rate 14 /min Dr. Diallo Walton Work Phone: [facility] 01-25-2023 10:32-0500 Systolic blood pressure 133 mm[Hg] Dr. Diallo Walton Work Phone: [facility] 07-07-2016 10:32-0400 BMI (Body Mass Index) 29.53 kg/m2 [facility] Work Phone: 07-07-2016 10:32-0400 BP Diastolic 56 mm[Hg] Gemma Bairdimes [facility] Work Phone: 07-07-2016 10:32-0400 BP Systolic 145 mm[Hg] Gemma Bairdimes [facility] Work Phone: 07-07-2016 10:32-0400 Height 175.26 cm Gemma Bairdimes [facility] Work Phone: 07-07-2016 10:32-0400 Weight 90.72 kg Gemma Bairdimes [facility] Work Phone: Encounters Encounter Date Encounter Type Care Provider Facility Start: 09-27-2024 End: 09-27-[address] Greyson Camacho MD -[facility] Work Phone: Start: 09-27-2024 End: 09-27-[address] Darin Walton MD Work Phone: [facility] Start: 09-20-2024 ambulatory Jasper Mckinley Facility:[facility] Start: 09-20-2024 Non-patient / Non-visit Dr. Jasper Mckinley -[facility] Start: 09-20-2024 End: 09-20-2024 Admission to same day surgery center Dr. Greyson Camacho MD -[facility] Work Phone: Start: 09-20-2024 End: 09-20-[address] Darin Walton MD Work Phone: -[facility] Start: 09-19-2024 End: 09-19-[address] Greyson Camacho MD -[facility] Work Phone: Start: 09-19-2024 End: 09-19-[address] Darin Walton MD Work Phone: -[facility] Start: 09-19-2024 End: 09-19-2024 ambulatory Greyson Camacho Facility:[facility] Start: 04-15-2024 End: 04-15-2024 ambulatory Houston Conklin Facility:[facility] Start: 04-11-2023 End: 04-11-[address] Diallo Walton Work Phone: [facility] Work Phone: Start: 04-11-2023 End: 04-11-[address] Diallo Walton Work Phone: [facility] Work Phone: Start: 03-09-2023 End: 03-09-[address] Diallo Walton Work Phone: [facility] Work Phone: Start: 03-02-2023 Non-patient / Non-visit Dr. Diallo Walton Work Phone: [facility] Start: 03-02-2023 End: 03-02-2023 Admission to same day surgery center Dr. Diallo Walton Work Phone: [facility] Work Phone: Start: 03-02-2023 End: 03-02-[address] Diallo Walton Work Phone: [facility] Work Phone: Start: 03-01-2023 Non-patient / Non-visit Dr. Diallo Walton Work Phone: [facility] Work Phone: Start: 03-01-2023 Non-patient / Non-visit Dr. Diallo Walton Work Phone: [facility] Start: 03-01-2023 End: 03-01-[address] Diallo Walton Work Phone: [facility] Work Phone: Start: 03-01-2023 End: 03-01-[address] Diallo Walton Work Phone: [facility] Work Phone: Start: 02-14-2023 Non-patient / Non-visit Dr. Diallo Walton Work Phone: [facility] Start: 01-25-2023 End: 01-25-[address] Diallo Walton Work Phone: [facility] Work Phone: Start: 12-29-2022 End: 12-29-2022 ambulatory [facility] Work Phone: Start: 12-29-2022 End: 12-29-2022 Patient encounter procedure [facility], [facility] Start: 09-08-2022 End: 09-08-2022 ambulatory [facility] Work Phone: Start: 09-08-2022 End: 09-08-2022 Patient encounter procedure [facility] Work Phone: Start: 03-04-2022 End: 03-04-2022 ambulatory [facility] Work Phone: Start: 03-04-2022 End: 03-04-2022 Patient encounter procedure [facility] Start: 08-17-2021 End: 08-17-2021 Patient encounter procedure [facility] Procedures Date Procedure Procedure Detail Performing Clinician Start: 07-07-2016 End: 07-07-2016 Chiropractic manipulation Jahaira Hutchins Dossi DC Work Phone: Start: 07-07-2016 End: 07-07-2016 Electric stimulation therapy Jahaira Hutchins Dossi DC Work Phone: Start: 07-07-2016 End: 07-07-2016 Mechanical traction therapy Jahaira Hutchins Dossi DC Work Phone: Start: 07-07-2016 End: 07-07-2016 X-ray exam of lower spine Jahaira B Dossi DC Work Phone: Plan of Treatment Date Care Activity Detail Author Start: 10-18-2024 ambulatory Ambulatory Facility:[facility] Start: 09-27-2024 Evaluation of diagno stic study results [facility] Start: 09-20-2024 Patient discharge [facility] Start: 09-19-2024 Basic metabolic 2008 panel with ionized calcium - Serum or Plasma [facility] Start: 09-19-2024 Evaluation of diagno stic study results [facility] Start: 03-02-2023 Patient discharge [facility] Start: 07-21-2016 End: 07-21-2016 Appointment [...] Phone: Anion gap in Serum or Plasma [facility] BUN/Creatinine ratio [facility] Calcium [Mass/volume ] in Serum or Plasma [facility] Carbon dioxide, tota l [Moles/volume] in Central venous blood [facility] [facility] Cardioversion [facility] Creatinine [Mass/vol ume] in Serum or Plasma [facility] Glucose [Mass/volume ] in Serum or Plasma [facility] Measurement of renal function [facility] Patient referral [facility] Work Phone: Potassium measurement [facility] Serum chloride measurement [facility] Sodium measurement [facility] Urea nitrogen [Mass/ volume] in Serum or Plasma [facility] Immunizations Immunization Date Immunization Notes Care Provider Eileen kapadia 01-07-2019 Influenza virus vaccine [facility] Payers Date Payer Category Payer Self-pay [id number] 2023 Medicare [id number] Medicare [id number] Unknown [id number] Unknown [id number] Unknown [id number] 2.16.8 [id number] Unknown [id number] 2.16.8 [id number] Unknown [id number] 2.16.8 [id number] Unknown [id number] 2.16.8 [id number] Unknown [id number] 2.16.8 [id number] Unknown [id number] 2.16.8 [id number] Unknown [id number] 2.16.8 [id number] Unknown [id number] 2.16.8 [id number] Social History Date Type Detail Facility Start: 01-29-2019 End: 03-02-2023 Tobacco smoking status NHIS Unknown if ever smoked [facility] Start: 01-29-2019 Cigarettes [facility] Start: 1955 Sex Assigned At Male [facility] Start: 08-04-2023 End: 09-20-2024 Tobacco smoking status NHIS Ex-smoker (finding) [facility] Medical Equipment Procedure Code Equipment Code Equipment Origin al Text Equipment Identifier Dates NEVIN MORA LG FDA Start: 02-06-2019 NEVIN MORA LG FDA Start: 02-06-2019 NEVIN MORA FDA Start: 02-06-2019 ABBYSOYFELICITA BALDWIN FDA Start: 02-06-2019 ABBYSOYFELICITA BALDWIN FDA Start: 02-06-2019 NEVIN MORA FDA Start: 02-06-2019 NEVIN MORA FDA Start: 02-06-2019 SEALANT,FLOSEAL HEMOSTATIC 5ML FDA Start: 02-06-2019 NEVIN MORA LG FDA Start: 02-06-2019 NEVIN MORA LG FDA Start: 02-06-2019 NEVIN MORA FDA Start: 02-06-2019 ABBYSOYFELICITA BALDWIN FDA Start: 02-06-2019 NEVIN MORA FDA Start: 02-06-2019 NEVIN MORA FDA Start: 02-06-2019 ABBYSOYFELICITA BALDWIN FDA Start: 02-06-2019 SEALANT,FLOSEAL HEMOSTATIC 5ML FDA Start: 02-06-2019 NEVIN MORA LG FDA Start: 02-06-2019 NEVIN MORA LG FDA Start: 02-06-2019 ABBYSOYFELICITA BALDWIN FDA Start: 02-06-2019 ABBYSOYFELICITA BALDWIN FDA Start: 02-06-2019 NEVIN MORA FDA Start: 02-06-2019 NEVIN MORA FDA Start: 02-06-2019 ABBYSOYFELICITA BALDWIN FDA Start: 02-06-2019 SEALANT,FLOSEAL HEMOSTATIC 5ML FDA Start: 02-06-2019 NEVIN MORA LG FDA Start: 02-06-2019 NEVIN MORA LG FDA Start: 02-06-2019 ABBYLEONARDANILA Freda BALDWIN FDA Start: 02-06-2019 ABBYSOYFELICITA Freda BALDWIN FDA Start: 02-06-2019 ABBYSOYFELICITA Freda BALDWIN FDA Start: 02-06-2019 ABBYSOYFELICITA Freda BALDWIN FDA Start: 02-06-2019 ABBYLEONARDANILA Freda BALDWIN FDA Start: 02-06-2019 SEALANT,FLOSEAL HEMOSTATIC 5ML FDA Start: 02-06-2019 ABBYSOYFELICITA BALDWIN FDA Start: 02-06-2019 ABBYSOYFELICITA BALDWIN FDA Start: 02-06-2019 ABBYLEONARDANILA Freda BALDWIN FDA Start: 02-06-2019 ABBYSOYFELICITA Freda BALDWIN FDA Start: 02-06-2019 ABBYLEONARDANILA Freda BALDWIN FDA Start: 02-06-2019 ABBYLEONARDANILA Freda BALDWIN FDA Start: 02-06-2019 ABBYLEONARDANILA Freda BALDWIN FDA Start: 02-06-2019 SEALANT,FLOSEAL HEMOSTATIC 5ML FDA Start: 02-06-2019 ABBYSOYFELICITA BALDWIN FDA Start: 02-06-2019 ABBYSOYFELICITA BALDWIN FDA Start: 02-06-2019 ABBYLEONARDANILA Freda BALDWIN FDA Start: 02-06-2019 ABBYLEONARDANILA Freda BALDWIN FDA Start: 02-06-2019 ABBYLEONARDANILA Freda BALDWIN FDA Start: 02-06-2019 ABBYLEONARDANILA Freda BALDWIN FDA Start: 02-06-2019 ABBYLEONARDANILA Freda BALDWIN FDA Start: 02-06-2019 SEALANT,FLOSEAL HEMOSTATIC 5ML FDA Start: 02-06-2019 ABBYSOYFELICITA BALDWIN FDA Start: 02-06-2019 ABBYHEMFELICITA EDOUARD WEANILA FDA Start: 02-06-2019 ABBYSOYFELICITA Freda BALDWIN FDA Start: 02-06-2019 ABBYSOYFELICITA Freda BALDWIN FDA Start: 02-06-2019 ABBYSOYFELICITA Freda BALDWIN FDA Start: 02-06-2019 ABBYSYOFELICITA Freda BALDWIN FDA Start: 02-06-2019 ABBYLEONARDANILA Freda BALDWIN FDA Start: 02-06-2019 SEALANT,FLOSEAL HEMOSTATIC 5ML FDA Start: 02-06-2019 ABBYSOYFELICITA EDOUARD WEANILA FDA Start: 02-06-2019 ABBYSOYFELICITA BALDWIN FDA Start: 02-06-2019 ABBYSOYFELICITA Freda BALDWIN FDA Start: 02-06-2019 ABBYSOYFELICITA Freda BALDWIN FDA Start: 02-06-2019 ABBYSOYFELICITA Freda BALDWIN FDA Start: 02-06-2019 ABBYSOYFELICITA Freda BALDWIN FDA Start: 02-06-2019 ABBYSOYFELICITA Freda BALDWIN FDA Start: 02-06-2019 SEALANT,FLOSEAL HEMOSTATIC 5ML FDA Start: 02-06-2019 NEVIN MORA LG WEANLIA FDA Start: 02-06-2019 ABBYSOYFELICITA BALDWIN FDA Start: 02-06-2019 ABBYSOYFELICITA Freda BALDWIN FDA Start: 02-06-2019 ABBYSOYFELICITA Freda BALDWIN FDA Start: 02-06-2019 ABBYSOYFELICITA Freda BALDWIN FDA Start: 02-06-2019 ABBYSOYFELICITA Freda BALDWIN FDA Start: 02-06-2019 ABBYLEONARDANILA ME Freda BALDWIN FDA Start: 02-06-2019 SEALANT,FLOSEAL HEMOSTATIC 5ML FDA Start: 02-06-2019 ABBYSOYFELICITA EDOUARD WEANILA FDA Start: 02-06-2019 ABBYSOYFELICITA BALDWIN FDA Start: 02-06-2019 ABBYSOYFELICITA Freda BALDWIN FDA Start: 02-06-2019 ABBYSOYFELICITA Freda BALDWIN FDA Start: 02-06-2019 ABBYSOYFELICITA D DENNY FDA Start: 02-06-2019 ABBYSOYFELICITA D DENNY FDA Start: 02-06-2019 ABBYSOYFELICITA D DENNY FDA Start: 02-06-2019 SEALANT,FLOSEAL HEMOSTATIC 5ML FDA Start: 02-06-2019 ABBYSOYFELICITA EDOUARD WEANILA FDA Start: 02-06-2019 ABBYHEMFELICITA BALDWIN FDA Start: 02-06-2019 ABBYSOYFELICITA Freda WEANILA FDA Start: 02-06-2019 ABBYSOYFELICITA Barba WEANILA FDA Start: 02-06-2019 ABBYSOYFELICITA D WEANILA FDA Start: 02-06-2019 NEVIN MORA FDA Start: 02-06-2019 NEVIN MORA FDA Start: 02-06-2019 SEALANT,FLOSEAL HEMOSTATIC 5ML FDA Start: 02-06-2019 Clinical Notes 02-14-2023 to 09-20-2024 Note Date & Type Note Facility 09-20-2024 Procedure note [facility] 09-20-2024 Procedure note [facility] 09-19-2024 Evaluation note Diagnosis Onset Date Resolution Atrial flutter acute September 19, 2024 11:18am Benign essential hypertension acute September 19, 2024 11:18am [facility] Work Phone: 1(287) 709-968207-24-2025 Progress [facility] [place] [address] OFFICE VISIT Date of Service: 09/19/24 MR#: [id number] Acct: [id number] Name: FERN TAPIA Rep #: [id number] : 1955 Provider: Dr. 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 Normal inferior vena cava. [...] have had a recurrence of the above. [id number] score: 2 (age, HTN) (2.2% stroke risk) Atrial fibrillation/flutter stage: 3A, paroxysmal 12 Lead EC03/09/2023-sinus bradycardia 55 bpm DCCV: 03/01/2023 Echocardiogram: 03/01/2023-EF: 55%, normal left atrium, normal right atrium size Heart Rate Control: Metoprolol tartrate 25 mg p.o. twice daily I will increase the above dose to 50mg twice a day until he undergoes DC [...] Today I48.92 - Unspecified atrial flutter, R00.0 - Tachycardia, unspecified Basic Metabolic Profile (BMP) Today I48.92 - Unspecified atrial flutter Cardioversion Today I48.92 - Unspecified atrial flutter Plan Details Additional Comments: Thank you for allowing us to participate in the patients plan of care, if you have any questions please do not hesitate to call. This note was generated using a voice recognition system and there may be incorrect words, spellingor punctuation that were not noted when reviewing [...] in the past year?: No 09/19/24 1146 D> Date _ [facility] Signature: Date (if applicable) CC: Dr. Darin Walton MD ~ [facility]07-24-2025 Progress note Author Greyson Camacho [facility] Services Note Date/Time September 19, 2024 11:4 6am [facility] [address] [place] [address] OFFICE VISIT Date of Service: 09/19/24 MR#: [id number] Acct: [id number] Name: FERN TAPIA Rep #: [id number] : 1955 Provider: Dr. 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 [id number] score: 2 (age, HTN) (2.2% stroke risk) [...] signed by Greyson Barba> Date _ Greyson Camacho MD [facility] Signature: Date (if applicable) CC: Dr. Darin Walton MD ~ [employer] Work Phone: 1(781) 206-556501-04-[address] [facility] 03-02-[address] [facility]12-19-2023 History and physical note Author Greyson Camacho [facility] February 14, 2023 1:33pm Note Date/Time February 14, 2023 1:04pm [facility] Medical Records Department [address] [place] [address] History & Physical Exam 02/14/23 1301 MR#: [id number] Acct: [id number] Name: FERN TAPIA Rep #:[id number] : 1955 67 From: Greyson Camacho MD PCP: Dr. Diallo Walton MD Status: [facility] Location: [facility] History and Physical Date of Admission: [...] EMR Allergies See EMR Medications See EMR PFS Medical History Atrial flutter Benign essential hypertension [...] which is unclear at this time. His POL0AS1-OKDx score is at least 2 and my recommendation at this time will be to continue with anticoagulation and attempt DC cardioversion. Therisk benefits alternatives have been explained to him and his they understand and agree to proceed. 02/14/23 1333 <Electronically signed by Greyson Camacho MD> Cosigner Signature (if applicable): 02/14/23 1304 <Electronically signed by Melany WALLACE> CC: RODRIGO Salmeron; Dr. Diallo Walton MD; Dr. Greyson aCmacho MD~ Signed [facility] Work Phone: Evaluation noteNo assessment information available [facility] Work Phone: Evaluation note* Diagnosis Onset Date Resolution Status Atrial flutter acute Benign essential hypertension acute [facility] Work Phone: Evaluation note* Diagnosis Onset Date Resolution Status Admit Date Atrial flutter acute September 19, 2024 11:18am Benign essential hypertension acute September 19, 2024 11:18am [facility] Work Phone: Reason for referral (narrative)No reason for referral information available[facility] Work Phone: Summary Purpose Family History No Family History Records Found Relationship Condition Age at Onset Recorded Date/T anu father Cardiac disease Unknown Advance Directives No Advanced Directives Records Found Advance Directive Response Recorded Date/ Time Living Will Yes February 06, 019 2:59pm Power of Condominium Association Manager Yes February 06, 2019 2:59pm Advance Directive Response Recorded Date/ Time Living Will Yes February 06, 019 1:59pm Power of Condominium Association Manager Yes February 06, 2019 1:59pm Advance Directive Response Recorded Date/ Time Advance Directives on File No Tessy 2023 11:02am Name of Medical Power of Condominium Association Manager Mari Wolff er- Spouse March 02, 2023 11:02am Advance Directives Yes March 02, 2023 11:02am Living Will Yes March 02 11:02am Power of Condominium Association Manager Yes March 02 11:02am Advance Directive Response Recorded Date/ Time Living Will Yes March 02 12:02pm Do you have a Healthcare Power of Condominium Association Manager? Yes March 02, 2023 12:02pm Advance Directives Yes March 02, 2023 12:02pm Advance Directive Response Recorded Date/ Time Living Will Yes March 02 12:02pm Do you have a Healthcare Pow er of Condominium Association Manager? Yes March 02, 2023 12:02pm Advance Directives on File Yes September 20, 2024 7:23am Living Will Yes September 20, 2024 7:23am Do you have a Healthcare Pow er of Condominium Association Manager? Yes September 20, 2024 7:23am Name of Medical Power of Condominium Association Manager Mari Wolff er- September 20, 2024 7:23am Advance Directives Yes September 20 7:23am Chief Complaint and Reason for Visit Chief [...] hypertension Chief Complaint Admit Date 1 Y September 19, 2024 11:1 8am Reason for Visit Admit Date Atrial flutter September 19, 2024 11:1 8am Benign essential hypertension September 19, 2024 11:18am Chief Complaint Admit Date 1 Y September 19, 2024 11:1 8am AFIB September 20, 2024 6:40 am Atrial fibrillation September 20, 2024 8:12 am Atrial fibrillation September 20, 2024 8:29 am Chief Complaint Admit Date 1 Y September 19, 2024 11:1 8am AFIB September 20, 2024 6:40 am Atrial fibrillation September 20, 2024 8:12 am Atrial fibrillation September 20, 2024 8:29 am 1 W DCCV September 27, 2024 9:0 1am Additional Source Comments (unrecognized sect ion and content) No Status Records FoundNo Status Records Found INFORMATION SOURCE (unrecogn ized section and content) DATE CREATED AUTHOR 02/16/2019 [facility] ([place]) DATE CREATED AUTHOR AUTHOR'S ORGANIZ ATION 10/14/2024 [facility] Goals (unrecognized section and [...] Primary Care Provider Activ e Melany Salmeron MULTIFOCAL LENS INSPECTOR, MULTIFOCAL LENS INSPECTOR-C Attending Provider Active Team Status: Active Member Role Status Dates Dr. Diallo Walton MD Primary Care Provider Activ e Dr. Greyson Camacho MD Referring Provider, Other Provide r Active Dr. Alan Simmons MD Attending Provider Active Team Status: Inactive Member Role Status Dates Dr. Diallo Walton MD Primary Care Provider Activ e Dr. Greysno Camacho MD Attending Provider, Referring Pro vider [...] Provider Active S tart: September 19, 2024 Team Status: Inactive Member Role/Relationship Status Dates Dr. Darin Walton MD Primary Care Provider Acti ve Start: September 20, 2024 End: September 20, 2024 Dr. Greyson Camacho MD Attending Provider Active S tart: September 20, 2024 End: September 20, 2024 Dr. Greyson Camacho MD Referring Provider Active S tart: September 20, 2024 End: September 20, 2024 Team Status: Active Member Role/Relationship Status Dates Dr. Darin Walton MD Primary Care Provider Acti ve Start: September 20, 2024 Dr. Greyson Camacho MD Attending Provider Active S tart: September 20, 2024 Dr. Greyson Camacho MD Referring Provider Active S tart: September 20, 2024 Dr. Greyson Camacho MD Other Provider Active Start : September 20, 2024 Team Status: Active Member Role/Relationship Status Dates Dr. Darin Walton MD Primary Care Provider Acti ve Start: September 20, 2024 Dr. Greyson Caamcho MD Referring Provider Active S tart: September 20, 2024 Dr. Greyson Camacho MD Other Provider Active Start : September 20, 2024 Dr. Jasper Mckinley DO Attending Provider Active S tart: September 20, 2024 Team Status: Inactive Member Role/Relationship Status Dates Dr. Darin Walton MD Primary Care Provider Acti ve Start: September 19, 2024 End: September 19, 2024 Dr. Greyson Camacho MD Attending Provider Active S tart: September 19, 2024 End: September 19, 2024 Dr. Greyson Camacho MD Referring Provider Active S tart: September 19, 2024 End: September 19, 2024 Team Status: Inactive Member Role/Relationship Status Dates Dr. Darin Walton MD Primary Care Provider Acti ve Start: September 27, 2024 End: September 27, 2024 Dr. Darin Walton MD Referring Provider Active Start: September 27, 2024 End: September 27, 2024 Dr. Greyson Camacho MD Attending Provider Active S tart: September 27, 2024 End: September 27, 2024 FOR RECORDS PERTAINING TO PATIENTS WHO [...] BE BASED ON THE PRIMARY CLINICAL RECORDS. [employer] provides no warranty or guarantee of the accuracy or completeness of information in this document.
== END | disposition home or self-care (01) ==
LOC: LAB 09:39
PROVIDERS: PCP Family Medicine; Referring Provider Urology; Visit Provider Urology
DX: C61 Malignant neoplasm of prostate (principal); R73.01 Impaired fasting glucose
CPT/HCPCS: 36415; 80053; 80061; 84153

== ENCOUNTER 2024-10-18 17:32 | Observation (INO) | payer MEDICARE, SELFPAY ==
[2024-10-17 11:21] VITALS: BMI 30.4
[2024-10-18] VITALS (11 sets, daily range): BP systolic 102–133; BP diastolic 65–79; PULSE 57–79; RESP 15–18; TEMP 36.3–36.6; O2SAT 93–100; BMI 29.6
--- OUTSIDE RECORDS SUMMARY | 2024-10-18 07:26 | XMS RPT_ITS | CCD ---
Author Organization [facility] Care Team Providers Care Outside Contractor Sales Name Role Phone Gemma Brower R Unavailable Unavailable Gemma Brower R Unavailable Unavailable Gemma Brower R Unavailable Unavailable Dr. Diallo Walton Primary Care Provider [phone] Dr. Diallo Walton Referring Provider Dr. Greyson Camacho Attending Provider [phone] Greyson Camacho Referring Provider [phone] Greyson Camacho Other Provider Jaron SORENSON, RODRIGO Mosley Attending Provider Dr. Alan Simmons Attending [facility] Isabel[facility] W[facility], Dr. Webster Primary Care Provider Dr. Darin Walton MD Referring Provider Dr. Greyson Camacho MD Attending Provider [phone] Dr. Greyson Camacho MD Referring Provider [phone] Greyson Camacho MD Other Provider Dr. Jasper Mckinley DO Attending Provider Greyson Camacho Consulting Unavailable Greyson Camacho Attending Unavailable Greyson Camacho Referring Unavailable Darin Walton Primary Care Unavailable Doug, Leon Consulting Unavailable Darin Walton Primary Care Unavailable Jasper Mckinley Attending Unavailable Doug, Greyson Referring Unavailable Darin Walton Referring Unavailable DougGreyson alas Attending Unavailable Darin Walton Primary Care Unavailable Darin Walton Primary Care Unavailable Darin Walton Referring Unavailable Doug, Greyson Attending Unavailable [facility] Unavailable Doug, Leon Referring Unavailable Doug, Leon Attending Unavailable Doug, Greyson Attending Unavailable Doug, Leon Referring [facility]available [facility] Unavailable [facility] Primary Care Unavailable SatMohsen mcdonalda Attending Unavailable SatSally mcdonaldGood Referring Unavailable [facility] Unavailable Houston Conklin Attending Unavailable Houston Conklin Referring Unavailable [facility] Unavailable Houston Conklin Attending Unavailable Houston Conklin Referring Unavailable Medications Current Medications Medication Drug Class(es) [...] EACH PO DAILY January 29, 2019 12:00am Gjsxirkk-Owe-Jq-Lycopen-Lute in (2 sources) Start: 01-29-2019 Mtjdourh-Xps-Qd-Lycopen-Lute in Active 1 EACH PO DAILY January 29, 2019 12:00am Start: 01-29-2019 Fqaclkfy-Jtd-Q x-Vjckjfd-Qqsjpq Active 1 EACH PO DAILY January 29, [...] EACH PO EVERY 4 HOURS NEEDED 14 February 06, 2019 February 13, 2019 12:12am apixaban 5 mg oral tablet (20 sources) Factor Xa Inhibitor Start: 01-25-2023 End: 05-30-2024 take 1 tablet by mouth twice daily Apixaban (Eliquis) 5 mg tablet Discontinued 5 mg PO TWICE A DAY 360 1 May 29, 2023 1:55pm May 30, 2024 3:39pm 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 81 mg delayed release oral [...] 07-07-2016 GABAPENTIN 100 MG CAPS daily GABAPENTIN [id number] Gemma Brower lisinopril 20 mg oral tablet (3 sources) Angiotensin Converting Enzyme Inhibitor Start: 07-07-2016 LISINOPRIL 20 MG TABS daily LISINOPRIL [id number] Gemma Brower meloxicam 15 mg oral tablet (3 sources) Nonsteroidal Anti-inflammatory Drug Start: 07-07-2016 MOBIC 15 MG TABS MELOXICAM [id number] Gemma Brower metoprolol tartrate 25 mg oral tablet (20 sources) beta-Adrenergic Heather Start: 05-26-2023 End: 06-17-2024 take 1 tablet by mouth twice daily Metoprolol Tartrate 25 mg tablet Discontinued 25 mg PO TWICE A DAY 180 3 May 31, 2024 8:07am June 17, 2024 [...] 11, 2023 1:00am January 25, 2023 11:38am Gu-Uwe-Ogxmn-N2-Tvjwmyh-Zekb in (5 sources) Start: 01-29-2019 End: 01-25-2023 Vf-Xpa-Mtnmc-P4-Yvbkcbe-Dxpb in Discontinued 1 EACH PO DAILY January 29, 2019 12:00am January 25, 2023 10:37am Start: 01-29-2019 Jp-Dgu-Omluw-K 8-Yqkcbgn-Lfombb Active 1 EACH PO DAILY January 29, 2019 12:00am Start: 01-29-2019 Ja-Lcn-Pszuo-K 4-Ujwrwpi-Wbfahe Active 1 EACH PO DAILY January 29, 2019 1:00am Ha-Gse-Jbdej-G0-Xsavifb-Ktoj in 1 EACH tablet (4 sources) Start: 01-29-2019 End: 01-25-2023 take 1 tablet by mouth once daily Ia-Ork-Ljugs-G7-Ouolyex-Zyyuft 1 EACH tablet Discontinued 1 NMA PO [...] 07-07-2016 SIMVASTATIN 10 MG TABS daily SIMVASTATIN [id number] Gemma R Brower Problems Active Problems Problem Classification Problem Date Documented Date Episodic/Chronic Cancer of prostate (2 sources) Malignant neoplasm of prostate; Translations: [Malignant neoplasm [...] Test Name Value Interpretation Reference Range Facility Comprehensive Metabolic Prof vtlevi 10-14-2024 Albumin [Mass/Vol] 4.5 g/dL Normal 3.4-4.8 [facility] Comment on above: Order Comment: Order Date: 07/08/24 Order Info: 0786-1 - CMP Order Info: [id number] - LIPID Performed By: #### L 500.4100, L500.4050 #### [facility] [address] [place], [address] Albumin/Globulin [Mass ratio] 1.7 {ratio} Normal 0.9-2.4 [facility] Comment on above: Order Comment: Order Date: 07/08/24 Order Info: 0786-1 - CMP Order Info: [id number] - LIPID Performed By: #### L 500.4100, L500.4050 #### [facility] [address] [place], [address] ALK PHOS 69 U/L Normal 40-129 [facility] Comment on above: Order Comment: Order Date: 07/08/24 Order Info: 0786-1 - CMP Order Info: [id number] - LIPID Performed By: #### L 500.4100, L500.4050 #### [facility] [address] [place], [address] ALT [Catalytic activity/Vol] 25 U/L Normal <=46 [facility] Comment on above: Order Comment: Order Date: 07/08/24 Order Info: 0786-1 - CMP Order Info: [id number] - LIPID Performed By: #### L 500.4100, L500.4050 #### [facility] [address] [place], [address] AST [Catalytic activity/Vol] 21 U/L Normal <=37 [facility] Comment on above: Order Comment: Order Date: 07/08/24 Order Info: 0786-1 - CMP Order Info: [id number] - LIPID Performed By: #### L 500.4100, L500.4050 #### [facility] [address] [place], [address] Bilirubin [Mass/Vol] 1.00 mg/dL Normal 0.00-1.30 [facility] Comment on above: Order Comment: Order Date: 07/08/24 Order Info: 0786-1 - CMP Order Info: [id number] - LIPID Performed By: #### L 500.4100, L500.4050 #### [facility] [address] [place], [address] BUN/CRE 13.8 RATIO Normal 10-20 [facility] Comment on above: Order Comment: Order Date: 07/08/24 Order Info: 0786-1 - CMP Order Info: [id number] - LIPID Performed By: #### L 500.4100, L500.4050 #### [facility] [address] [place], [address] Calcium [Mass/Vol] 9.5 mg/dL Normal 7.6-11.0 [facility] Comment on above: Order Comment: Order Date: 07/08/24 Order Info: [id number]- - CMP Order Info: [id number] - LIPID Performed By: #### L 500.4100, L500.4050 #### [facility] [address] [place], [address] Chloride [Moles/Vol] 100 mmol/L Normal 98-108 [facility] Comment on above: Order Comment: Order Date: 07/08/24 Order Info: 0786- - CMP Order Info: [id number] - LIPID Performed By: #### L 500.4100, L500.4050 #### [facility] [address] [place], [address] CO2 [Moles/Vol] 25.6 mmol/L Normal 21.0-32.0 [facility] Comment on above: Order Comment: Order Date: 07/08/24 Order Info: 0786-1 - CMP Order Info: [id number] - LIPID Performed By: #### L 500.4100, L500.4050 #### [facility] [address] [place], [address] Creatinine [Mass/Vol] 1.04 mg/dL Normal 0.70-1.20 [facility] Comment on above: Order Comment: Order Date: 07/08/24 Order Info: 0786-1 - CMP Order Info: [id number] - LIPID Performed By: #### L 500.4100, L500.4050 #### [facility] [address] [place], [address] GAP 11 Normal 5-15 [facility] Comment on above: Order Comment: Order Date: 07/08/24 Order Info: 0786 - CMP Order Info: [id number] - LIPID Performed By: #### L 500.4100, L500.4050 #### [facility] [address] [place], [address] GFR/1.73 sq M.predicted among non-blacks MDRD (S/P/Bld) [Vol rate/Area] 77 mL/min/{1.73_m2} Normal >60 [facility] Comment on above: Order Comment: Order Date: 07/08/24 Order Info: 0786 - CMP Order Info: [id number] - LIPID Result Comment: mL/m in/1.73m2 CKD-EPI Creatinine Equation (2020) Performed By: #### L 500.4100, L500.4050 #### [facility] [address] [place], [address] Globulin (S) [Mass/Vol] 2.7 g/dL Normal 2.2-4.2 [facility] Comment on above: Order Comment: Order Date: 07/08/24 Order Info: 0786- - CMP Order Info: [id number] - LIPID Performed By: #### L 500.4100, L500.4050 #### [facility] [address] [place], [address] Glucose [Mass/Vol] 119 mg/dL High 70-99 [facility] Comment on above: Order Comment: Order Date: 07/08/24 Order Info: 0786-1 - CMP Order Info: [id number] - LIPID Performed By: #### L 500.4100, L500.4050 #### [facility] [address] [place], [address] Potassium [Moles/Vol] 4.2 mmol/L Normal 3.3-5.1 [facility] Comment on above: Order Comment: Order Date: 07/08/24 Order Info: 0786-1 - CMP Order Info: [id number] - LIPID Performed By: #### L 500.4100, L500.4050 #### [facility] [address] [place], [address] Sodium [Moles/Vol] 137 mmol/L Normal 133-145 [facility] Comment on above: Order Comment: Order Date: 07/08/24 Order Info: 0786-1 - CMP Order Info: [id number] - LIPID Performed By: #### L 500.4100, L500.4050 #### [facility] [address] [place], [address] T PROT 7.1 g/dL Normal 5.9-8.4 [facility] Comment on above: Order Comment: Order Date: 07/08/24 Order Info: 0786- - CMP Order Info: [id number] - LIPID Performed By: #### L 500.4100, L500.4050 #### [facility] [address] [place], [address] Urea nitrogen [Mass/Vol] 14 mg/dL Normal 4-19 [facility] Comment on above: Order Comment: Order Date: 07/08/24 Order Info: 0786-1 - CMP Order Info: [id number] - LIPID Performed By: #### L 500.4100, L500.4050 #### [facility] [address] [place], [address] Lipid Profileon 10-14-2024 CHOL:HDL 2.85 Normal [facility] Comment on above: Order Comment: Order Date: 07/08/24 Order Info: 0786-1 - CMP Order Info: [id number] - LIPID Performed By: #### L 500.4100, L500.4050 #### [facility] [address] [place], [address] Cholesterol [Mass/Vol] 181 mg/dL Normal <=200 [facility] Comment on above: Order Comment: Order Date: 07/08/24 Order Info: 0786-1 - CMP Order Info: [id number] - LIPID Result Comment: Chol esterol level, Desirable <200 mg/dL Borderline high cholesterol 200-239 mg/dL High cholesterol >=240 mg/dL Recommendations of the NCEP Adult Treatment Panel for the following risk-cutoff thresholds for the [place] population. Performed By: #### L 500.4100, L500.4050 #### [facility] [address] [place], [address] Cholesterol in HDL [Mass/Vol] 64 mg/dL Normal [facility] Comment on above: Order Comment: Order Date: 07/08/24 Order Info: 0786 - [facility] Order Info: [id number] - LIPID Result Comment: Jordyn onal Cholesterol Education Program (NCEP) guidelines: <40 mg/dL: Low HDL-cholesterol (major risk factor for CHD) >= 60 mg/dL: High HDL-cholesterol (negative risk factor for CHD) HDL-cholesterol is affected by a number of factors, e.g. smoking, exercise, hormones, sex and age. Performed By: #### L 500.4100, L500.4050 #### [facility] [address] [place], [address] Cholesterol in LDL [Mass/Vol] 98 mg/dL Normal [facility] Comment on above: Order Comment: Order Date: 07/08/24 Order Info: 0786-1 - CMP Order Info: [id number] - LIPID Result Comment: Bord nxnuwv=766-022 mg/dL Higher Upxc=519 mg/dL or greater Friedwald Equation for LDL-C Performed By: #### L 500.4100, L500.4050 #### [facility] [address] [place], [address] Cholesterol in VLDL [Mass/Vol] 19 mg/dL Normal 5-40 [facility] Comment on above: Order Comment: Order Date: 07/08/24 Order Info: 0786-1 - CMP Order Info: [id number] - LIPID Performed By: #### L 500.4100, L500.4050 #### [facility] [address] [place], [place], [address] Triglyceride [Mass/Vol] 97 mg/dL Normal [facility] Comment on above: Order Comment: Order Date: 07/08/24 Order Info: 0786-1 - CMP Order Info: [id number] - LIPID Result Comment: The drugs N-Acetylcysteine and Metamizole may falsely depress this assay. Normal range: <150 mg/dL Borderline High: 150-199 mg/dL High: 200-499 mg/dL Very High: >500 mg/dL Performed By: #### L 500.4100, L500.4050 #### [facility] [address] [place], [place], [address] PSA,Total- Diagnosticon 09-27 PSA, DIAGNOSTIC 0.17 ng/mL Normal 0.00-4.00 [facility] Comment on above: Result Comment: This test was performed using the [employer] tPSA method. Measured values of a patient??sample can vary depending on the testing procedure used. PSA values determined on patient samples by different testing procedures cannot be used interchangeably. If there is a change in PSA assays while monitoring therapy, sequential testing should be performed to confirm baseline values. Performed By: #### L 501.9941 #### [facility] [address] [place], [address] Office Visit Reporton 2024 Office Visit Report [facility] [address] [place] [address] OFFICE VISIT Date of Service: 09/27/24 MR#: [id number] Acct: [id number] Patient: FERN TAPIA Rep #: [id number] : 1955 Provider: Dr. Greyson Camacho MD Age/Sex: 69/M Location: [facility] Status: Signed Intake Vital Signs 09/19/24 11:19 [...] Orders: Orders 12 Lead EKG performed by [facility] 09/27/24 I48.92 - Unspecified atrial flutter, Z92.89 - Personal history of other medical treatment Clinical Quality Measures Falls Risk Screening/Assistive Devices Have you fallen in the past year?: No 09/28/24918 Date Greyson Camacho MD Cosigner Signature: Date (if applicable) CC: Normal [facility] Procedure Reporton Procedure Report [facility] Medical Records Department [address] [place] [address] Procedure Report 09/20/2429 MR#: [id number] Acct: [id number] Name: FERN TAPIA Rep #: [id number] : 1955 69 From: Jasper Mckinley DO PCP: Dr. Darin Walton MD Status:REG [facility] Location: [facility] Procedures Pulmonary Pulmonary Procedures /Diagnostic Testin Con Sedation Non-invasive Procedural Procedure Information Date of Procedure: 09/20/24 Description of procedure: CONSCIOUS SEDATION REPORT DATE OF SERVICE: September 20, 2024 BRIEF HISTORY OF PRESENT ILLNESS: The patient is a 69-year-old male who presented to [facility] to undergo an elective outpatient cardioversion [...] RECOMMENDATIONS: Okay to recover in usual fashion. 09/20/24 0831 Cosigner Signature (if applicable): CC: Dr. Darin Walton MD; Dr. Greyson Camacho MD; Dr. Jasper Mckinley DO Signed Normal [facility] Procedure Report [facility] Medical Records Department [address] [place] [address] Procedure Report 09/20/24 0812 MR#: [id number] Acct: [id number] Name: FERN TAPIA Rep #: [id number] : 1955 69 From: Greyson Camacho MD PCP: Dr. Darin Walton MD Status:[facility] Location: [facility] Non-invasive Procedural Procedure Information Date of [...] candidate for atrial flutter ablation here in [place]. A tentative date has been set for October 17. Risk benefits alternatives have been explained to the patient as well as his and they are all in agreement. Arrangements will be made for this. Complications Complications: No 09/20/24815 Cosigner Signature (if applicable): CC: Dr. Darin [...] month's time. Good Benitez MD 09/20/24 09/20/24 3577 Cosigner Signature (if applicable): cc: Dr. Darin Walton MD; Dr. Greyson Camacho MD; Dr. Good Benitez MD * Signed Normal [facility] Anion gap in Serum or Plasma Ordered By: Greyson Camacho on 09-19-2024 Anion gap [Moles/Vol] 12 mmol/L 07-11 [facility] BUN/creatinine ratioOrdered By: Greyson Camacho on 09-19-2024 Urea nitrogen/Creatinine [Mass ratio] 15.4 mg/mg 12-16 [facility] Basic Metabolic Profile (BMP )on 09-19-2024 BUN/CRE 15.4 RATIO Normal 12-16 [facility] Comment on above: Performed By: #### L 500.2500 #### [facility] [address] [place], [address] Calcium [Mass/Vol] 9.1 mg/dL Normal 7.6-11.0 [facility] Comment on above: Performed By: #### L 500.2500 #### [facility] [address] [place], [address] Chloride [Moles/Vol] 101 mmol/L Normal 98-108 [facility] Comment on above: Performed By: #### L 500.2500 #### [facility] [address] [place], [address] CO2 [Moles/Vol] 23.6 mmol/L Normal 21.0-32.0 [facility] Comment on above: Performed By: #### L 500.2500 #### [facility] [address] [place], [address] Creatinine [Mass/Vol] 1.01 mg/dL Normal 0.70-1.20 [facility] Comment on above: Performed By: #### L 500.2500 #### [facility] [address] [place], [address] GAP 12 Normal 5-15 [facility] Comment on above: Performed By: #### L 500.2500 #### [facility] [address] [place], [address] GFR/1.73 sq M.predicted among non-blacks MDRD (S/P/Bld) [Vol rate/Area] 80 mL/min/{1.73_m2} Normal >60 [facility] Comment on above: Result Comment: mL/m in/1.73m2 CKD-EPI Creatinine Equation (2020) Performed By: #### L 500.2500 #### [facility] [address] [place], [address] Glucose [Mass/Vol] 127 mg/dL High 70-99 [facility] Comment on above: Performed By: #### L 500.2500 #### [facility] [address] [place], [address] Potassium [Moles/Vol] 3.9 mmol/L Normal 3.3-5.1 [facility] Comment on above: Performed By: #### L 500.2500 #### [facility] [address] [place], [address] Sodium [Moles/Vol] 137 mmol/L Normal 133-145 [facility] Comment on above: Performed By: #### L 500.2500 #### [facility] [address] [place], [place], [address] Urea nitrogen [Mass/Vol] 16 mg/dL Normal 4-19 [facility] Comment on above: Performed By: #### L 500.2500 #### [facility] [address] [place], [address] Carbon dioxide, total [Moles /volume] in Central venous bloodOrdered By: Greyson Camacho on 09-19-2024 CO2 [Moles/Vol] 23.6 mmol/L 21.0-32.0 [facility] Cardiology Visit Reporton Cardiology Visit Report [facility] [address] [place] [address] OFFICE VISIT Date of Service: 09/19/24 MR#: [id number] Acct: [id number] Name: FERN TAPIA Rep #: [id number] : 1955 Provider: Dr. 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 Normal [facility] Chloride assayOrdered By: Kiran Camacho on 09-19-2024 Chloride [Moles/Vol] 101 mmol/L 98-108 [facility] Glomerular filtration rate ( GFR) estimation/1.73 sq m using serum, plasma, or whole bOrdered By: Greyson Camacho on 09-19-2024 GFR/1.73 sq M.predicted among non-blacks MDRD (S/P/Bld) [Vol rate/Area] 80 mL/min/{1.73_m2} >60 [facility] Comment on above: mL/min/1.73m2 CKD-EP I Creatinine Equation (2020) Potassium measurement (mass/ volume)Ordered By: Greyson Camacho on 09-19-2024 Potassium (Unsp spec) [Mass/Vol] 3.9 mmol/L 3.3-5.1 [facility] Serum creatinine measurement (mass/volume)Ordered By: Greyson Camacho on 09-19-2024 Creatinine [Mass/Vol] 1.01 mg/dL 0.70-1.20 [facility] Serum glucose measurement (m ass/volume)Ordered By: Greyson Camacho on 09-19-2024 Glucose [Mass/Vol] 127 mg/dL High 70-99 [facility] Serum or plasma calcium kristen urement (mass/volume)Ordered By: Greyson Doug on 09-19-2024 Calcium [Mass/Vol] 9.1 mg/dL 7.6-11.0 [facility] Serum or plasma urea nitroge n measurement (mass/volume)Ordered By: Leon Doug on 09-19-2024 Urea nitrogen [Mass/Vol] 16 mg/dL - [facility] Sodium levelOrdered By: Kiranri alice Camacho on 09-19-2024 Sodium [Moles/Vol] 137 mmol/L 133-145 [facility] PSA,Total- Diagnosticon 03-30 PSA, DIAGNOSTIC 0.11 ng/mL Normal 0.0-4.0 [facility] Comment on above: Result Comment: This test was performed using the TPSA assay method for the [employer] chemistry system. Values obtained with different assay methods cannot be used interchangably. When changing PSA assays in the course of monitoring a patient, additional sequential testing should be carried out to confirm baseline values. Performed By: #### L 501.9940 #### [facility] [address] [place], [address] Basophil percentageOrdered B y: Janet Francisco on 04-11-2023 Basophil percentage 0.07 ng/mL 0.0-4.0 [facility] Comment on above: This test was perfor med using the TPSA assay method for [employer] chemistry system. Values obtained with differentassay methods cannot be used interchangably.When changing PSA assays in the course of monitoring apatient, additional sequential testing should be carriedout to confirm baseline values. Basophil percentageOrdered B y: Greyson Camacho on 02-14-2023 Chloride [Moles/Vol] 105 mmol/L 98-107 [facility] Glucose [Mass/Vol] 117 mg/dL 74-106 [facility] Comment on above: Fasting Glucose resu lt from 100 to 125 mg/dL suggests IMPAIRED HOMEOSTASIS per A.D.A. criteria. Potassium [Moles/Vol] 4.1 mmol/L 3.5-5.1 [facility] Sodium [Moles/Vol] 138 mmol/L 136-145 [facility] Laboratory - Chemistry and C hemistry - challengeOrdered By: Greyson Camacho on 02-14-2023 CO2 [Moles/Vol] 31.0 mmol/L 21.0-32.0 [facility] Urea nitrogen/Creatinine [Mass ratio] 11.9 mg/mg 10- [facility] No Panel InformationOrdered By: Greyson Camacho on 02-14-2023 Estimated GFR (MDRD) Amer 86 mL/min >60 [facility] Comment on above: GFR Calc Estimated GFR (MDRD) Non-Af Amer 71 mL/min >60 [facility] Comment on above: Non- GFR Calc Serum or plasma calcium kristen urement (mass/volume)Ordered By: Greyson Camacho on 02-14-2023 Calcium [Mass/Vol] 9.3 mg/dL 8.5-10.1 [facility] Serum or plasma creatinine m easurement (mass/volume)Ordered By: Greyson Camacho on 02-14-2023 Creatinine [Mass/Vol] 1.09 mg/dL 0.70-1.30 [facility] Comment on above: The validity of the calculated GFR & GFRAA in patients over 70 years has not been determined. Clinical correlation is essential. Serum or plasma urea nitroge n measurement (mass/volume)Ordered By: Greyson Camacho on 02-14-2023 Urea nitrogen [Mass/Vol] 13 mg/dL 7-18 [facility] Thin prep Papanicolaou smear with manual screeningOrdered By: Greyson Camacho on 02-14-2023 Thin prep Papanicolaou smear with manual screening 2 5-15 [facility] Basophil percentageOrdered B y: Diallo Walton on 12-29-2022 Bilirubin [Mass/Vol] 1.00 mg/dL 0.20-1.00 [facility] Comment on above: For patients on eltr ombopag therapy, use of Dimension [place] TBIL is not recommended. Chloride [Moles/Vol] 107 mmol/L 98-107 [facility] Cholesterol [Mass/Vol] 162 mg/dL <200 [facility] Comment on above: <200 mg/dL Desirable 200-240 mg/dL Borderline >240 mg/dL High Risk Glucose [Mass/Vol] 93 mg/dL 74-106 [facility] Potassium [Moles/Vol] 3.8 mmol/L 3.5-5.1 [facility] Protein [Mass/Vol] 7.0 g/dL 6.4-8.2 [facility] Sodium [Moles/Vol] 140 mmol/L 136-145 [facility] Triglyceride [Mass/Vol] 105 mg/dL <199 [facility] Comment on above: The drugs N-Acetylcy steine and Metamizole may falsely depress this assay.Serum Triglycerides Reference Interval Normal <150 mg/dL Borderline high 150 - 199 mg/dL High 200 - 499 mg/dL Very High > or = 500 mg/dL Laboratory - Chemistry and C hemistry - challengeOrdered By: Diallo Walton on 12-29-2022 ALP [Catalytic activity/Vol] 62 U/L 45-117 [facility] ALT [Catalytic activity/Vol] 31 U/L 16-61 [facility] CO2 [Moles/Vol] 25.0 mmol/L 21.0-32.0 [facility] Globulin (S) [Mass/Vol] 3.1 g/dL 2.2-4.2 [facility] Magnesium [Mass/Vol] 2.4 mg/dL 1.6-2.6 [facility] Urea nitrogen/Creatinine [Mass ratio] 13.3 mg/mg 10-20 [facility] No Panel InformationOrdered By: Diallo Walton on 12-29-2022 Estimated GFR (MDRD) Amer 90 mL/min >60 [facility] Comment on above: GFR Calc Estimated GFR (MDRD) Non-Af Amer 74 mL/min >60 [facility] Comment on above: Non- GFR Calc Thyroid Stimulating Hormone (TSH) 2.51 uIU/mL 0.358-3.74 [facility] Serum or plasma albumin kristen urement (mass/volume)Ordered By: Diallo Walton on 12-29-2022 Albumin [Mass/Vol] 3.9 g/dL 3.2-5.0 [facility] Serum or plasma albumin/glob ulin mass ratioOrdered By: Diallo Walton on 12-29-2022 Albumin/Globulin [Mass ratio] 1.3 {ratio} 0.9-2.4 [facility] Serum or plasma calcium kristen urement (mass/volume)Ordered By: Diallo Walton on 12-29-2022 Calcium [Mass/Vol] 8.9 mg/dL 8.5-10.1 [facility] Serum or plasma cholesterol in HDL measurement (mass/volume)Ordered By: Diallo Walton on 12-29-2022 Cholesterol in HDL [Mass/Vol] 59 mg/dL >40 [facility] Comment on above: The drugs N-Acetylcy steine and Metamizole may falsely depress this assay. Reference Range HDL <40 mg/dL Low HDL Cholesterol HDL >or= 60 mg/dL High HDL Cholesterol Serum or plasma cholesterol in VLDL measurement (mass/volume)Ordered By: Diallo Walton on 12-29-2022 Cholesterol in VLDL [Mass/Vol] 21 mg/dL 5-40 [facility] Serum or plasma creatinine m easurement (mass/volume)Ordered By: Diallo Walton on 12-29-2022 Creatinine [Mass/Vol] 1.05 mg/dL 0.70-1.30 [facility] Comment on above: The validity of the calculated GFR & GFRAA in patients over 70 years has not been determined. Clinical correlation is essential. Serum or plasma low density lipoprotein (LDL) cholesterol measurement (mass/volume)Ordered By: Diallo Walton on 12-29-2022 Cholesterol in LDL [Mass/Vol] 82 mg/dL 0-130 [facility] Serum or plasma urea nitroge n measurement (mass/volume)Ordered By: Diallo Walton on 12-29-2022 Urea nitrogen [Mass/Vol] 14 mg/dL 7-18 [facility] Thin prep Papanicolaou smear with manual screeningOrdered By: Diallo Walton on 12-29-2022 Thin prep Papanicolaou smear with manual screening 14 U/L 15-37 [facility] Thin prep Papanicolaou smear with manual screening 8 5-15 [facility] No Panel InformationOrdered By: Houston Conklin on 09-08-2022 Prostate Specific Antigen Total 0.12 ng/mL 0.0-4.0 [facility] Comment on above: This test was perfor med using the TPSA assay method for theDimension chemistry system. Values obtained with differentassay methods cannot be used interchangably.When changing PSA assays in the course of monitoring apatient, additional sequential testing should be carriedout to confirm baseline values. No Panel InformationOrdered By: Dr. Conklin on 03-04-2022 Prostate Specific Antigen Total 0.08 ng/mL 0.0-4.0 [facility] Comment on above: This test was perfor med using the TPSA assay method for theDimension chemistry system. Values obtained with differentassay methods cannot be used interchangably.When changing PSA assays in the course of monitoring apatient, additional sequential testing should be carriedout to confirm baseline values. No Panel Informationon 08-17 Prostate Specific Antigen Total 0.08 ng/mL 0.0-4.0 [facility] Work Phone: Comment on above: This test was perfor med using the TPSA assay method for theDimension chemistry system. Values obtained with differentassay methods cannot be used interchangably.When changing PSA assays in the course of monitoring apatient, additional sequential testing should be carriedout to confirm baseline values. CURon 02-16-2019 CUR . MICRO - Microbiology PROCEDURE: Urine Culture [*1] [...] Locations *1: This test was performed at: [facility], [address] [place] [address], [address] [place] [address] ([place]) Comment on above: Performed By: #### C UR #### [address] [address] .Auto Diffon 02-14-2019 Ammonia (P) [Mass/Vol] 0.70 10 3/mcL Normal 0.15-1.00 [facility] ([place]) Comment on above: Performed By: #### C BC, ADIFF, ANEU #### [place] [address] #### BMP, GFR #### [address] [address] Basophils (Bld) [#/Vol] 0.00 10 3/mcL Normal 0.00-0.19 [facility] ([place]) Comment on above: Performed By: #### C BC, ADIFF, ANEU #### [place] [address] #### BMP, GFR #### [place] [address] Basophils/100 WBC (Bld) 0.3 % Normal 0.0-2.5 [facility] ([place]) Comment on above: Performed By: #### C BC, ADIFF, ANEU #### [place] [address] #### BMP, GFR #### [place] [address] Eosinophils (Bld) [#/Vol] 0.10 10 3/mcL Normal 0.00-0.40 [facility] ([place]) Comment on above: Performed By: #### C BC, ADIFF, ANEU #### [place] [address] #### BMP, GFR #### [place] [id number] Eosinophils/100 WBC (Bld) 0.4 % Normal 0.0-7.0 [facility] ([place]) Comment on above: Performed By: #### C BC, ADIFF, ANEU #### [place] [address] #### BMP, GFR #### [address] [address] Lymphocytes (Bld) [#/Vol] 0.60 10 3/mcL Low 0.77-3.85 [facility] ([place]) Comment on above: Performed By: #### C BC, ADIFF, ANEU #### [address] [address] #### BMP, GFR #### [address] [address] Lymphocytes/100 WBC (Bld) 4.7 % Low 10.0-50.0 [facility] ([place]) Comment on above: Performed By: #### C BC, ADIFF, ANEU #### [address] [address] #### BMP, GFR #### [address] [address] Monocytes/100 WBC (Bld) 5.5 % Normal 1.7-13.0 [facility] ([place]) Comment on above: Performed By: #### C BC, ADIFF, ANEU #### [address] [address] #### BMP, GFR #### [address] [address] Neutrophils/100 WBC (Bld) 89.1 % High 37.0-80.0 [facility] ([place]) Comment on above: Performed By: #### C BC, ADIFF, ANEU #### [place] [address] #### BMP, GFR #### [address] [address] .GFRon 02-14-2019 GFR 81 ml/min/1.73sqm Normal [facility] ([place]) Comment on above: Result Comment: [...] By: #### C BC, ADIFF, ANEU #### [address] [address] #### BMP, GFR #### [address] [address] GFR Non- 66 ml/min/1.73sqm Normal [facility] ([place]) Comment on above: Result Comment: GFR Population [...] square meters Performed By: #### C BC, LEE ANNIFF, ANEU #### [address] [address] #### BMP, GFR #### [address] [address] .NEUABSon 02-14-2019 Neutrophils (Bld) [#/Vol] 12.10 10 3/mcL High 2.85-6.16 [facility] ([place]) Comment on above: Performed By: #### C BC, ADIFF, ANEU #### [address] [address] #### BMP, GFR #### [address] [address] .Urinalysis Microscopic (AO) on 02-14-2019 RBC (U) [#/Vol] 0-5 None Seen [facility] ([place]) Comment on above: Performed By: #### U A, UAMICAO #### [place] [address] UA Bacteria Trace [facility] ([place]) Comment on above: Performed By: #### U A, UAMICAO #### [place] [address] UA Fine Granular Casts 0-5 [facility] ([place]) Comment on above: Performed By: #### U A, UAMICAO #### [place] [address] UA Mucous 1+ /hpf Normal [facility] ([place]) Comment on above: Performed By: #### U A, UAMICAO #### [place] [address] UA Squam Epithelial 0-5 None Seen [facility] ([place]) Comment on above: Performed By: #### U A, UAMICAO #### [place] [address] UA WBC 0-5 None Seen [facility] ([place]) Comment on above: Performed By: #### U A, UAMICAO #### [place] [address] UA Yeast Trace [facility] ([place]) Comment on above: Performed By: #### U A, UAMICAO #### [place] [address] BMPon 02-14-2019 Calcium [Mass/Vol] 8.3 mg/dL Low 8.4-10.2 [facility] ([place]) Comment on above: Performed By: #### C BC, ADIFF, ANEU #### [address] [address] #### BMP, GFR #### [place] [address] Chloride [Moles/Vol] 103 mmol/L Normal 98-107 [facility] ([place]) Comment on above: Performed By: #### C BC, ADIFF, ANEU #### [address] [address] #### BMP, GFR #### [address] [address] CO2 [Moles/Vol] 25 mmol/L Normal 23-31 [facility] ([place]) Comment on above: Performed By: #### C BC, ADIFF, ANEU #### [address] [address] #### BMP, GFR #### [address] [address] Creatinine [Mass/Vol] 1.11 mg/dL Normal 0.70-1.30 [facility] ([place]) Comment on above: Performed By: #### C BC, ADIFF, ANEU #### [address] [address] #### BMP, GFR #### [address] [address] Electrolyte Balance 13.0 mEq/L Normal [facility] ([place]) Comment on above: Performed By: #### C BC, ADIFF, ANEU #### [address] [address] #### BMP, GFR #### [address] [address] Glucose [Mass/Vol] 142 mg/dL High 80-115 [facility] ([place]) Comment on above: Performed By: #### C BC, ADIFF, ANEU #### [address] [address] #### BMP, GFR #### [address] [address] Potassium [Moles/Vol] 3.9 mmol/L Normal 3.5-5.1 [facility] ([place]) Comment on above: Performed By: #### C BC, ADIFF, ANEU #### [address] [address] #### BMP, GFR #### [address] [address] Sodium [Moles/Vol] 141 mmol/L Normal 136-145 [facility] ([place]) Comment on above: Performed By: #### C BC ADIFF, ANEU #### [address] [address] #### BMP, GFR #### [address] [address] Urea nitrogen [Mass/Vol] 16 mg/dL Normal 7-18 [facility] ([place]) Comment on above: Performed By: #### C BC, ADIFF, ANEU #### [address] [address] #### BMP, GFR #### [address] [address] Urea nitrogen/Creatinine [Mass ratio] 14 ratio Normal 7-27 [facility] ([place]) Comment on above: Performed By: #### C BCLEE ANNIFF, ANEU #### [place] [address] #### BMP, GFR #### [address] [address] CBCon 02-14-2019 Erythrocyte distribution width (RBC) [Ratio] 13.8 % Normal 11.5-14.5 [facility] ([place]) Comment on above: Performed By: #### C BC, LEE ANNIFF, ANEU #### [address] [address] #### BMP, GFR #### [address] [address] Hematocrit (Bld) [Volume fraction] 27.6 % Low 42.0-52.0 [facility] ([place]) Comment on above: Performed By: #### C BC, ADIFF, ANEU #### [address] [address] #### BMP, GFR #### [address] [address] Hemoglobin (Bld) [Mass/Vol] 9.2 G/dL Low 14.0-18.0 [facility] ([place]) Comment on above: Performed By: #### C BC, ADIFF, ANEU #### [address] [address] #### BMP, GFR #### [address] [address] MCH (RBC) [Entitic mass] 30.8 pg Normal 27.0-31.2 [facility] ([place]) Comment on above: Performed By: #### C BC, ADIFF, ANEU #### [place] [address] #### BMP, GFR #### [address] [address] MCHC (RBC) [Mass/Vol] 33.5 G/dL Normal 31.8-35.4 [facility] ([place]) Comment on above: Performed By: #### C BC, ADIFF, ANEU #### [place] [address] #### BMP, GFR #### [address] [address] MCV (RBC) [Entitic vol] 92.1 fL Normal 80.0-94.0 [facility] ([place]) Comment on above: Performed By: #### C BC, ADIFF, ANEU #### [address] [address] #### BMP, GFR #### [address] [address] Platelet mean volume (Bld) [Entitic vol] 7.6 fL Normal 7.4-10.4 [facility] ([place]) Comment on above: Performed By: #### C BC, ADIFF, ANEU #### [address] [address] #### BMP, GFR #### [address] [address] Platelets (Bld) [#/Vol] 509 10 3/mcL High 130-400 [facility] ([place]) Comment on above: Performed By: #### C BC, ADIFF, ANEU #### [place] [address] [place], [place] [address] #### BMP, GFR #### [address] [address] RBC (Bld) [#/Vol] 3.00 10 6/mcL Low 4.04-6.13 [facility] ([place]) Comment on above: Performed By: #### C BC, ADIFF, ANEU #### [address] [address] #### BMP, GFR #### [address] [address] WBC (Bld) [#/Vol] 13.50 10 3/mcL High 4.60-10.80 [facility] ([place]) Comment on above: Performed By: #### C BC, ADIFF, ANEU #### [address] [address] #### BMP, GFR #### [address] [address] [address] ABDOMEN/PELVIS W/O CONTRA STon 02-14-2019 CT [...] 02/14/2019 3:40:00 PM Ordering Provider:Gopal King Normal [facility] ([place]) UAon 02-14-2019 Color (U) Yellow Normal [facility] ([place]) Comment on above: Performed By: #### U A UAMICAO #### [address] [address] Glucose (U) [Mass/Vol] Negative Normal Negative [facility] ([place]) Comment on above: Performed By: #### U A, UAMICAO #### [address] [address] Ketones Ql (U) Negative Normal Negative [facility] ([place]) Comment on above: Performed By: #### U A, UAMICAO #### [address] [address] UA Appear Clear Normal Clear [facility] ([place]) Comment on above: Performed By: #### U A, UAMICAO #### [address] [address] UA Blood Moderate Negative [facility] ([place]) Comment on above: Performed By: #### U A, UAMICAO #### [place] [address] UA Leuk Est Negative Normal Negative [facility] ([place]) Comment on above: Performed By: #### U A, UAMICAO #### [place] [address] UA Nitrite Negative Normal Negative [facility] ([place]) Comment on above: Performed By: #### U A, UAMICAO #### [place] [address] UA pH 6.0 Normal 5.0 - 8.0 [facility] ([place]) Comment on above: Performed By: #### U A, UAMICAO #### [place] [address] UA Protein Negative Normal Negative [facility] ([place]) Comment on above: Performed By: #### U A, UAMICAO #### [place] [address] UA Spec Grav 1.020 Normal 1.015-1.025 [facility] ([place]) Comment on above: Performed By: #### U A, UAMICAO #### [place] [address] UA Specimen Type Catheter Normal [facility] ([place]) Comment on above: Performed By: #### U A, UAMICAO #### [place] [address] UA Urobilinogen 1.0 E.U./dL Normal 0.2-1.0 [facility] ([place]) Comment on above: Performed By: #### U A, UAMICAO #### [place] [address] Urobilinogen Qn (U) Negative Normal Negative [facility] ([place]) Comment on above: Performed By: #### U A, UAMICAO #### [place] [address] Office Visit: Spine Visit- N EWon 07-07-2016 Alcoholism counseling (procedure) no Invalid Interpretation Code [facility] Work Phone: Dietary management education, guidance, and counseling (procedure) yes Invalid Interpretation Code [facility] Work Phone: Documentation of current medications (procedure) Done Invalid Interpretation Code [facility] Work Phone: Smoking cessation education (procedure) yes Invalid Interpretation Code [facility] Work Phone: Tobacco smoking status NHIS Never Invalid Interpretation Code [facility] Work Phone: Tobacco use [facility] Current every day smoker Invalid Interpretation Code [facility] Work Phone: Vital Signs Date Time Vital Sign Value Performing Clinician Tai hassan 09-20-2024 07:23-0400 Body height [address] Darin Walton MD Work Phone: [facility] 09-20-2024 07:23-0400 Body weight 96.[address] Darin Walton MD Work Phone: [facility] 09-19-2024 14:10-0400 Body mass index (BMI) [Ratio] 30.3 kg/m2 Dr. Darin Walton MD Work Phone: [facility] 09-19-2024 11:19-0400 Body height 177.[address] Darin Walton MD Work Phone: [facility] 09-19-2024 11:19-0400 Body mass index (BMI) [Ratio] 30.4 kg/m2 Dr. Darin Walton MD Work Phone: [facility] 09-19-2024 11:19-0400 Body weight 96.[address] Darin Walton MD Work Phone: [facility] 09-19-2024 11:19-0400 Diastolic blood pressure 82 mm[Hg] Dr. Darin Walton MD Work Phone: [facility] 09-19-2024 11:19-0400 Heart rate 142 /min Dr. Darin Walton MD Work Phone: [facility] 09-19-2024 11:19-0400 Respiratory rate 16 /min Dr. Darin Walton MD Work Phone: [facility] 09-19-2024 11:19-0400 Systolic blood pressure 120 mm[Hg] Dr. Darin Walton MD Work Phone: [facility] 03-02-2023 11:02-0500 Body height 177.[address] Diallo Walton Work Phone: [facility] 03-02-2023 11:02-0500 Body weight 95.[address] Diallo Walton Work Phone: [facility] 03-01-2023 09:35-0500 Body mass index (BMI) [Ratio] 30.1 kg/m2 Dr. Diallo Walton Work Phone: [facility] 01-25-2023 10:32-0500 Body mass index (BMI) [Ratio] 29.7 kg/m2 Dr. Diallo Walton Work Phone: [facility] 01-25-2023 10:32-0500 Body weight 95.[address] Diallo Walton Work Phone: [facility] 01-25-2023 10:32-0500 Diastolic blood pressure 93 mm[Hg] Dr. Diallo Walton Work Phone: [facility] 01-25-2023 10:32-0500 Heart rate 71 /min Dr. Diallo Walton Work Phone: [facility] 01-25-2023 10:32-0500 Respiratory rate 14 /min Dr. Diallo Walton Work Phone: [facility] 01-25-2023 10:32-0500 Systolic blood pressure 133 mm[Hg] Dr. Diallo Walton Work Phone: [facility] 07-07-2016 10:32-0400 BMI (Body Mass Index) 29.53 kg/m2 [facility] Work Phone: 07-07-2016 10:32-0400 BP Diastolic 56 mm[Hg] [facility] Work Phone: 07-07-2016 10:32-0400 BP Systolic 145 mm[Hg] [facility] Work Phone: 07-07-2016 10:32-0400 Height 175.26 cm [facility] Work Phone: 07-07-2016 10:32-0400 Weight 90.72 kg [facility] [employer] [facility] Work Phone: Encounters Encounter Date Encounter Type Care Provider Facility Start: 10-18-2024 ambulatory Darin Lujan lit:[facility] Start: 10-14-2024 ambulatory Darin Lujan lit:[facility] Start: 09-27-2024 End: 09-27-[address] Greyson Camacho MD -[facility] Work Phone: Start: 09-27-2024 End: 09-27-[address] Darin Walton MD Work Phone: -[facility] Start: 09-20-2024 ambulatory Greyson Camacho Facility:[facility] Start: 09-20-2024 Non-patient / Non-visit Dr. Jasper Mckinley DO -[facility] Start: 09-20-2024 End: 09-20-2024 Admission to same day surgery center Dr. Greyson Camacho MD -[facility] Work Phone: Start: 09-20-2024 End: 09-20-[address] Darin Walton MD Work Phone: -[facility] Start: 09-19-2024 End: 09-19-[address] Greyson Camacho MD -[facility] Work Phone: Start: 09-19-2024 End: 09-19-[address] Darin Walton MD Work Phone: -[facility] Start: 09-19-2024 End: 09-19-2024 ambulatory Darin Walton Facility:[facility] Start: 04-15-2024 End: [facility] Start: 04-11-2023 End: 04-11-[address] Diallo Walton Work Phone: [facility] Work Phone: Start: 04-11-2023 End: 04-11-[address] Diallo Walton Work Phone: [facility] Work Phone: Start: 03-09-2023 End: 03-09-[address] Diallo Walton Work Phone: [facility] Work Phone: Start: 03-02-2023 Non-patient / Non-visit Dr. Diallo Walton Work Phone: [facility] Start: 03-02-2023 End: 03-02-2023 Admission to same day surgery center Dr. Diallo Walton Work Phone: [facility] Work Phone: Start: 03-02-2023 End: 03-02-[address] Diallo Walton Work Phone: [facility] Work Phone: Start: 03-01-2023 Non-patient / Non-visit Dr. Diallo Walton Work Phone: [facility] Work Phone: Start: 03-01-2023 Non-patient / Non-visit Dr. Diallo Walton Work Phone: [facility] Start: 03-01-2023 End: 03-01-[address] Diallo Walton Work Phone: [facility] Work Phone: Start: 03-01-2023 End: 03-01-[address] Diallo Walton Work Phone: [facility] Work Phone: Start: 02-14-2023 Non-patient / Non-visit Dr. Diallo Walton Work Phone: [facility] Start: 01-25-2023 End: 01-25-[address] Diallo Walton Work Phone: [facility] Work Phone: Start: 12-29-2022 End: 12-29-2022 ambulatory [facility] Work Phone: Start: 12-29-2022 End: 12-29-2022 Patient encounter procedure [facility] Start: 09-08-2022 End: 09-08-2022 ambulatory [facility] Work Phone: Start: 09-08-2022 End: 09-08-2022 Patient encounter procedure [facility] Work Phone: Start: 03-04-2022 End: 03-04-2022 ambulatory [facility] Work Phone: Start: 03-04-2022 End: 03-04-2022 Patient encounter procedure [facility] Start: 08-17-2021 End: 08-17-2021 [facility] Procedure Procedure Detail Performing Clinician Start: 07-07-2016 End: 07-07-2016 Chiropractic manipulation Jahaira Adorno DC Work Phone: Start: 07-07-2016 End: 07-07-2016 Electric stimulation therapy Jahaira B Dossi DC Work Phone: Start: 07-07-2016 End: 07-07-2016 Mechanical traction therapy Jahaira Adorno DC Work Phone: Start: 07-07-2016 End: 07-07-2016 X-ray exam of lower spine Jahaira Adorno DC Work Phone: Plan of Treatment Date Care Activity Detail Author Start: 09-27-2024 Evaluation of diagno stic study results [facility] Start: 09-20-2024 Patient discharge [facility] Start: 09-19-2024 Basic metabolic 2008 panel with ionized calcium - Serum or Plasma [facility] Start: 09-19-2024 Evaluation of diagno stic study results [facility] Start: 03-02-2023 Patient discharge [facility] Start: 07-21-2016 End: 07-21-2016 Appointment Appointment [facility] [...] Phone: Anion gap in Serum or Plasma [facility] BUN/Creatinine ratio [facility] Calcium [Mass/volume ] in Serum or Plasma [facility] Carbon dioxide, tota l [Moles/volume] in Central venous blood [facility] Cardioversion [facility] Cardioversion [facility] Creatinine [Mass/vol ume] in Serum or Plasma [facility] Glucose [Mass/volume ] in Serum or Plasma [facility] Measurement of renal function [facility] Patient referral [facility] Work Phone: Potassium measurement [facility] Serum chloride measurement [facility] Sodium measurement [facility] Urea nitrogen [Mass/ volume] in Serum or Plasma [facility] Immunizations Immunization Date Immunization Notes Care Provider Fa cili 01-07-2019 Influenza virus vaccine [facility] Payers Date Payer Category Payer Self-pay [id number] 2023 Medicare [id number] Medicare [id number] Unknown [id number] [facility] [id number] Unknown [id number] Unknown [id number] Unknown [id number] 2.16.8 [id number] Unknown [id number] 2.16.8 [id number] Unknown [id number] 2.16.8 [id number] Unknown [id number] 2.16.8 [id number] Unknown [id number] 2.16.8 [id number] Unknown [id number] 2.16.8 [id number] Unknown [id number] 2.16.8 [id number] Unknown [id number] 2.16.8 [id number] Unknown [id number] 2.16.8 [id number] Social History Date Type Detail Facility Start: 01-29-2019 End: 03-02-2023 Tobacco smoking status [facility] Unknown if ever smoked [facility] Start: 01-29-2019 Cigarettes [facility] Start: 1955 Sex Assigned At Male [facility] Start: 08-04-2023 End: 09-20-2024 Tobacco smoking status UTIS Ex-smoker (finding) [facility] Medical Equipment Procedure Code Equipment Code [...] Start: 02-06-2019 NEVIN MORA FDA Start: 02-06-2019 ABBYLEONARDANILA Freda WEANILA FDA Start: 02-06-2019 ABBYLEONARDANILA Freda BALDWIN FDA Start: 02-06-2019 SEALANT,FLOSEAL HEMOSTATIC 5ML FDA Start: 02-06-2019 ABBYSOYFELICITA BALDWIN FDA Start: 02-06-2019 ABBYSOYFELICITA BALDWIN FDA Start: 02-06-2019 ABBYLEONARDANILA Freda BALDWIN FDA Start: 02-06-2019 ABBYLEONARDANILA Freda PAREDESANILA FDA Start: 02-06-2019 ABBYNEVIN PORRAS Freda DENNY FDA Start: 02-06-2019 ABBYLEONARDANILA Ferda BALDWIN FDA Start: 02-06-2019 ABBYLEONARDANILA Freda PAREDESANILA FDA Start: 02-06-2019 SEALANT,FLOSEAL HEMOSTATIC 5ML FDA Start: 02-06-2019 ABBYSOYFELICITA BALDWIN FDA Start: 02-06-2019 ABBYSOYFELICITA BALDWIN FDA Start: 02-06-2019 ABBYLEONARDANILA Freda PAREDESANILA FDA Start: 02-06-2019 ABBYLEONARDANILA Freda DENNY FDA Start: 02-06-2019 ABBYLEONARDANILA Freda DENNY FDA Start: 02-06-2019 ABBYLEONARDANILA Freda BALDWIN FDA Start: 02-06-2019 ABBYLEONARDANILA ME Barba LENAANILA FDA Start: 02-06-2019 SEALANT,FLOSEAL HEMOSTATIC 5ML FDA Start: 02-06-2019 ABBYSOYFELICITA BALDWIN FDA Start: 02-06-2019 ABBYSOYFELICITA BALDWIN FDA Start: 02-06-2019 ABBYLEONARDANILA Freda BALDWIN FDA Start: 02-06-2019 ABBYNEVIN Barba LENAANILA FDA Start: 02-06-2019 ABBYLEONARDANILA Freda BALDWIN FDA Start: 02-06-2019 ABBYLEONARDANILA Freda BALDWIN FDA Start: 02-06-2019 ABBYLEONARDANILA Freda PAREDESANILA FDA Start: 02-06-2019 SEALANT,FLOSEAL HEMOSTATIC 5ML FDA Start: 02-06-2019 ABBYSOYFELICITA EDOUARD WEANILA FDA Start: 02-06-2019 ABBYSOYFELICITA EDOUARD WEANILA FDA Start: 02-06-2019 ABBYLEONARDANILA ME Barba DENNY FDA Start: 02-06-2019 ABBYLEONARDANILA D WECK FDA Start: 02-06-2019 ABBYLEONARDANILA D WECK FDA Start: 02-06-2019 ABBYLEONARDANILA D WEANILA FDA Start: 02-06-2019 ABBYNEVIN D WEANILA FDA Start: 02-06-2019 SEALANT,FLOSEAL HEMOSTATIC 5ML FDA Start: 02-06-2019 ABBYSOYFELICITA EDOUARD WEANILA FDA Start: 02-06-2019 ABBYSOYFELICITA EDOUARD WEANILA FDA Start: 02-06-2019 ABBYNEVIN BALDWIN FDA Start: 02-06-2019 ABBYNEVIN D DENNY FDA Start: 02-06-2019 ABBYLEONARDANILA Freda DENNY FDA Start: 02-06-2019 ABBYLEONARDANILA D DENNY FDA Start: 02-06-2019 ABBYNEVIN BALDWIN FDA Start: 02-06-2019 SEALANT,FLOSEAL HEMOSTATIC 5ML FDA Start: 02-06-2019 ABBYSOYFELICITA EDOUARD WEANILA FDA Start: 02-06-2019 ABBYSOYFELICITA EDOUARD WEANILA FDA Start: 02-06-2019 ABBYLEONARDANILA ME Barba WEANILA FDA Start: 02-06-2019 ABBYLEONARDANILA D WEANILA FDA Start: 02-06-2019 ABBYLEONARDANILA D WEANILA FDA Start: 02-06-2019 ABBYNEVIN Barba WEANILA FDA Start: 02-06-2019 ABBYNEVIN PORRAS D WEANILA FDA Start: 02-06-2019 SEALANT,FLOSEAL HEMOSTATIC 5ML FDA Start: 02-06-2019 ABBYSOYFELICITA EDOUARD WECK FDA Start: 02-06-2019 ABBYHEMFELICITA EDOUARD WEANILA FDA Start: 02-06-2019 ABBYLEONARDANILA D WEANILA FDA Start: 02-06-2019 ABBYLEONARDANILA D WEANILA FDA Start: 02-06-2019 ABBYLEONARDANILA D WEANILA FDA Start: 02-06-2019 ABBYNEVIN PORRAS D WEANILA FDA Start: 02-06-2019 ABBYLEONARDANILA D WECK FDA Start: 02-06-2019 SEALANT,FLOSEAL HEMOSTATIC 5ML FDA Start: 02-06-2019 ABBYNEVIN BALDWIN FDA Start: 02-06-2019 CLIPNEVIN LG FDA Start: 02-06-2019 CLIP,NEVIN BALDWIN FDA Start: 02-06-2019 CLIPNEVIN FDA Start: 02-06-2019 NEVIN MORA FDA Start: 02-06-2019 NEVIN MORA FDA Start: 02-06-2019 CLIPNEVIN FDA Start: 02-06-2019 SEALANT,FLOSEAL HEMOSTATIC 5ML FDA Start: 02-06-2019 Clinical Notes 02-14-2023 to 09-20-2024 Note Date & Type Note Facility 09-20-2024 Procedure note [facility] 09-20-2024 Procedure note [facility] 09-19-2024 Evaluation note Diagnosis Onset Date Resolution Atrial flutter acute September 19, 2024 11:18am Benign essential hypertension acute September 19, 2024 11:18am [facility] Work Phone: 1(957) 720-638507-24-2025 Progress [facility] [address] [place] [address] OFFICE VISIT Date of Service: 09/19/24 MR#: [id number] Acct: [id number] Name: FERN TAPIA Rep #: [id number] : 1955 Provider: Dr. 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 [id number] score: 2 (age, HTN) (2.2% stroke risk) [...] 1146 D> Date _ Greyson Camacho MD Cosigner Signature: Date (if applicable) CC: Dr. Dairn Walton MD ~ [facility]07-24-2025 Progress note Author Greyson Camacho [facility] Note Date/Time September 19, 2024 11:4 6am [facility] [address] [place] [address] OFFICE VISIT Date of Service: 09/19/24 MR#: [id number] Acct: [id number] Name: FERN TAPIA Rep #: [id number] : 1955 Provider: Dr. 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 [id number] score: 2 (age, HTN) (2.2% stroke risk) [...] Greyson Barba> Date _ Greyson Camacho MD Cosigner Signature: Date (if applicable) CC: Dr. Darin Walton MD ~ [facility] [employer] Work Phone: 1(487) 377-933901-04-2024 Procedure [facility] 03-02-2023 Procedure [facility]12-19-2023 History and physical note Author Greyson Camacho [facility] February 14, 2023 1:33pm Note Date/Time February 14, 2023 1:04pm [facility] Medical Records Department [address] [place] [address] History & Physical Exam 02/14/23 1301 MR#: [id number] Acct: [id number] Name: FERN TAPIA Rep #:[id number] : 1955 67 From: Greyson Camacho MD PCP: Dr. Diallo Walton MD Status: PRE [facility] Location: [facility] History and Physical Date of Admission: [...] EMR Allergies See EMR Medications See EMR PFSH Medical History Atrial flutter Benign essential hypertension [...] which is unclear at this time. His [id number] score is at least 2 and my [...] Walton MD; Dr. Greyson Camacho MD~ Signed [facility] Work Phone: Evaluation noteNo assessment information available [facility] Work Phone: Evaluation note* Diagnosis Onset Date Resolution Status Atrial flutter acute Benign essential hypertension acute [facility] Work Phone: Evaluation note* Diagnosis Onset Date Resolution Status Admit Date Atrial flutter acute September 19, 2024 11:18am Benign essential hypertension acute September 19, 2024 11:18am [facility] Work Phone: Reason for referral (narrative)No [facility] Work Phone: Summary Purpose Family History No Family History Records Found Relationship Condition Age at Onset Recorded Date/T anu father Cardiac disease Unknown Advance Directives No Advanced Directives Records Found Advance Directive Response Recorded Date/ Time Living Will Yes February 06, 019 2:59pm Power of Animal Caretaker Yes February 06, 2019 2:59pm Advance Directive Response Recorded Date/ Time Living Will Yes February 06 019 1:59pm Power of Animal Caretaker Yes February 06, 2019 1:59pm Advance Directive Response Recorded Date/ Time Advance Directives on File No Febua 2023 11:02am Name of Medical Power of Animal Caretaker Mari Wolff er- Spouse March 02, 2023 11:02am Advance Directives Yes March 02, 2023 11:02am Living Will Yes March 02 11:02am Power of Animal Caretaker Yes March 02 11:02am Advance Directive Response Recorded Date/ Time Living Will Yes March 02 12:02pm Do you have a Healthcare Power of Animal Caretaker? Yes March 02, 2023 12:02pm Advance Directives Yes March 02, 2023 12:02pm Advance Directive Response Recorded Date/ Time Living Will Yes March 02 12:02pm Do you have a Healthcare Pow er of Animal Caretaker? Yes March 02, 2023 12:02pm Advance Directives on File Yes September 20, 2024 7:23am Living Will Yes September 20, 2024 7:23am Do you have a Healthcare Pow er of Animal Caretaker? Yes September 20, 2024 7:23am Name of Medical Power of Animal Caretaker Mari Wolff er- September 20, 2024 7:23am [...] 11:18am Chief Complaint Admit Date 1 Y FU September 19, 2024 11:1 8am AFIB September 20, 2024 6:40 am Atrial fibrillation September 20, 2024 8:12 am Atrial fibrillation September 20, 2024 8:29 am Chief Complaint Admit Date 1 Y FU September 19, 2024 11:1 8am AFIB September 20, 2024 6:40 am Atrial fibrillation September 20, 2024 8:12 am Atrial fibrillation September 20, 2024 8:29 am 1 W DCCV September 27, 2024 9:0 1am Additional Source Comments (unrecognized sect ion and content) No Status Records FoundNo Status Records Found INFORMATION SOURCE (unrecogn ized section and content) DATE CREATED AUTHOR 02/16/2019 [facility] ([place]) DATE CREATED AUTHOR AUTHOR'S ORGANIZ ATION 10/16/2024 [place] [facility] Goals (unrecognized section and content) Goals [...] Primary Care Provider Activ e Melany Salmeron SPORTS COMPLEX ATTENDANT, SPORTS COMPLEX ATTENDANT-C Attending Provider Active Team Status: Active Member [...] BE BASED ON THE PRIMARY CLINICAL RECORDS. [employer] provides no warranty or guarantee of the accuracy or completeness of information in this document.
[2024-10-18 07:29] LABS: Hematocrit 43.2 % (40-54); Hemoglobin 14.9 g/dL (13.0-16.5); Mean Corp Hgb Conc 34.5 g/dL (32-36); Mean Corpuscular Volume 89.8 fL (80-94); Mean Platelet Vol. 10.7 fl (6.2-12.0); Platelet Count 259 K/mm3 (150-450); RBC Distribution Width CV 12.7 % (11.6-14.6); RBC Distribution Width SD 41.8 fl (35.1-43.9); Red Blood Count 4.81 M/mm3 (4.6-6.2); White Blood Count 5.5 K/mm3 (4.4-11.0)
--- NOTE | 2024-10-18 11:19 | ELECTROSTU_ITS ---
Electrophysiology Report Electrophysiology Report Procedure: Successful radiofrequency ablation for right sided cavo-isthmus dependent atrial flutter Indication: Recurrent atrial flutter Failing pharmacological rate control Findings: CONSENT Informed consent was obtained from the patient after explaining the procedural risks, benefits, and alternatives in detail. It was explained that the risks include but are not limited to pain, bleeding, infection, vascular injury, heart attack, stroke, pulmonary or peripheral embolism, abnormal heart rhythms, recurrence of the arrhythmia, heart block requiring permanent pacemaker implantation, cardiac perforation and tamponade, hemodynamic collapse, need for emergency surgery, adverse reaction to sedation, cardiac or respiratory arrest, and . A consent form with the signature of the patient was placed in the chart. PREPARATION The patient was brought to the EP lab in a fasting state. Peripheral IV access was obtained. Continuous ECG, blood pressure, and oxygen saturation monitoring were initiated. Self-adhesive external defibrillation pads were placed on the patient. In addition, conscious sedation with iv versed/morphine was administered. I was present with the patient for the duration of moderate sedation and supervised staff who had no other duties and monitored the patient for the entire procedure. Details of monitoring are stored in laboratory flow sheet. Chlorhexadine scrubs were performed to bilateral groins. The patient was prepped and draped in the usual sterile fashion. Baseline 12-LEAD ELECTROCARDIOGRAM sinus rhythm VENOUS ACCESS: Local anesthesia was achieved with 1% lidocaine injection. Right and left femoral vein access was obtained using the modified Seldinger technique. Four introducers sheaths: 7F x1 and 5F x 2 were placed in the left femoral vein and an long 8.5Fr RAMP sheath was advanced into the right femoral vein over J wires. BASELINE EP TESTING: The patient underwent electrophysiology study with coronary sinus catheter for left atrial recording and pacing. Refer to the scanned lab report for details. ENDOCARDIAL 3D MAPPING RIGHT ATRIAL THREE-DIMENSION MAPPING: Two quadrapolar catheter were advanced into the right atrium via the left femoral vein sheaths. One decapolar catheter was positioned in the Coronary sinus for LA pacing and then repositioned in the RA. Quadripolar catheters were positioned in the His and RV apical positions. Left and Right atrial, His and right ventricular signals were recorded. After baseline electrophysiologic testing, standard techniques for ablation of isthmus dependent atrial flutter were undertaken utilizing a 4 mm tip irrigated catheter. A baseline map was constructed with electrophysiologic and anatomic markers defining the inferior aspect of the tricuspid annulus, coronary sinus ostium, and the superior aspect of the inferior vena cava. Baseline right atrial isthmus conduction properties and voltage characteristics were assessed. Post pacing intervals were used to determine that the flutter circuit was dependent on the cava tricuspid isthmus. Attempts induce atrial flutter were unsuccessful with burst pacing from the right atrium. CATHETER ABLATION: Radiofrequency energy was delivered utilizing a energy controlled system with power outputs ranging up to 35 herrera during continuous temperature and impedance monitoring. Radiofrequency applications ranged up to 60 seconds in duration. An impedance rise prompted discontinuation of radiofrequency energy and catheter tip examination. Multiple applications of RF energy were delivered in a linear fashion initiated at the tricuspid annulus and withdrawn to the superior aspect of the inferior vena cava/eustachian ridge. After linear ablation, trans-isthmus conduction properties were assessed. Trans-isthmus conduction block was defined by a marked prolongation of the conduction time, as compared to the baseline, d uring pacing medial and lateral to the ablation line. In addition, widely split atrial electrograms with an isoelectric interval were demonstrated along the ablation line. After the catheter ablation endpoints were achieved, electroanatomical mapping was performed to confirm bidirectional isthmus block. END OF PROCEDURE: At the conclusion of the procedure, Protamine was administered to reverse a nticoagulation. All catheters and introducers were removed, and manual pressure was held to achieve complete hemostasis. The patient tolerated the procedure well and was transferred to the recovery room in stable condition. I was present for and performed the entire procedure. FINDINGS: Sinus node recovery time was 1166 ms, CSNRT: 186 ms Antegrade Wenckebach cycle length was 450 ms. Atrial effective refractory period was 600/200 ms AV node effective refractory period was 600/300 ms Retrograde Wenckebach cycle length was >800 ms. Ventricular effective refractory period was 600/220 ms Baseline Isthmus conduction was 90 ms bidirectionally Post ablation Isthmus conduction was 150 ms bidirectionally FLUOROSCOPY 6.3 minutes CONTRAST None ESTIMATED BLOOD LOSS 20 mL Recommendations: 4 hours of bedrest. Ok for discharge to home in am. Continue current home medications
--- NOTE | 2024-10-18 12:36 | DCINST_ITS ---
Discharge Instructions DC O2, CPAP, BIPAP needs Home O2 Discharge instructions: No Dressing / Incision Discharge Activity: Return to Normal Activity and - May resume sexual activity in: 1 week Dressing / Incision Call your doctor if you observe: Fever of 101 or Higher and Uncontrolled pain Remove Dressing in: 1 day Follow Up Care Please Follow Up With: Greyson Camacho MD When: 2-4 weeks Test Results: Test results from this visit will be discussed in further detail at your follow- up appointment, if applicable. Discharge Plan Admission Admit Date/Time: 10/18/24 17:32 Primary Reason for Your Visit: A fluttrer ablation Attending Provider: Good Benitez Primary Care Provider: Darin Walton Discharge Orders/Prescriptions Prescriptions: Continued atorvastatin 20 mg tablet 20 mg PO QDAY lisinopril-hydrochlorothiazide 1 EACH tablet 1 ea PO DAILY Eliquis 5 mg tablet 5 mg PO BID Qty: 360 1RF metoprolol tartrate 25 mg tablet 25 mg PO BID Qty: 180 3RF Referrals / Follow Up: Darin Walton MD [Primary Care Provider] - Disposition Disposition (needs filled in before D/C Order can be placed): Home, Self Care
[2024-10-18] MEDS: APIXABAN 5 MG TABLET PO (21:35)
[2024-10-18] MEDS: 0.9% Saline Lock 10 ML Syringe IV (21:36)
[2024-10-19 00:15] VITALS: BP 120/77; PULSE 61; RESP 16; TEMP 36.6; O2SAT 96
[2024-10-19 04:15] VITALS: BP 112/68; PULSE 65; RESP 16; TEMP 36.7; O2SAT 94
--- NOTE | 2024-10-19 05:55 | EKG12_ITS ---
Test Reason : AM EKG Blood Pressure : */* mmHG Vent. Rate : 63 BPM Atrial Rate : 63 BPM P-R Int : 216 ms QRS Dur : 94 ms QT Int : 402 ms P-R-T Axes : 68 -1 20 degrees QTcB Int : 411 ms Sinus rhythm with 1st degree A-V block Otherwise normal ECG When compared with ECG of 27-Sep-2024 09:07, No significant change was found Confirmed by NURYS WEN, ADOLPH ([id number]), scientific publications editor ZACK ERVIN ([id number]) on 10/21/2024 12:58:57 PM Referred By: Good Benitez Confirmed By: ADOLPH NUNO MD
[2024-10-19 06:36] LABS: Hematocrit 39.9 % (40-54); Hemoglobin 14.0 g/dL (13.0-16.5); Mean Corp Hgb Conc 35.1 g/dL (32-36); Mean Corpuscular Volume 89.5 fL (80-94); Mean Platelet Vol. 10.6 fl (6.2-12.0); Platelet Count 217 K/mm3 (150-450); RBC Distribution Width CV 12.8 % (11.6-14.6); RBC Distribution Width SD 42.3 fl (35.1-43.9); Red Blood Count 4.46 M/mm3 (4.6-6.2); White Blood Count 8.5 K/mm3 (4.4-11.0)
[2024-10-19 08:45] VITALS: BP 116/84; PULSE 70; RESP 15; TEMP 36.5; O2SAT 97
[2024-10-19 08:46] VITALS: PULSE 70
[2024-10-19] MEDS: APIXABAN 5 MG TABLET PO (08:47)
--- NOTE | 2024-10-19 11:30 | CASEMGMT ---
Met with patient to review SCHRADER form. SCHRADER form and its content were verbally explained and patient?s questions were answered to the best of my ability. Patient voiced understanding and signed SCHRADER form. Patient provided a copy of signed SCHRADER form and original placed in patient?s chart. Patient had no further questions or concerns. Pt states that he is indep and lives at home with his . Pt states that he is already on home Eliquis and that he is able to afford this as he goes to [place] to get the generic form. Pt states that he sees [facility] and that they are aware of this and that they are OK with this. Pt denies further questions or concerns at this time and is ready for DC home.
[2024-10-19 13:13] VITALS: BP 105/65; PULSE 61; RESP 16; TEMP 37; O2SAT 97
== END 2024-10-19 13:30 | disposition home or self-care (01) ==
LOC: PCU 17:50
PROVIDERS: Admitting Provider Internal Medicine Clinical Cardiac Electrophysiology; PCP Family Medicine; Referring Provider Internal Medicine Clinical Cardiac Electrophysiology; Visit Provider Internal Medicine Clinical Cardiac Electrophysiology
DX: I48.92 Unspecified atrial flutter (principal); I10 Essential (primary) hypertension; Z79.01 Long term (current) use of anticoagulants; Z79.899 Other long term (current) drug therapy; Z87.891 Personal history of nicotine dependence; R00.0 Tachycardia, unspecified; I44.0 Atrioventricular block, first degree
CPT/HCPCS: 36415; 85027; 93005; 93653; 99152; 99153; 99221; C1730; C1731; C1893; C1894; C2630; A4216; G0378